=== PATIENT | female | born 1980 | race Caucasian/White ===

== ENCOUNTER 2017-01-27 09:12 | Emergency (ER) | payer BC ==
--- NOTE | 2017-01-27 10:06 | EDM.PDOC ---
ED HPI GENERAL MEDICAL PROBLEM - General Chief Complaint: General Stated Complaint: LOW BLOOD PRESSURE Time Seen by Provider: 01/27/17 09:20 - History of Present Illness INITIAL COMMENTS - FREE TEXT/NARRATIVE: History of present illness: [36 yo female with history of HTN presents with low blood pressure 80/60. She was feeling lightheaded and nauseated this morning. She checked her blood pressure again it was 70/60. She is taking losartan and HCTZ everyday. No recent dose changes. She does have a viral illness for a week which was mild othewise no new changes. She is chronic smoker and does not know if she has COPD. She denies fever, chills, vomiting, diarrhea, abdominal pain, chest pain, sob, cough] Review of systems: As per history of present illness and below otherwise all systems reviewed and negative. Past medical history: As per history of present illness and as reviewed below otherwise noncontributory. Surgical history: As per history of present illness and as reviewed below otherwise noncontributory. Social history: No reported history of drug or alcohol abuse. Family history: As per history of present illness and as reviewed below otherwise noncontributory. Physical exam: General: Well developed, well nourished in NAD HEENT: Atraumatic, normocephalic, pupils reactive, negative for conjunctival pallor or scleral icterus, mucous membranes moist, throat clear, neck supple, nontender, trachea midline. Lungs: Clear to auscultation, breath sounds equal bilaterally, chest nontender. Heart: S1S2, tachycardia regular rhythm , negative for clicks, rubs, or JVD. Abdomen: Soft, nondistended, nontender. Negative for masses or hepatosplenomegaly. Negative for costovertebral tenderness. Pelvis: Stable nontender. Genitourinary: Deferred. Rectal: Deferred. Extremities: Atraumatic, negative for cords or calf pain. Neurovascular unremarkable. Neuro: Awake, alert, oriented. Cranial nerves II through XII unremarkable. Cerebellum unremarkable. Motor and sensory unremarkable throughout. Exam nonfocal. Diagnostics: [cbc, bmp, ] Therapeutics: [IVF, potassium 40 meq po x 1 ] Impression: 1.Sinus Tachycardia [2. Hyptotension] Plan: [Tachycardia improved with IVF Her HR is 88 Advised to quit smoking, decrease caffeine f/u with pcp on monday. work note given until seen by PCP on monday.] Definitive disposition and diagnosis as appropriate pending reevaluation and review of above. - Related Data Allergies Allergy/AdvReac Type Severity Reaction Status Date / Time morphine Allergy Severe Difficulty Verified 01/27/17 09:17 Breathing Penicillins Allergy Severe Rash Verified 01/27/17 09:17 2 BP Meds Allergy Depression Uncoded 01/27/17 09:17 Home Meds: Home Meds LORazepam [Ativan] 0.5 mg PO ASDIRECTED PRN 06/02/15 [History] Losartan [Cozaar] 100 mg PO DAILY 06/02/15 [History] Albuterol Sulfate [Proair Hfa] 8.5 gm IH ASDIRECTED 01/17/16 [History] Aspirin 81 mg PO DAILY 04/10/16 [History] atorvaSTATin [Lipitor] 20 mg PO DAILY 04/10/16 [History] Hydrochlorothiazide 25 mg PO DAILY 10/12/16 [History] Past Medical History HEENT History: Reports: Impaired vision Cardiovascular History: Reports: Angina, High cholesterol, Hypertension Other Cardiovascular History: "time when heart does not relax" Gastrointestinal History: Reports: Cholelithiasis 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: Polycystic Ovaries Other OB/BYN History: CS Musculoskeletal History: Reports: Fracture Endocrine/Metabolic History: Reports: Obesity/BMI 30+ - Infectious Disease History Infectious Disease History: Reports: Chicken pox - Past Surgical History Female Surgical History: Reports: Cystectomy Social & Family History - Family History Family Medical History: Noncontributory - Tobacco Use Smoking Status *Q: Current Every Day Smoker Years of Tobacco use: 20 Packs/Tins Daily: 0.5 - Caffeine Use Caffeine Use: Reports: Soda - Recreational Drug Use Recreational Drug Use: No ED ROS GENERAL - Review of Systems Review Of Systems: See Below (See history of present illness) ED EXAM, GENERAL - Physical Exam Exam: See Below (The history of present illness) Course - Vital Signs Last Recorded V/S: Last Vital Signs Temp 97.4 F 01/27/17 09:19 Pulse 122 H 01/27/17 09:19 Resp 18 01/27/17 09:19 BP 122/79 01/27/17 09:19 Pulse Ox 99 01/27/17 09:19 Orthostatic Blood Pressure [ 95/61 Standing] Orthostatic Blood Pressure [ 122/75 Sitting] Orthostatic Blood Pressure [ 98/59 Supine] - Orders/Labs/Meds Orders: Active Orders 24 hr Category Date Time Status EKG Documentation Completion [RC] STAT Care 01/27/17 09:21 Active Orthostatic Vital Signs [RC] ASDIRECTED Care 01/27/17 10:20 Active MAGNESIUM [CHEM] Stat Lab 01/27/17 10:36 Received Potassium Chloride [Klor-Con M20] Med 01/27/17 11:45 Active 40 meq PO DAILY Medication Orders Potassium Chloride (Klor-Con M20) 40 meq PO DAILY SARA Labs: Laboratory Tests 01/27/17 01/27/17 01/27/17 Range/Units 10:36 10:36 10:36 WBC 9.04 (4.0-11.0) K/uL RBC 5.11 (4.30-5.90) M/uL Hgb 15.8 (12.0-16.0) g/dL Hct 44.1 (36.0-46.0) % MCV 86.3 (80.0-98.0) fL MCH 30.9 (27.0-32.0) pg MCHC 35.8 (31.0-37.0) g/dL RDW Std Deviation 41.8 (28.0-62.0) fl RDW Coeff of Pascale 13 (11.0-15.0) % Plt Count 294 (150-400) K/uL MPV 9.30 (7.40-12.00) fL Neut % (Auto) 58.4 (48.0-80.0) % Lymph % (Auto) 29.9 (16.0-40.0) % Woods % (Auto) 9.3 (0.0-15.0) % Eos % (Auto) 1.8 (0.0-7.0) % Baso % (Auto) 0.6 (0.0-1.5) % Neut # (Auto) 5.3 (1.4-5.7) K/uL Lymph # (Auto) 2.7 H (0.6-2.4) K/uL Woods # (Auto) 0.8 (0.0-0.8) K/uL Eos # (Auto) 0.2 (0.0-0.7) K/uL Baso # (Auto) 0.1 (0.0-0.1) K/uL Nucleated RBC % 0.0 /100WBC Nucleated RBCs # 0 K/uL Sodium 135 L (136-146) mmol/L Potassium 3.0 L (3.5-5.1) mmol/L Chloride 99 (98-110) mmol/L Carbon Dioxide 23 (21-31) mmol/L BUN 17 (6.0-23.0) mg/dL Creatinine 1.3 (0.6-1.5) mg/dL Est Cr Clr Drug Dosing 46.41 mL/min Estimated GFR (MDRD) 45.8 ml/min Glucose 139 H (60-110) mg/dL Calcium 9.5 (8.8-10.8) mg/dL Troponin I < 0.10 (0.0-0.29) NG/ML Meds: Medications Generic Name Dose Route Start Last Admin Trade Name Freq PRN Reason Stop Dose Admin Potassium Chloride 40 meq 01/27/17 11:45 Klor-Con M20 PO DAILY SARA Discontinued Medications Generic Name Dose Route Start Last Admin Trade Name Freq PRN Reason Stop Dose Admin Sodium Chloride 1,000 mls @ 999 mls/hr 01/27/17 10:20 01/27/17 11:08 Normal Saline IV 01/27/17 11:20 999 mls/hr STAT ONE Administration Departure - Departure Time of Disposition: 12:03 Disposition: Home, Self-Care 01 Condition: good Clinical Impression: Hypotension Referrals: PCP,None [Primary Care Provider] - Forms: ED Department Discharge Additional Instructions: The following information is given to patients seen in the emergency department who are being discharged to home. This information is to outline your options for follow-up care. We provide all patients seen in our emergency department with a follow-up referral. The need for follow-up, as well as the timing and circumstances, are variable depending upon the specifics of your emergency department visit. If you don't have a primary care physician on staff, we will provide you with a referral. We always advise you to contact your personal physician following an emergency department visit to inform them of the circumstance of the visit and for follow-up with them and/or the need for any referrals to a consulting specialist. The emergency department will also refer you to a specialist when appropriate. This referral assures that you have the opportunity for follow-up care with a specialist. All of these measure are taken in an effort to provide you with optimal care, which includes your follow-up. Under all circumstances we always encourage you to contact your private physician who remains a resource for coordinating your care. When calling for follow-up care, please make the office aware that this follow-up is from your recent emergency room visit. If for any reason you are refused follow-up, please contact the [facility] Emergency Department at and asked to speak to the emergency department charge nurse. - My Orders Last 24 Hours: My Active Orders 01/27/17 09:21 EKG Documentation Completion [RC] STAT 01/27/17 10:20 Orthostatic Vital Signs [RC] ASDIRECTED 01/27/17 10:36 MAGNESIUM [CHEM] Stat 01/27/17 11:45 Potassium Chloride [Klor-Con M20] 40 meq PO DAILY - Assessment/Plan Last 24 Hours: My Active Orders 01/27/17 09:21 EKG Documentation Completion [RC] STAT 01/27/17 10:20 Orthostatic Vital Signs [RC] ASDIRECTED 01/27/17 10:36 MAGNESIUM [CHEM] Stat 01/27/17 11:45 Potassium Chloride [Klor-Con M20] 40 meq PO DAILY
[2017-01-27] MEDS ORDERED: Sodium Chloride 0.9% 1,000 ML IV ONE (10:20)
[2017-01-27] MEDS ORDERED: Potassium Chloride 20 MEQ Tab.ER PO SCH (11:45)
[2017-01-27 12:31] VITALS: BP 113/68
== END 2017-01-27 12:17 | disposition home or self-care (01) ==
LOC: MW.ED 09:12
DX: I95.9 Hypotension, unspecified (principal); R00.0 Tachycardia, unspecified; I20.9 Angina pectoris, unspecified; E78.00 Pure hypercholesterolemia, unspecified; F17.210 Nicotine dependence, cigarettes, uncomplicated; E66.9 Obesity, unspecified; Z68.37 Body mass index [BMI] 37.0-37.9, adult; Z79.82 Long term (current) use of aspirin; Z79.899 Other long term (current) drug therapy; Z88.0 Allergy status to penicillin; Z88.5 Allergy status to narcotic agent; Z90.49 Acquired absence of other specified parts of digestive tract
CPT/HCPCS: 36415; 80048; 83735; 84484; 85025; 93005; 96360; 99285; A9270; J7040; 99283

== ENCOUNTER 2018-01-15 14:47 | Observation (INO) | payer BC ==
[2018-01-15] MEDS ORDERED: Alum Hydrox/Mag Hydrox/Simeth 15 ML, Metoclopramide 5 MG, Lidocaine 2% 5 ML PO ONE ×3 (14:59)
[2018-01-15] MEDS ORDERED: Aspirin 81 MG Tab.Chew PO ONE (14:59)
[2018-01-15] MEDS ORDERED: Sodium Chloride 0.9% 10 ML Syringe FLUSH PRN (14:59)
[2018-01-15] MEDS ORDERED: Famotidine 20 MG/2 ML SDV IVPUSH ONE (14:59)
[2018-01-15] MEDS ORDERED: Sodium Chloride 0.9% 2.5 ML Syringe FLUSH PRN (14:59)
[2018-01-15] MEDS ORDERED: Sodium Chloride 0.9% 1,000 ML IV ONE (14:59)
--- NOTE | 2018-01-15 15:16 | EDM.PDOC ---
ED HPI GENERAL MEDICAL PROBLEM - General Chief Complaint: Cardiovascular Problem Stated Complaint: HBP Time Seen by Provider: 01/15/18 15:14 Source of Information: Reports: Patient History Limitations: Reports: No Limitations - History of Present Illness INITIAL COMMENTS - FREE TEXT/NARRATIVE: HISTORY AND PHYSICAL: []37-year-old female presenting with elevated blood pressure tightness across the anterior chest History of Present Illness: []She has been having these symptoms for the last 3 days. Patient's regular physician is Dr. Floyd Sahni at [facility]. Denies any chest pain arm difficulties pain into her jaw She does have a headache. Patient has taken beta socorro of metoprolol in the past. she relates to having increased depression after taking it for a period of time. Review of Systems: As per history of present illness and below otherwise all systems reviewed and negative. Past medical history: As per history of present illness and as reviewed below otherwise noncontributory. Surgical history: As per history of present illness and as reviewed below otherwise noncontributory. Social history: No reported history of drug or alcohol abuse. Family history: As per history of present illness and as reviewed below otherwise noncontributory. Physical exam: Alert and oriented obese female who is answering questions appropriately. She is speaking in full sentences without any shortness of breath. Patient does state that she is out of breath when she walks across the room and she has had a full workup by Dr. Rebolledo [employer] HEENT: Atraumatic, normocehpalic, pupils reactive, negative for conjunctival pallor or scleral icterus, mucous membranes moist, throat clear, neck supple, nontender, trachea midline. No carotid bruit. Lungs: Clear to auscultation, breath sounds equal bilaterally, chest tender on light palpation. Heart: S1S2, regular, negative for clicks, rubs, or JVD. Abdomen: Soft, nondistended, nontender. Negative for masses or hepatossplenmegaly. Negative for costovertebral tenderness. Pelvis: Stable nontender. Genitourinary: Deferred. Rectal: Deferred Extremities: Atraumatic, negative for cords or calf pain. Neurovascular unremarkable. Neuro: Awake, alert, oriented. Cranial nerves II through XII unremarkable. Cerebellum unremarkable. Motor and sensory unremarkable throughout. Exam nonfocal. discussed the test results with patient. have recommended the Cardizem 30 mg po she is agreeable to trial this medication. While laying down pulse oximeter heart rate showing 40 . EKG requested showing rate in the 80s but a bigeminal rate was noted . Have discussed this case with Dr. Reddy who is agreeable for observation on telemetry. Diagnostics: [CBC CMP troponin chest x-ray urine ] Amylase lipase EKG Therapeutics: []Cardizem 30 mg by mouth LR 1 L Pepcid IV Aspirin 324 Impression: [Hypertension uncontrolled] Chest wall pain Plan: []Refer to observation Telemetry Definitive disposition and diagnosis as appropriate pending reevaluation and review of above. Onset: Gradual Duration: Day(s): (3) Location: Reports: Chest Quality: Reports: Other (tightness) Severity: Moderate Improves with: Reports: None Worsens with: Reports: None Associated Symptoms: Reports: No Other Symptoms Chest Pain Score (Numeric/FACES): 1 Headache Pain Score (Numeric/FACES): 9 - Related Data Allergies Allergy/AdvReac Type Severity Reaction Status Date / Time morphine Allergy Severe Difficulty Verified 01/15/18 15:12 Breathing Penicillins Allergy Severe Rash Verified 01/15/18 15:12 2 BP Meds Allergy Depression Uncoded 01/27/17 09:17 Home Meds: Home Meds LORazepam [Ativan] 0.5 mg PO BID PRN 06/02/15 [History] Losartan [Cozaar] 100 mg PO DAILY 06/02/15 [History] Albuterol Sulfate [Proair Hfa] 8.5 gm IH ASDIRECTED 01/17/16 [History] Aspirin 81 mg PO DAILY 04/10/16 [History] atorvaSTATin [Lipitor] 20 mg PO DAILY 04/10/16 [History] Hydrochlorothiazide 12.5 mg PO DAILY 10/12/16 [History] Potassium Chloride [Klor-Con M20] 20 meq PO DAILY 01/15/18 [History] buPROPion [buPROPion XL] 150 mg PO DAILY 01/15/18 [History] metFORMIN HCl [Metformin HCl] 1,000 mg PO BIDAC 01/15/18 [History] Past Medical History HEENT History: Reports: Impaired Vision Cardiovascular History: Reports: Angina, High Cholesterol, Hypertension Other Cardiovascular History: "time when heart does not relax" Gastrointestinal History: Reports: Cholelithiasis [employer]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 Other OB/BYN History: CS Musculoskeletal History: Reports: Fracture Endocrine/Metabolic History: Reports: Obesity/BMI 30+ - Infectious Disease History Infectious Disease History: Reports: Chicken Pox - Past Surgical History Female Surgical History: Reports: Cystectomy Social & Family History - Family History Family Medical History: Noncontributory - Tobacco Use Smoking Status *Q: Current Every Day Smoker Years of Tobacco use: 20 Packs/Tins Daily: 0.5 - Caffeine Use Caffeine Use: Reports: Soda - Recreational Drug Use Recreational Drug Use: No ED ROS GENERAL - Review of Systems Review Of Systems: ROS reveals no pertinent complaints other than HPI. ED EXAM, GENERAL - Physical Exam Exam: See Below (see dictation) Course - Vital Signs Last Recorded V/S: Last Vital Signs Temp 36.8 C 01/15/18 17:20 Pulse 45 L 01/15/18 17:20 Resp 20 01/15/18 17:20 BP 129/88 01/15/18 19:51 Pulse Ox 95 01/15/18 17:26 - Orders/Labs/Meds Orders: Active Orders 24 hr Category Date Time Status EKG Documentation Completion [RC] STAT Care 01/15/18 14:59 Active EKG Documentation Completion [RC] STAT Care 01/15/18 16:59 Active Oxygen Therapy [RC] ASDIRECTED Care 01/15/18 14:59 Active Sodium Chloride 0.9% [Saline Flush] Med 01/15/18 14:59 Active 10 ml FLUSH ASDIRECTED PRN Sodium Chloride 0.9% [Saline Flush] Med 01/15/18 14:59 Active 2.5 ml FLUSH ASDIRECTED PRN Saline Lock Insert [OM.PC] Stat Oth 01/15/18 14:59 Ordered Medication Orders Acetaminophen (Tylenol) 650 mg PO Q4H PRN PRN Reason: Pain (Mild 1-3)/fever Albuterol (Ventolin Hfa) 0 gm INH ASDIRECTED PRN PRN Reason: SHORTNESS OF BREATH Atorvastatin Calcium (Lipitor) 20 mg PO DAILY [facility] Last Admin: 01/15/18 19:54 Dose: 20 mg Bupropion HCl (Wellbutrin Xl) 150 mg PO DAILY [facility] Enoxaparin Sodium (Lovenox) 40 mg SUBCUT DAILY [facility] Last Admin: 01/15/18 19:55 Dose: 40 mg Hydrochlorothiazide (Hydrochlorothiazide) 12.5 mg PO DAILY [facility] Last Admin: 01/15/18 19:50 Dose: 12.5 mg Magnesium Sulfate 4 gm/ Premix 100 mls @ 25 mls/hr IV ONETIME ONE Stop: 01/15/18 22:58 Last Admin: 01/15/18 19:49 Dose: 25 mls/hr Losartan Potassium (Cozaar) 100 mg PO DAILY [facility] Last Admin: 01/15/18 19:51 Dose: 100 mg Ondansetron HCl (Zofran) 4 mg IVPUSH Q4H PRN PRN Reason: Nausea/Vomiting Sodium Chloride (Saline Flush) 10 ml FLUSH ASDIRECTED PRN PRN Reason: Keep Vein Open Sodium Chloride (Saline Flush) 2.5 ml FLUSH ASDIRECTED PRN PRN Reason: Keep Vein Open Labs: Laboratory Tests 01/15/18 01/15/18 01/15/18 Range/Units 15:14 15:14 15:14 WBC 8.80 (4.0-11.0) K/uL RBC 4.70 (4.30-5.90) M/uL Hgb 14.8 (12.0-16.0) g/dL Hct 41.3 (36.0-46.0) % MCV 87.9 (80.0-98.0) fL MCH 31.5 (27.0-32.0) pg MCHC 35.8 (31.0-37.0) g/dL RDW Std Deviation 43.0 (28.0-62.0) fl RDW Coeff of Pascale 13 (11.0-15.0) % Plt Count 272 (150-400) K/uL MPV 9.00 (7.40-12.00) fL Neut % (Auto) 62.9 (48.0-80.0) % Lymph % (Auto) 28.4 (16.0-40.0) % Barren % (Auto) 5.6 (0.0-15.0) % Eos % (Auto) 2.8 (0.0-7.0) % Baso % (Auto) 0.3 (0.0-1.5) % Neut # (Auto) 5.5 (1.4-5.7) K/uL Lymph # (Auto) 2.5 H (0.6-2.4) K/uL Barren # (Auto) 0.5 (0.0-0.8) K/uL Eos # (Auto) 0.3 (0.0-0.7) K/uL Baso # (Auto) 0.0 (0.0-0.1) K/uL Nucleated RBC % 0.0 /100WBC Nucleated RBCs # 0 K/uL INR 0.94 Sodium 135 L (136-145) mmol/L Potassium 3.8 (3.5-5.1) mmol/L Chloride 101 (98-107) mmol/L Carbon Dioxide 23.8 (21.0-32.0) mmol/L BUN 10 (7.0-18.0) mg/dL Creatinine 0.7 (0.6-1.0) mg/dL Est Cr Clr Drug Dosing 85.34 mL/min Estimated GFR (MDRD) > 60.0 ml/min Glucose 227 H (74-106) mg/dL Hemoglobin A1c (4.5-6.2) % Calcium 8.1 L (8.5-10.1) mg/dL Magnesium (1.5-2.0) mg/dL Total Bilirubin 0.2 (0.2-1.0) mg/dL AST 19 (15-37) IU/L ALT 38 (14-63) IU/L Alkaline Phosphatase 65 (46-116) U/L Troponin I < 0.050 (0.000-0.056) ng/mL Total Protein 6.6 (6.4-8.2) g/dL Albumin 3.2 L (3.4-5.0) g/dL Globulin 3.4 (2.0-3.5) g/dL Albumin/Globulin Ratio 0.9 L (1.3-2.8) Amylase 27 (25-115) U/L Lipase 117 (73-393) U/L Urine Color Urine Appearance Urine pH (5.0-8.0) Ur Specific [place] (1.001-1.035) Urine Protein (NEGATIVE) mg/dL Urine Glucose (UA) (NEGATIVE) mg/dL Urine Ketones (NEGATIVE) mg/dL Urine Occult Blood (NEGATIVE) Urine Nitrite (NEGATIVE) Urine Bilirubin (NEGATIVE) Urine Urobilinogen (<2.0) EU/dL Ur Leukocyte Esterase (NEGATIVE) Urine RBC (0-2/HPF) Urine WBC (0-5/HPF) Ur Epithelial Cells (NONE-FEW) Urine Bacteria (NEGATIVE) Urine HCG, Qual (NEGATIVE) 01/15/18 01/15/18 01/15/18 Range/Units 15:14 15:47 16:13 WBC (4.0-11.0) K/uL RBC (4.30-5.90) M/uL Hgb (12.0-16.0) g/dL Hct (36.0-46.0) % MCV (80.0-98.0) fL MCH (27.0-32.0) pg MCHC (31.0-37.0) g/dL RDW Std Deviation (28.0-62.0) fl RDW Coeff of Pascale (11.0-15.0) % Plt Count (150-400) K/uL MPV (7.40-12.00) fL Neut % (Auto) (48.0-80.0) % Lymph % (Auto) (16.0-40.0) % Barren % (Auto) (0.0-15.0) % Eos % (Auto) (0.0-7.0) % Baso % (Auto) (0.0-1.5) % Neut # (Auto) (1.4-5.7) K/uL Lymph # (Auto) (0.6-2.4) K/uL Barren # (Auto) (0.0-0.8) K/uL Eos # (Auto) (0.0-0.7) K/uL Baso # (Auto) (0.0-0.1) K/uL Nucleated RBC % /100WBC Nucleated RBCs # K/uL INR Sodium (136-145) mmol/L Potassium (3.5-5.1) mmol/L Chloride (98-107) mmol/L Carbon Dioxide (21.0-32.0) mmol/L BUN (7.0-18.0) mg/dL Creatinine (0.6-1.0) mg/dL Est Cr Clr Drug Dosing mL/min Estimated GFR (MDRD) ml/min Glucose (74-106) mg/dL Hemoglobin A1c 6.5 H (4.5-6.2) % Calcium (8.5-10.1) mg/dL Magnesium 1.2 L (1.5-2.0) mg/dL Total Bilirubin (0.2-1.0) mg/dL AST (15-37) IU/L ALT (14-63) IU/L Alkaline Phosphatase (46-116) U/L Troponin I (0.000-0.056) ng/mL Total Protein (6.4-8.2) g/dL Albumin (3.4-5.0) g/dL Globulin (2.0-3.5) g/dL Albumin/Globulin Ratio (1.3-2.8) Amylase (25-115) U/L Lipase (73-393) U/L Urine Color Urine Appearance Urine pH (5.0-8.0) Ur Specific [place] (1.001-1.035) Urine Protein (NEGATIVE) mg/dL Urine Glucose (UA) (NEGATIVE) mg/dL Urine Ketones (NEGATIVE) mg/dL Urine Occult Blood (NEGATIVE) Urine Nitrite (NEGATIVE) Urine Bilirubin (NEGATIVE) Urine Urobilinogen (<2.0) EU/dL Ur Leukocyte Esterase (NEGATIVE) Urine RBC (0-2/HPF) Urine WBC (0-5/HPF) Ur Epithelial Cells (NONE-FEW) Urine Bacteria (NEGATIVE) Urine HCG, Qual NEGATIVE (NEGATIVE) 01/15/18 Range/Units 16:16 WBC (4.0-11.0) K/uL RBC (4.30-5.90) M/uL Hgb (12.0-16.0) g/dL Hct (36.0-46.0) % MCV (80.0-98.0) fL MCH (27.0-32.0) pg MCHC (31.0-37.0) g/dL RDW Std Deviation (28.0-62.0) fl RDW Coeff of Pascale (11.0-15.0) % Plt Count (150-400) K/uL MPV (7.40-12.00) fL Neut % (Auto) (48.0-80.0) % Lymph % (Auto) (16.0-40.0) % Barren % (Auto) (0.0-15.0) % Eos % (Auto) (0.0-7.0) % Baso % (Auto) (0.0-1.5) % Neut # (Auto) (1.4-5.7) K/uL Lymph # (Auto) (0.6-2.4) K/uL Barren # (Auto) (0.0-0.8) K/uL Eos # (Auto) (0.0-0.7) K/uL Baso # (Auto) (0.0-0.1) K/uL Nucleated RBC % /100WBC Nucleated RBCs # K/uL INR Sodium (136-145) mmol/L Potassium (3.5-5.1) mmol/L Chloride (98-107) mmol/L Carbon Dioxide (21.0-32.0) mmol/L BUN (7.0-18.0) mg/dL Creatinine (0.6-1.0) mg/dL Est Cr Clr Drug Dosing mL/min Estimated GFR (MDRD) ml/min Glucose (74-106) mg/dL Hemoglobin A1c (4.5-6.2) % Calcium (8.5-10.1) mg/dL Magnesium (1.5-2.0) mg/dL Total Bilirubin (0.2-1.0) mg/dL AST (15-37) IU/L ALT (14-63) IU/L Alkaline Phosphatase (46-116) U/L Troponin I (0.000-0.056) ng/mL Total Protein (6.4-8.2) g/dL Albumin (3.4-5.0) g/dL Globulin (2.0-3.5) g/dL Albumin/Globulin Ratio (1.3-2.8) Amylase (25-115) U/L Lipase (73-393) U/L Urine Color YELLOW Urine Appearance CLEAR Urine pH 7.0 (5.0-8.0) Ur Specific [place] 1.010 (1.001-1.035) Urine Protein NEGATIVE (NEGATIVE) mg/dL Urine Glucose (UA) >=1000 (NEGATIVE) mg/dL Urine Ketones NEGATIVE (NEGATIVE) mg/dL Urine Occult Blood NEGATIVE (NEGATIVE) Urine Nitrite NEGATIVE (NEGATIVE) Urine Bilirubin NEGATIVE (NEGATIVE) Urine Urobilinogen 0.2 (<2.0) EU/dL Ur Leukocyte Esterase NEGATIVE (NEGATIVE) Urine RBC 0-1 (0-2/HPF) Urine WBC 0-1 (0-5/HPF) Ur Epithelial Cells RARE (NONE-FEW) Urine Bacteria RARE (NEGATIVE) Urine HCG, Qual (NEGATIVE) Meds: Medications Generic Name Dose Route Start Last Admin Trade Name Cordell PRN Reason Stop Dose Admin Acetaminophen 650 mg 01/15/18 18:58 Tylenol PO Q4H PRN Pain (Mild 1-3)/fever Albuterol 0 gm 01/15/18 19:27 Ventolin Hfa INH ASDIRECTED PRN SHORTNESS OF BREATH Atorvastatin Calcium 20 mg 01/15/18 19:30 01/15/18 19:54 Lipitor PO 20 mg DAILY SARA Administration Bupropion HCl 150 mg 01/16/18 09:00 Wellbutrin Xl PO DAILY SARA Enoxaparin Sodium 40 mg 01/15/18 19:00 01/15/18 19:55 Lovenox SUBCUT 40 mg DAILY SARA Administration Hydrochlorothiazide 12.5 mg 01/15/18 19:15 01/15/18 19:50 Hydrochlorothiazide PO 12.5 mg DAILY SARA Administration Magnesium Sulfate 4 gm/ Premix 100 mls @ 25 mls/hr 01/15/18 18:59 01/15/18 19 :49 IV 01/15/18 22:58 25 mls/hr ONETIME ONE Administration Losartan Potassium 100 mg 01/15/18 19:15 01/15/18 19:51 Cozaar PO 100 mg DAILY SARA Administration Ondansetron HCl 4 mg 01/15/18 18:58 Zofran IVPUSH Q4H PRN Nausea/Vomiting Sodium Chloride 10 ml 01/15/18 14:59 Saline Flush FLUSH ASDIRECTED PRN Keep Vein Open Sodium Chloride 2.5 ml 01/15/18 14:59 Saline Flush FLUSH ASDIRECTED PRN Keep Vein Open Discontinued Medications Generic Name Dose Route Start Last Admin Trade Name oCrdell PRN Reason Stop Dose Admin Aspirin 324 mg 01/15/18 14:59 01/15/18 15:31 Aspirin PO 01/15/18 15:00 324 mg ONETIME ONE Administration Al Hydroxide/Mg Hydroxide 15 0 ml 01/15/18 14:59 01/15/18 15:32 ml/ Metoclopramide HCl 5 mg/ PO 01/15/18 15:00 1 each Lidocaine HCl 5 ml ONETIME ONE Administration Diltiazem HCl 30 mg 01/15/18 16:11 01/15/18 16:34 Cardizem PO 01/15/18 16:12 30 mg ONETIME ONE Administration Famotidine 20 mg 01/15/18 14:59 01/15/18 15:33 Pepcid IVPUSH 01/15/18 15:00 20 mg ONETIME ONE Administration Sodium Chloride 1,000 mls @ 999 mls/hr 01/15/18 14:59 01/15/18 15:37 Normal Saline IV 01/15/18 15:59 Not Given .Bolus ONE Lactated Ringer's 1,000 mls @ 999 mls/hr 01/15/18 15:34 01/15/18 15:35 Ringers, Lactated IV 01/15/18 16:34 999 mls/hr .BOLUS ONE Administration Departure - Departure Time of Disposition: 17:15 Disposition: Refer to Observation Condition: Good Clinical Impression: Bradycardia High blood pressure Qualifiers: Hypertension type: unspecified Qualified Code(s): I10 - Essential (primary) hypertension - My Orders Last 24 Hours: My Active Orders 01/15/18 14:59 EKG Documentation Completion [RC] STAT Oxygen Therapy [RC] ASDIRECTED Sodium Chloride 0.9% [Saline Flush] 10 ml FLUSH ASDIRECTED PRN Sodium Chloride 0.9% [Saline Flush] 2.5 ml FLUSH ASDIRECTED PRN Saline Lock Insert [OM.PC] Stat 01/15/18 16:59 EKG Documentation Completion [RC] STAT - Assessment/Plan Last 24 Hours: My Active Orders 01/15/18 14:59 EKG Documentation Completion [RC] STAT Oxygen Therapy [RC] ASDIRECTED Sodium Chloride 0.9% [Saline Flush] 10 ml FLUSH ASDIRECTED PRN Sodium Chloride 0.9% [Saline Flush] 2.5 ml FLUSH ASDIRECTED PRN Saline Lock Insert [OM.PC] Stat 01/15/18 16:59 EKG Documentation Completion [RC] STAT
[2018-01-15] MEDS ORDERED: Lactated Ringers 1,000 ML IV ONE (15:34)
[2018-01-15 15:54] LABS: CHLORIDE,CL 101 mmol/L (98-107); SODIUM,NA 135 mmol/L (136-145)
[2018-01-15] MEDS ORDERED: Diltiazem IR 30 MG Tab PO ONE (16:11)
[2018-01-15] MEDS ORDERED: Acetaminophen 325 MG Tab PO PRN (18:58)
[2018-01-15] MEDS ORDERED: Ondansetron 4 MG/2 ML SDV IVPUSH PRN (18:58)
[2018-01-15] MEDS ORDERED: Magnesium Sulfate/Water 4 GM in Premix Bag 1 BAG IV ONE (18:59)
--- NOTE | 2018-01-15 19:19 | PCM.HP ---
H&P History of Present Illness - General Date of Service: 01/15/18 Source of Information: Patient History Limitations: Reports: No Limitations - History of Present Illness Initial Comments - Free Text/Narative: Is a 37-year-old female who is being admitted secondary to headaches feeling of unwellness, shortness of breath, chest pain radiating to the back sharp in nature. Patient has a significant past medical history of hypertension, atypical chest pain, elevated cholesterol levels. Patient states that she has been on a lisinopril and hydrochlorothiazide for her hypertensive medication and generally has been quite well controlled except for the last month. Patient states that within this last month she has been placed on a prednisone burst along with an anti-inflammatory which she believes resulted in her hypertension becoming more unbalanced and uncontrolled. Patient states that her blood pressures now have been ranging in the 150s to 170s systolically and 80s 200s diastolically. Patient also complains of periodic episodes of heart palpitations , feeling of her heart racing extremely fast, and at times even slowing down. About a year ago been assessed with a nuclear medicine stress test, echocardiogram, and other interventions which really did not show any ischemic findings at that time. Patient states that she was also put on a Holter monitor a number of years back for possible heart palpitation related issues. Chest Pain Score (Numeric/FACES): 1 Headache Pain Score (Numeric/FACES): 5 - Related Data Allergies/Adverse Reactions: Allergies Allergy/AdvReac Type Severity Reaction Status Date / Time morphine Allergy Severe Difficulty Verified 01/15/18 15:12 Breathing Penicillins Allergy Severe Rash Verified 01/15/18 15:12 2 BP Meds Allergy Depression Uncoded 01/27/17 09:17 Home Medications: Home Meds LORazepam [Ativan] 0.5 mg PO BID PRN 06/02/15 [History] Losartan [Cozaar] 100 mg PO DAILY 06/02/15 [History] Albuterol Sulfate [Proair Hfa] 8.5 gm IH ASDIRECTED 01/17/16 [History] Aspirin 81 mg PO DAILY 04/10/16 [History] atorvaSTATin [Lipitor] 20 mg PO DAILY 04/10/16 [History] Hydrochlorothiazide 12.5 mg PO DAILY 10/12/16 [History] Potassium Chloride [Klor-Con M20] 20 meq PO DAILY 01/15/18 [History] buPROPion [buPROPion XL] 150 mg PO DAILY 01/15/18 [History] metFORMIN HCl [Metformin HCl] 1,000 mg PO BIDAC 01/15/18 [History] Past Medical History HEENT History: Reports: Impaired Vision Cardiovascular History: Reports: Angina, High Cholesterol, Hypertension Other Cardiovascular History: "time when heart does not relax"; stress test X1 year, patient voices "results were okay, some issue with something in my heart" Gastrointestinal History: Reports: Cholelithiasis [employer] AD[employer] 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: Reports: Polycystic Ovaries Other OB/BYN History: CS Musculoskeletal History: Reports: Fracture Psychiatric History: Reports: Anxiety, Dementia, Other (See Below) Other Psychiatric History: voices seasonal depression Endocrine/Metabolic History: Reports: Obesity/BMI 30+ - Infectious Disease History Infectious Disease History: Reports: Chicken Pox - Past Surgical History GI Surgical History: Reports: Cholecystectomy Female Surgical History: Reports: Cystectomy Social & Family History - Family History Family Medical History: Noncontributory - Tobacco Use Smoking Status *Q: Current Every Day Smoker Years of Tobacco use: 20 Packs/Tins Daily: 1 Used Tobacco, but Quit: No - Caffeine Use Caffeine Use: Reports: Soda - Recreational Drug Use Recreational Drug Use: No H&P Review of Systems - Review of Systems: Review Of Systems: ROS reveals no pertinent complaints other than HPI. Exam - Exam Exam: See Below - Vital Signs Vital Signs: Last Vital Signs Temp 36.8 C 01/15/18 17:20 Pulse 45 L 01/15/18 17:20 Resp 20 01/15/18 17:20 BP 146/72 H 01/15/18 17:20 Pulse Ox 95 01/15/18 17:26 Weight: 101.196 kg - Exam General: Alert, Oriented, Cooperative Lungs: Clear to Auscultation, Normal Respiratory Effort Cardiovascular: Irregular Rhythm, Tachycardia GI/Abdominal Exam: Normal Bowel Sounds Extremities: Normal Inspection - Patient Data Result Diagrams: 01/15/18 15:14 01/15/18 15:14 *Q Meaningful Use (ADM) - VTE *Q VTE Criteria *Q: - Stroke *Q Stroke Criteria *Q: - AMI *Q AMI Criteria *Q: Problem List Initiated/Reviewed/Updated: Yes Orders Last 24hrs: Active Orders 24 hr Category Date Time Status Patient Status [ADT] Routine ADT 01/15/18 18:58 Active Antiembolic Devices [RC] PER UNIT ROUTINE Care 01/15/18 19:00 Active Height and Weight [RC] UPON Care 01/15/18 18:58 Active Intake and Output [RC] QSHIFT Care 01/15/18 18:59 Active Notify Provider Vital Signs [RC] ASDIRECTED Care 01/15/18 18:59 Active Oxygen Therapy [RC] PRN Care 01/15/18 18:58 Active Pulse Oximetry [RC] CONTINUOUS Care 01/15/18 18:59 Active Telemetry Monitoring [Cardiac Monitoring] [RC] Q8H Care 01/15/18 17:23 Active Up With Assistance [RC] ASDIRECTED Care 01/15/18 18:58 Active VTE/DVT Education [RC] PER UNIT ROUTINE Care 01/15/18 18:58 Active Vital Signs [RC] Q4H Care 01/15/18 18:58 Active Heart Healthy Diet [DIET] Diet 01/15/18 Breakfast Active CBC WITH AUTO DIFF [HEME] AM Lab 01/16/18 05:11 Ordered COMPREHENSIVE METABOLIC PN,CMP [CHEM] AM Lab 01/16/18 05:11 Ordered GLYCOSYLATED HEMOGLOBIN,HGBA1C [CHEM] Routine Lab 01/15/18 15:47 Received MAGNESIUM [CHEM] AM Lab 01/16/18 05:11 Ordered PHOSPHORUS [CHEM] AM Lab 01/16/18 05:11 Ordered TROPONIN I [CHEM] Q6H Lab 01/15/18 21:00 Ordered TROPONIN I [CHEM] Q6H Lab 01/16/18 03:00 Ordered Acetaminophen [Tylenol] Med 01/15/18 18:58 Active 650 mg PO Q4H PRN Albuterol Sulfate [Proair Hfa] Med 01/15/18 19:15 Ordered 8.5 gm IH ASDIRECTED Enoxaparin [Lovenox] Med 01/15/18 19:00 Active 40 mg SUBCUT DAILY Hydrochlorothiazide Med 01/15/18 19:15 Ordered 12.5 mg PO DAILY Losartan [Cozaar] Med 01/15/18 19:15 Ordered 100 mg PO DAILY Magnesium Sulfate/Water [Magnesium Sulfate 4 GM in Med 01/15/18 18:59 Active Water 100 ML] 4 gm Premix Bag 1 bag IV ONETIME Ondansetron [Zofran] Med 01/15/18 18:58 Active 4 mg IVPUSH Q4H PRN atorvaSTATin [Lipitor] Med 01/15/18 19:15 Ordered 20 mg PO DAILY buPROPion [Wellbutrin XL] Med 01/16/18 09:00 Active 150 mg PO DAILY Sequential Compression Device [OM.PC] Per Unit Routine Oth 01/15/18 19:00 Ordered Resuscitation Status Routine Resus Stat 01/15/18 18:58 Ordered Medication Orders Acetaminophen (Tylenol) 650 mg PO Q4H PRN PRN Reason: Pain (Mild 1-3)/fever Atorvastatin Calcium (Lipitor) 20 mg PO DAILY SARA Bupropion HCl (Wellbutrin Xl) 150 mg PO DAILY SARA Enoxaparin Sodium (Lovenox) 40 mg SUBCUT DAILY SARA Hydrochlorothiazide (Hydrochlorothiazide) 12.5 mg PO DAILY SARA Magnesium Sulfate 4 gm/ Premix 100 mls @ 25 mls/hr IV ONETIME ONE Stop: 01/15/18 22:58 Losartan Potassium (Cozaar) 100 mg PO DAILY SARA Non-Formulary Medication (Albuterol Sulfate [Proair Hfa]) 8.5 gm IH ASDIRECTED SARA Ondansetron HCl (Zofran) 4 mg IVPUSH Q4H PRN PRN Reason: Nausea/Vomiting Sodium Chloride (Saline Flush) 10 ml FLUSH ASDIRECTED PRN PRN Reason: Keep Vein Open Sodium Chloride (Saline Flush) 2.5 ml FLUSH ASDIRECTED PRN PRN Reason: Keep Vein Open Assessment/Plan Comment:: 37-year-old obese female presenting with chest pain, palpitations, recent uncontrolled hypertension to assess include ischemic cardiac disease, heart induction abnormalities. #1. Chest pain, palpitations, uncontrolled hypertension of recent onset Patient to be admitted under observation, telemetry for cardiac monitoring, restart patient's home medication of lisinopril and hydrochlorothiazide, trend troponins 3 Everything comes back normal we will order a repeat a Holter monitor and have the patient follow-up with cardiology for reassessment of those findings. Anticipated length of stay less than 2 midnights.
[2018-01-15] MEDS ORDERED: Albuterol 8 GM Inhaler INH PRN (19:27)
[2018-01-15] MEDS: Hydrochlorothiazide 25 MG Tab PO SCH (19:50)
[2018-01-15] MEDS: Losartan 50 MG Tab PO SCH (19:51)
[2018-01-15] MEDS: atorvaSTATin 20 MG Tab PO SCH (19:54)
[2018-01-15] MEDS: Enoxaparin 40 MG/0.4 ML Syringe SUBCUT SCH (19:55)
[2018-01-16 03:33] LABS: CHLORIDE,CL 104 mmol/L (98-107); SODIUM,NA 137 mmol/L (136-145)
[2018-01-16] MEDS ORDERED: buPROPion 150 MG Tab.ER PO SCH (09:00)
--- NOTE | 2018-01-16 09:20 | PCM.DCSUM1 ---
Discharge Summary - Hospital Course HPI Initial Comments: Discharge Summary Date of admission: 01/15/2018 Date of discharge: 01/16/2013 Admitting diagnosis: #1. Acute chest pain, heart palpitations, chest discomfort ACS rule out #2. Recent history of hypertension uncontrolled #3. #4. #5. Discharge diagnoses: #1. ACS ruled out, patient troponins negative 3, no longer having chest pain #2. History of hypertension uncontrolled #3. #4. #5. Consultations: None Procedures: None Hospitalization course: Patient was admitted secondary to acute chest pain, acute coronary syndrome rule out. Patient was troponin negative 3 while under observation. Patient did not have any abnormal rhythm while on telemetry. 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 Disposition on discharge: Home Condition on discharge: Stable Discharge medications: Continuation of home medication with instructions of optimalization to be done by PCP and cardiology Follow-up instructions: Follow-up with primary care provider, follow-up with cardiology outpatient setting - Discharge Data Discharge Date: 01/16/18 Discharge Disposition: Home, Self-Care 01 Condition: Fair - Discharge Plan Home Medications: Home Meds LORazepam [Ativan] 0.5 mg PO BID PRN 06/02/15 [History] Losartan [Cozaar] 100 mg PO DAILY 06/02/15 [History] Albuterol Sulfate [Proair Hfa] 8.5 gm IH ASDIRECTED 01/17/16 [History] Aspirin 81 mg PO DAILY 04/10/16 [History] atorvaSTATin [Lipitor] 20 mg PO DAILY 04/10/16 [History] Hydrochlorothiazide 12.5 mg PO DAILY 10/12/16 [History] Potassium Chloride [Klor-Con M20] 20 meq PO DAILY 01/15/18 [History] buPROPion [buPROPion XL] 150 mg PO DAILY 01/15/18 [History] metFORMIN HCl [Metformin HCl] 1,000 mg PO BIDAC 01/15/18 [History] Patient Handouts: Bradycardia, Adult, Hypertension, [id number] Referrals: Richie Gray MD [Physician] - 01/24/18 10:00 am Floyd Sahni MD [Physician] - 03/27/18 2:00 pm - Discharge Summary/Plan Comment DC Time >30 min.: No - Patient Data Vitals - Most Recent: Last Vital Signs Temp 36.1 C 01/16/18 07:38 Pulse 78 01/16/18 07:38 Resp 20 01/16/18 07:38 BP 140/104 H 01/16/18 07:38 Pulse Ox 98 01/16/18 07:38 Weight - Most Recent: 101.196 kg I&O - Last 24 hours: Intake & Output 01/15/18 01/16/18 01/16/18 22:59 06:59 14:59 Intake Total 1300 Output Total 1950 Balance -650 Lab Results - Last 24 hrs: Laboratory Results - last 24 hr 01/15/18 01/16/18 01/16/18 Range/Units 21:06 03:00 03:00 WBC 7.62 (4.0-11.0) K/uL RBC 4.53 (4.30-5.90) M/uL Hgb 13.9 (12.0-16.0) g/dL Hct 39.8 (36.0-46.0) % MCV 87.9 (80.0-98.0) fL MCH 30.7 (27.0-32.0) pg MCHC 34.9 (31.0-37.0) g/dL RDW Std Deviation 42.9 (28.0-62.0) fl RDW Coeff of Pascale 13 (11.0-15.0) % Plt Count 255 (150-400) K/uL MPV 8.90 (7.40-12.00) fL Neut % (Auto) 53.4 (48.0-80.0) % Lymph % (Auto) 35.4 (16.0-40.0) % [place] % (Auto) 7.9 (0.0-15.0) % Eos % (Auto) 3.0 (0.0-7.0) % Baso % (Auto) 0.3 (0.0-1.5) % Neut # (Auto) 4.1 (1.4-5.7) K/uL Lymph # (Auto) 2.7 H (0.6-2.4) K/uL [place] # (Auto) 0.6 (0.0-0.8) K/uL Eos # (Auto) 0.2 (0.0-0.7) K/uL Baso # (Auto) 0.0 (0.0-0.1) K/uL Nucleated RBC % 0.0 /100WBC Nucleated RBCs # 0 K/uL Sodium (136-145) mmol/L Potassium (3.5-5.1) mmol/L Chloride (98-107) mmol/L Carbon Dioxide (21.0-32.0) mmol/L BUN (7.0-18.0) mg/dL Creatinine (0.6-1.0) mg/dL Est Cr Clr Drug Dosing mL/min Estimated GFR (MDRD) ml/min Glucose (74-106) mg/dL Calcium (8.5-10.1) mg/dL Phosphorus (2.6-4.7) mg/dL Magnesium (1.5-2.0) mg/dL Total Bilirubin (0.2-1.0) mg/dL AST (15-37) IU/L ALT (14-63) IU/L Alkaline Phosphatase (46-116) U/L Troponin I < 0.050 < 0.050 (0.000-0.056) ng/mL Total Protein (6.4-8.2) g/dL Albumin (3.4-5.0) g/dL Globulin (2.0-3.5) g/dL Albumin/Globulin Ratio (1.3-2.8) 01/16/18 Range/Units 03:00 WBC (4.0-11.0) K/uL RBC (4.30-5.90) M/uL Hgb (12.0-16.0) g/dL Hct (36.0-46.0) % MCV (80.0-98.0) fL MCH (27.0-32.0) pg MCHC (31.0-37.0) g/dL RDW Std Deviation (28.0-62.0) fl RDW Coeff of Pascale (11.0-15.0) % Plt Count (150-400) K/uL MPV (7.40-12.00) fL Neut % (Auto) (48.0-80.0) % Lymph % (Auto) (16.0-40.0) % [place] % (Auto) (0.0-15.0) % Eos % (Auto) (0.0-7.0) % Baso % (Auto) (0.0-1.5) % Neut # (Auto) (1.4-5.7) K/uL Lymph # (Auto) (0.6-2.4) K/uL [place] # (Auto) (0.0-0.8) K/uL Eos # (Auto) (0.0-0.7) K/uL Baso # (Auto) (0.0-0.1) K/uL Nucleated RBC % /100WBC Nucleated RBCs # K/uL Sodium 137 (136-145) mmol/L Potassium 4.2 (3.5-5.1) mmol/L Chloride 104 (98-107) mmol/L Carbon Dioxide 23.8 (21.0-32.0) mmol/L BUN 8 (7.0-18.0) mg/dL Creatinine 0.6 (0.6-1.0) mg/dL Est Cr Clr Drug Dosing 99.56 mL/min Estimated GFR (MDRD) > 60.0 ml/min Glucose 125 H (74-106) mg/dL Calcium 8.0 L (8.5-10.1) mg/dL Phosphorus 3.5 (2.6-4.7) mg/dL Magnesium 2.1 H (1.5-2.0) mg/dL Total Bilirubin 0.3 (0.2-1.0) mg/dL AST 19 (15-37) IU/L ALT 32 (14-63) IU/L Alkaline Phosphatase 57 (46-116) U/L Troponin I (0.000-0.056) ng/mL Total Protein 6.1 L (6.4-8.2) g/dL Albumin 3.2 L (3.4-5.0) g/dL Globulin 2.9 (2.0-3.5) g/dL Albumin/Globulin Ratio 1.1 L (1.3-2.8) Med Orders - Current: Current Medications Acetaminophen (Tylenol) 650 mg PO Q4H PRN PRN Reason: Pain (Mild 1-3)/fever Last Admin: 01/16/18 05:37 Dose: 650 mg Albuterol (Ventolin Hfa) 0 gm INH Q4H PRN PRN Reason: SHORTNESS OF BREATH Atorvastatin Calcium (Lipitor) 20 mg PO DAILY [facility] Last Admin: 01/15/18 19:54 Dose: 20 mg Bupropion HCl (Wellbutrin Xl) 150 mg PO DAILY [facility] Enoxaparin Sodium (Lovenox) 40 mg SUBCUT DAILY [facility] Last Admin: 01/15/18 19:55 Dose: 40 mg Hydrochlorothiazide (Hydrochlorothiazide) 12.5 mg PO DAILY [facility] Last Admin: 01/15/18 19:50 Dose: 12.5 mg Losartan Potassium (Cozaar) 100 mg PO DAILY [facility] Last Admin: 01/15/18 19:51 Dose: 100 mg Ondansetron HCl (Zofran) 4 mg IVPUSH Q4H PRN PRN Reason: Nausea/Vomiting Sodium Chloride (Saline Flush) 10 ml FLUSH ASDIRECTED PRN PRN Reason: Keep Vein Open Sodium Chloride (Saline Flush) 2.5 ml FLUSH ASDIRECTED PRN PRN Reason: Keep Vein Open Discontinued Medications Aspirin (Aspirin) 324 mg PO ONETIME ONE Stop: 01/15/18 15:00 Last Admin: 01/15/18 15:31 Dose: 324 mg Al Hydroxide/Mg Hydroxide 15 ml/ Metoclopramide HCl 5 mg/Lidocaine HCl 5 ml 0 ml PO ONETIME ONE Stop: 01/15/18 15:00 Last Admin: 01/15/18 15:32 Dose: 1 each Diltiazem HCl (Cardizem) 30 mg PO ONETIME ONE Stop: 01/15/18 16:12 Last Admin: 01/15/18 16:34 Dose: 30 mg Famotidine (Pepcid) 20 mg IVPUSH ONETIME ONE Stop: 01/15/18 15:00 Last Admin: 01/15/18 15:33 Dose: 20 mg Sodium Chloride (Normal Saline) 1,000 mls @ 999 mls/hr IV .Bolus ONE Stop: 01/15/18 15:59 Last Admin: 01/15/18 15:37 Dose: Not Given Lactated Ringer's (Ringers, Lactated) 1,000 mls @ 999 mls/hr IV .BOLUS ONE Stop: 01/15/18 16:34 Last Admin: 01/15/18 15:35 Dose: 999 mls/hr Magnesium Sulfate 4 gm/ Premix 100 mls @ 25 mls/hr IV ONETIME ONE Stop: 01/15/18 22:58 Last Admin: 01/15/18 19:49 Dose: 25 mls/hr *Q Meaningful Use (DIS) - VTE *Q VTE Criteria *Q: - Stroke *Q Stroke Criteria *Q: - AMI *Q AMI Criteria *Q:
[2018-01-16] MEDS: Hydrochlorothiazide 25 MG Tab PO SCH (09:21)
[2018-01-16] MEDS: Losartan 50 MG Tab PO SCH (09:22)
[2018-01-16] MEDS: atorvaSTATin 20 MG Tab PO SCH (09:22)
[2018-01-16] MEDS: Enoxaparin 40 MG/0.4 ML Syringe SUBCUT SCH (09:24)
[2018-01-16 11:48] VITALS: BP 138/97
== END 2018-01-16 12:28 | disposition home or self-care (01) ==
LOC: MW.ED 14:47 → MW.MS 17:05
PROVIDERS: ADMIT Family Medicine; ATTEND Family Medicine
DX: I10 Essential (primary) hypertension (principal); R07.9 Chest pain, unspecified; E78.00 Pure hypercholesterolemia, unspecified; F41.9 Anxiety disorder, unspecified; F03.90 Unspecified dementia, unspecified severity, without behavioral disturbance, psychotic disturbance, mood disturbance, and anxiety; E66.9 Obesity, unspecified; F17.210 Nicotine dependence, cigarettes, uncomplicated; Z79.899 Other long term (current) drug therapy; Z79.82 Long term (current) use of aspirin; Z79.84 Long term (current) use of oral hypoglycemic drugs; Z88.5 Allergy status to narcotic agent; Z88.0 Allergy status to penicillin; Z68.30 Body mass index [BMI] 30.0-30.9, adult
CPT/HCPCS: 36415; 80053; 81001; 81025; 82150; 83036; 83690; 83735; 84100; 84484; 85025; 85610; 93005; 96361; 96374; 99285; A9270; J1650; J3475; J7120; 96365; 96366; 96372; 96375; 99283; G0378

== ENCOUNTER 2018-11-20 12:15 | Emergency (ER) | payer BC ==
[2018-11-20] MEDS ORDERED: Sodium Chloride 0.9% 2.5 ML Syringe FLUSH PRN (12:34)
[2018-11-20] MEDS ORDERED: Sodium Chloride 0.9% 10 ML Syringe FLUSH PRN (12:34)
--- NOTE | 2018-11-20 13:17 | EDM.PDOC ---
ED HPI GENERAL MEDICAL PROBLEM - General Chief Complaint: Chest Pain Stated Complaint: CHEST PAIN Time Seen by Provider: 11/20/18 12:15 Source of Information: Reports: Patient History Limitations: Reports: No Limitations - History of Present Illness INITIAL COMMENTS - FREE TEXT/NARRATIVE: Presents reporting chest pain. 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 She was slowly pushing able patient in a wheelchair. She experienced a sudden onset of stabbing chest pain in the lateral left upper chest "like somebody stabbed a dagger into my chest" the pain radiated to the left shoulder and down to the elbow. It was accompanied by a feeling of "being hot" and palpitations. The pain has since subsided and feels more like a soreness. She feels jittery but "not anxiety jittery" more like a "jitteriness after being nauseated". The patient states that she has a history of hypertension and palpitations as well as anxiety. She states that she has been under the care of both her primary care physician Dr. Floyd Alonso and Dr. Crisostomo in cardiology. Her blood pressure has recently been well controlled with Cozaar and hydrochlorothiazide and her palpitations with diltiazem. Her diltiazem dose was recently doubled. She takes when necessary Ativan for her anxiety but she has not needed any of late and did not feel anxious or have any anxiety triggers today. She continues to smoke. chest Pain Score (Numeric/FACES): 5 - Related Data Allergies Allergy/AdvReac Type Severity Reaction Status Date / Time morphine Allergy Severe Difficulty Verified 11/20/18 12:21 Breathing Penicillins Allergy Severe Rash Verified 11/20/18 12:21 2 BP Meds Allergy Depression Uncoded 01/27/17 09:17 Home Meds: Home Meds LORazepam [Ativan] 0.5 mg PO BID PRN 06/02/15 [History] Losartan [Cozaar] 100 mg PO DAILY 06/02/15 [History] Albuterol Sulfate [Proair Hfa] 8.5 gm IH ASDIRECTED 01/17/16 [History] Aspirin 81 mg PO DAILY 04/10/16 [History] atorvaSTATin [Lipitor] 20 mg PO DAILY 04/10/16 [History] Hydrochlorothiazide 12.5 mg PO DAILY 10/12/16 [History] Potassium Chloride [Klor-Con M20] 20 meq PO DAILY 01/15/18 [History] buPROPion [buPROPion XL] 150 mg PO DAILY 01/15/18 [History] metFORMIN HCl [Metformin HCl] 1,000 mg PO BIDAC 01/15/18 [History] Past Medical History HEENT History: Reports: Impaired Vision Cardiovascular History: Reports: Angina, Arrhythmia, High Cholesterol, Hypertension Other Cardiovascular History: "time when heart does not relax"; stress test X1 year, patient voices "results were okay, some issue with something in my heart" , trigemeny, dottieey, Respiratory History: Reports: None Gastrointestinal History: Reports: Cholelithiasis Genitourinary History: Reports: None 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: Polycystic 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 BIN WORKER History: CS Musculoskeletal History: Reports: Fracture Neurological History: Reports: None Psychiatric History: Reports: Anxiety, Dementia, Other (See Below) Other Psychiatric History: voices seasonal depression Endocrine/Metabolic History: Reports: Obesity/BMI 30+ Hematologic History: Reports: None Immunologic History: Reports: None Oncologic (Cancer) History: Reports: None Dermatologic History: Reports: None - Infectious Disease History Infectious Disease History: Reports: Chicken Pox - Past Surgical History Head Surgeries/Procedures: Reports: None HEENT Surgical History: Reports: None Cardiovascular Surgical History: Reports: None Respiratory Surgical History: Reports: None GI Surgical History: Reports: Cholecystectomy Female Surgical History: Reports: Cystectomy Endocrine Surgical History: Reports: None Neurological Surgical History: Reports: None Musculoskeletal Surgical History: Reports: None Oncologic Surgical History: Reports: None Dermatological Surgical History: Reports: None Social & Family History - Family History Family Medical History: Noncontributory - Tobacco Use Smoking Status *Q: Current Every Day Smoker Years of Tobacco use: 30 Packs/Tins Daily: 1 - Caffeine Use Caffeine Use: Reports: Soda - Recreational Drug Use Recreational Drug Use: No ED ROS GENERAL - Review of Systems Review Of Systems: ROS reveals no pertinent complaints other than HPI. ED EXAM, GENERAL - Physical Exam Exam: See Below Exam Limited By: No Limitations General Appearance: Alert, No Apparent Distress Ears: Normal External Exam Nose: Normal Inspection Throat/Mouth: Normal Inspection Head: Atraumatic, Normocephalic Neck: Normal Inspection, Supple Respiratory/Chest: No Respiratory Distress, Lungs Clear, Normal Breath Sounds, No Accessory Muscle Use, Other (Tenderness third intercostal space midclavicular line left) Cardiovascular: Regular Rate, Rhythm GI/Abdominal: Soft Extremities: Normal Inspection, No Pedal Edema Neurological: Alert, Oriented, Normal Cognition Psychiatric: Normal Affect, Normal Mood. No: Anxious Skin Exam: Warm, Dry, Intact, Normal Color Lymphatic: No Adenopathy Course - Vital Signs Last Recorded V/S: Last Vital Signs Temp 36.2 C 11/20/18 12:20 Pulse 115 H 11/20/18 12:20 Resp 18 11/20/18 12:20 BP 167/94 H 11/20/18 12:20 Pulse Ox 98 11/20/18 12:20 - Orders/Labs/Meds Orders: Active Orders 24 hr Category Date Time Status EKG Documentation Completion [RC] STAT Care 11/20/18 12:35 Ordered Sodium Chloride 0.9% [Saline Flush] Med 11/20/18 12:34 Ordered 10 ml FLUSH ASDIRECTED PRN Sodium Chloride 0.9% [Saline Flush] Med 11/20/18 12:34 Ordered 2.5 ml FLUSH ASDIRECTED PRN Saline Lock Insert [OM.PC] Stat Oth 11/20/18 12:34 Ordered Medication Orders Sodium Chloride (Saline Flush) 10 ml FLUSH ASDIRECTED PRN PRN Reason: Keep Vein Open Sodium Chloride (Saline Flush) 2.5 ml FLUSH ASDIRECTED PRN PRN Reason: Keep Vein Open Labs: Laboratory Tests 11/20/18 11/20/18 Range/Units 13:10 13:10 WBC 9.68 (4.0-11.0) K/uL RBC 4.84 (4.30-5.90) M/uL Hgb 14.9 (12.0-16.0) g/dL Hct 42.5 (36.0-46.0) % MCV 87.8 (80.0-98.0) fL MCH 30.8 (27.0-32.0) pg MCHC 35.1 (31.0-37.0) g/dL RDW Std Deviation 43.1 (28.0-62.0) fl RDW Coeff of Pascale 14 (11.0-15.0) % Plt Count 340 (150-400) K/uL MPV 9.00 (7.40-12.00) fL Neut % (Auto) 60.9 (48.0-80.0) % Lymph % (Auto) 30.0 (16.0-40.0) % [place] % (Auto) 5.7 (0.0-15.0) % Eos % (Auto) 2.8 (0.0-7.0) % Baso % (Auto) 0.6 (0.0-1.5) % Neut # (Auto) 5.9 H (1.4-5.7) K/uL Lymph # (Auto) 2.9 H (0.6-2.4) K/uL [place] # (Auto) 0.6 (0.0-0.8) K/uL Eos # (Auto) 0.3 (0.0-0.7) K/uL Baso # (Auto) 0.1 (0.0-0.1) K/uL Nucleated RBC % 0.0 /100WBC Nucleated RBCs # 0 K/uL Sodium 137 (136-145) mmol/L Potassium 3.3 L (3.5-5.1) mmol/L Chloride 103 (98-107) mmol/L Carbon Dioxide 25.0 (21.0-32.0) mmol/L BUN 6 L (7.0-18.0) mg/dL Creatinine 0.8 (0.6-1.0) mg/dL Est Cr Clr Drug Dosing 73.93 mL/min Estimated GFR (MDRD) > 60.0 ml/min Glucose 152 H (74-106) mg/dL Calcium 9.4 (8.5-10.1) mg/dL Total Bilirubin 0.3 (0.2-1.0) mg/dL AST 24 (15-37) IU/L ALT 32 (14-63) IU/L Alkaline Phosphatase 74 (46-116) U/L Troponin I < 0.050 (0.000-0.056) ng/mL C-Reactive Protein 0.40 (0.00-0.90) mg/dL Total Protein 7.5 (6.4-8.2) g/dL Albumin 3.7 (3.4-5.0) g/dL Globulin 3.8 (2.6-4.0) g/dL Albumin/Globulin Ratio 1.0 (0.9-1.6) Meds: Medications Generic Name Dose Route Start Last Admin Trade Name Cordell PRN Reason Stop Dose Admin Sodium Chloride 10 ml 11/20/18 12:34 Saline Flush FLUSH ASDIRECTED PRN Keep Vein Open Sodium Chloride 2.5 ml 11/20/18 12:34 Saline Flush FLUSH ASDIRECTED PRN Keep Vein Open - Re-Assessments/Exams Free Text/Narrative Re-Assessment/Exam: 11/20/18 14:08 The patient states that all of her symptoms has resolved--she does have tenderness in the left upper chest on palpation. Dr. Crisostomo, her health facilities surveyor reviewed the case. He will see her in the clinic Departure - Departure Time of Disposition: 14:09 Disposition: Home, Self-Care 01 Clinical Impression: Costochondral chest pain Referrals: Richie Gray MD [Physician] - Forms: ED Department Discharge Additional Instructions: 1. Your potassium is a little low. Please resume taking your potassium supplement today. 2. Aleve 2 in the morning and 2 at night or ibuprofen 2-3 tabs 3 times a day as needed for chest tenderness. Take with food 3. You have an appointment with Dr. Crisostomo, your health facilities surveyor on November 22 at 2: 30 PM at his clinic. 4. Return promptly for chest pain, shortness of breath, other worrisome symptoms. - My Orders Last 24 Hours: My Active Orders 11/20/18 12:34 Sodium Chloride 0.9% [Saline Flush] 10 ml FLUSH ASDIRECTED PRN Sodium Chloride 0.9% [Saline Flush] 2.5 ml FLUSH ASDIRECTED PRN Saline Lock Insert [OM.PC] Stat 11/20/18 12:35 EKG Documentation Completion [RC] STAT - Assessment/Plan Last 24 Hours: My Active Orders 11/20/18 12:34 Sodium Chloride 0.9% [Saline Flush] 10 ml FLUSH ASDIRECTED PRN Sodium Chloride 0.9% [Saline Flush] 2.5 ml FLUSH ASDIRECTED PRN Saline Lock Insert [OM.PC] Stat 11/20/18 12:35 EKG Documentation Completion [RC] STAT
[2018-11-20 13:47] LABS: CHLORIDE,CL 103 mmol/L (98-107); SODIUM,NA 137 mmol/L (136-145)
--- NOTE | 2018-11-20 13:55 | CR ---
EXAMINATION: Portable chest radiograph. HISTORY: Chest pain. FINDINGS: The trachea is midline. The cardiomediastinal silhouette is within normal limits. No pulmonary infiltrates, effusions or pneumothorax. Osseous structures appear unremarkable. IMPRESSION: No acute cardiopulmonary process.
[2018-11-20 15:13] VITALS: BP 138/80
== END 2018-11-20 14:21 | disposition home or self-care (01) ==
LOC: MW.ED 12:15
DX: R07.1 Chest pain on breathing (principal); F17.210 Nicotine dependence, cigarettes, uncomplicated; E78.00 Pure hypercholesterolemia, unspecified; I10 Essential (primary) hypertension; Z88.5 Allergy status to narcotic agent; Z88.0 Allergy status to penicillin; Z88.8 Allergy status to other drugs, medicaments and biological substances; Z79.899 Other long term (current) drug therapy
CPT/HCPCS: 36415; 71045; 71045-26; 80053; 84484; 85025; 86140; 93005; 99285-25

== ENCOUNTER 2019-05-09 04:21 | Emergency (ER) | payer BC ==
[2019-05-09] MEDS ORDERED: fentaNYL 100 MCG/2 ML SDV IVPUSH ONE (04:27)
[2019-05-09] MEDS ORDERED: Clopidogrel 75 MG Tab PO ONE (04:27)
[2019-05-09] MEDS ORDERED: Sodium Chloride 0.9% 2.5 ML Syringe FLUSH PRN (04:27)
[2019-05-09] MEDS ORDERED: Aspirin 81 MG Tab.Chew PO ONE (04:27)
[2019-05-09] MEDS ORDERED: Sodium Chloride 0.9% 10 ML Syringe FLUSH PRN (04:27)
[2019-05-09] MEDS ORDERED: Sodium Chloride 0.9% 1,000 ML IV ONE (04:27)
[2019-05-09] MEDS ORDERED: Heparin Sodium 5,000 Units/ML Vial IVPUSH ONE (04:29)
[2019-05-09] MEDS ORDERED: Heparin Sod,Pork In 0.45% Nacl 25,000 UNIT/500 ML IV.SOLN IV SCH (04:30)
[2019-05-09] MEDS ORDERED: Heparin Sod,Pork In 0.45% Nacl 25,000 UNIT/500 ML IV.SOLN IV ONE (04:38)
--- NOTE | 2019-05-09 04:43 | CR ---
INDICATION: Chest pain, shortness of breath TECHNIQUE: Chest radiograph 1 view COMPARISON: None FINDINGS: Severe degradation of image quality noted due to body habitus. Mediastinum: The mediastinum is normal in appearance. The heart silhouette is normal in size and morphology. Lung: Both lungs are unremarkable in appearance. No sign of pleural effusion seen. No pneumothorax is identified. IMPRESSION: 1. No acute cardiopulmonary disease is seen. Dictated by: Timothy Lugo MD @ 05/09/2019 04:42:28 (Electronically Signed)
--- NOTE | 2019-05-09 04:47 | EDM.PDOC ---
<Ernesto Zamarripa - Last Filed: 05/09/19 04:30> ED HPI GENERAL MEDICAL PROBLEM - General Chief Complaint: Cardiovascular Problem Stated Complaint: CHEST PAIN Time Seen by Provider: 05/09/19 04:22 - History of Present Illness INITIAL COMMENTS - FREE TEXT/NARRATIVE: HISTORY AND PHYSICAL: History of present illness: 38-year-old female presents to the emergency department this morning with shortness of breath. She has experienced chest pain and shortness of breath for the last 4 days. She is scheduled for an appointment with her primary care provider. However this morning her shortness of breath has if acutely worsened. The patient has a difficult time explaining her chest pain he points to her midsternum. She denies nausea or vomiting. She reports that she woke up in a cold sweat and had difficulty breathing. She stated "I know something is wrong. " She recently underwent a cardiac stress test in November 2018 which demonstrated no ischemic changes with an ejection fraction of 70% Review of systems: As per history of present illness and below otherwise all systems reviewed and negative. Past medical history: As per history of present illness and as reviewed below otherwise noncontributory. Surgical history: As per history of present illness and as reviewed below otherwise noncontributory. Social history: No reported history of drug or alcohol abuse. Family history: As per history of present illness and as reviewed below otherwise noncontributory. Physical exam: General: Ill appearing, in moderate distress, diaphoretic HEENT: Atraumatic, normocephalic, pupils reactive, negative for conjunctival pallor or scleral icterus, mucous membranes moist, throat clear, neck supple, nontender, trachea midline. Lungs: Clear to auscultation, breath sounds equal bilaterally, chest nontender. Heart: S1S2, regular, negative for clicks, rubs, or JVD. Abdomen: Soft, nondistended, nontender. Negative for masses or hepatosplenomegaly. . Pelvis: Stable nontender. Genitourinary: Deferred. Rectal: Deferred. Extremities: Cool and clamy. Atraumatic, negative for cords or calf pain. Neurovascular unremarkable. Neuro: Awake, alert, oriented. Cranial nerves II through XII unremarkable. Cerebellum unremarkable. Motor and sensory unremarkable throughout. Exam nonfocal. Diagnostics: EKG, CBC, CMP, INR, CXR, Troponin Therapeutics: Aspirin, 1L 0.9 NS Heparin gtt Plavix Impression: Inferior wall STEMI Plan: The patient had acute elevation in lead 2, 3 and aVF indicating a inferior wall GA. The case was shared with the ER Physican at [place]. He has accepted the patient and will be air lifted via [facility] to [place]. Her CXR is without acute findings. She will be given a 1 L bolus of 0.9 normal saline, aspirin, plaviix and a heparin gtt will be started. The patient refused fentanyl. Definitive disposition and diagnosis as appropriate pending reevaluation and review of above. - Related Data Allergies Allergy/AdvReac Type Severity Reaction Status Date / Time morphine Allergy Severe Difficulty Verified 11/20/18 12:21 Breathing Penicillins Allergy Severe Rash Verified 11/20/18 12:21 2 BP Meds Allergy Depression Uncoded 01/27/17 09:17 Home Meds: Home Meds LORazepam [Ativan] 0.5 mg PO BID PRN 06/02/15 [History] Losartan [Cozaar] 100 mg PO DAILY 06/02/15 [History] Albuterol Sulfate [Proair Hfa] 8.5 gm IH ASDIRECTED 01/17/16 [History] Aspirin 81 mg PO DAILY 04/10/16 [History] atorvaSTATin [Lipitor] 20 mg PO DAILY 04/10/16 [History] Hydrochlorothiazide 12.5 mg PO DAILY 10/12/16 [History] Potassium Chloride [Klor-Con M20] 20 meq PO DAILY 01/15/18 [History] buPROPion [buPROPion XL] 150 mg PO DAILY 01/15/18 [History] Past Medical History HEENT History: Reports: Impaired Vision Cardiovascular History: Reports: Angina, Arrhythmia, High Cholesterol, Hypertension Other Cardiovascular History: "time when heart does not relax"; stress test X1 year, patient voices "results were okay, some issue with something in my heart" , trigemdottie fentoney, Respiratory History: Reports: None Gastrointestinal History: Reports: Cholelithiasis Genitourinary History: Reports: None 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 POSTING SPECIALIST History: Reports: Polycystic Ovaries Other CASH POSTING SPECIALIST History: CS Musculoskeletal History: Reports: Fracture Neurological History: Reports: None Psychiatric History: Reports: Anxiety, Dementia, Other (See Below) Other Psychiatric History: voices seasonal depression Endocrine/Metabolic History: Reports: Obesity/BMI 30+ Hematologic History: Reports: None Immunologic History: Reports: None Oncologic (Cancer) History: Reports: None Dermatologic History: Reports: None - Infectious Disease History Infectious Disease History: Reports: Chicken Pox - Past Surgical History Head Surgeries/Procedures: Reports: None HEENT Surgical History: Reports: None Cardiovascular Surgical History: Reports: None Respiratory Surgical History: Reports: None GI Surgical History: Reports: Cholecystectomy Female Surgical History: Reports: Cystectomy Endocrine Surgical History: Reports: None Neurological Surgical History: Reports: None Musculoskeletal Surgical History: Reports: None Oncologic Surgical History: Reports: None Dermatological Surgical History: Reports: None Social & Family History - Family History Family Medical History: Noncontributory - Caffeine Use Caffeine Use: Reports: Soda Course - Orders/Labs/Meds Orders: Active Orders 24 hr Category Date Time Status Cardiac Monitoring [RC] . DIRECTED Care 05/09/19 04:26 Active EKG Documentation Completion [RC] STAT Care 05/09/19 04:26 Active Oxygen Therapy, ED [RC] ASDIRECTED Care 05/09/19 04:26 Active Pulse Oximetry [RC] ASDIRECTED Care 05/09/19 04:26 Active CBC WITH AUTO DIFF [HEME] Stat Lab 05/09/19 04:30 Results COMPREHENSIVE METABOLIC PN,CMP [CHEM] Stat Lab 05/09/19 04:30 Received INR,PT,PROTHROMBIN TIME [COAG] Stat Lab 05/09/19 04:30 Received TROPONIN I [CHEM] Stat Lab 05/09/19 04:30 Received Heparin Sod,Pork In 0.45% Nacl [Heparin-1/2Ns 25,000 Med 05/09/19 04:30 Active Units/500] 25,000 unit in 500 ml IV TITRATE Sodium Chloride 0.9% [Normal Saline] 1,000 ml Med 05/09/19 04:27 Active IV STAT Sodium Chloride 0.9% [Saline Flush] Med 05/09/19 04:27 Active 10 ml FLUSH ASDIRECTED PRN Sodium Chloride 0.9% [Saline Flush] Med 05/09/19 04:27 Active 2.5 ml FLUSH ASDIRECTED PRN Saline Lock Insert [OM.PC] Stat Oth 05/09/19 04:26 Ordered Medication Orders Sodium Chloride (Normal Saline) 1,000 mls @ 999 mls/hr IV STAT ONE Stop: 05/09/19 05:27 Heparin Sodium/Sodium Chloride (Heparin-1/2ns 25,000 Units/500) 25,000 unit in 500 mls @ 20 mls/hr IV TITRATE SARA; Protocol Sodium Chloride (Saline Flush) 10 ml FLUSH ASDIRECTED PRN PRN Reason: Keep Vein Open Sodium Chloride (Saline Flush) 2.5 ml FLUSH ASDIRECTED PRN PRN Reason: Keep Vein Open Labs: Laboratory Tests 05/09/19 Range/Units 04:30 WBC 21.18 H (4.0-11.0) K/uL RBC 5.40 (4.30-5.90) M/uL Hgb 16.9 H (12.0-16.0) g/dL Hct 47.9 H (36.0-46.0) % MCV 88.7 (80.0-98.0) fL MCH 31.3 (27.0-32.0) pg MCHC 35.3 (31.0-37.0) g/dL RDW Std Deviation 43.9 (28.0-62.0) fl RDW Coeff of Pascale 14 (11.0-15.0) % Plt Count 433 H (150-400) K/uL MPV 9.20 (7.40-12.00) fL Add Manual Diff YES Nucleated RBC % 0.0 /100WBC Nucleated RBCs # 0 K/uL Meds: Medications Generic Name Dose Route Start Last Admin Trade Name Freq PRN Reason Stop Dose Admin Sodium Chloride 1,000 mls @ 999 mls/hr 05/09/19 04:27 Normal Saline IV 05/09/19 05:27 STAT ONE Heparin Sodium/Sodium Chloride 25,000 unit in 500 mls @ 20 mls/hr 05/09/19 04: 30 Heparin-1/2ns 25,000 Units/500 IV TITRATE SARA Protocol Sodium Chloride 10 ml 05/09/19 04:27 Saline Flush FLUSH ASDIRECTED PRN Keep Vein Open Sodium Chloride 2.5 ml 05/09/19 04:27 Saline Flush FLUSH ASDIRECTED PRN Keep Vein Open Discontinued Medications Generic Name Dose Route Start Last Admin Trade Name Freq PRN Reason Stop Dose Admin Aspirin 324 mg 05/09/19 04:27 05/09/19 04:38 Aspirin PO 05/09/19 04:28 324 mg ONETIME ONE Administration Clopidogrel Bisulfate 300 mg 05/09/19 04:27 05/09/19 04:44 Plavix PO 05/09/19 04:28 300 mg ONETIME ONE Administration Fentanyl 25 mcg 05/09/19 04:27 Sublimaze IVPUSH 05/09/19 04:28 ONETIME ONE Heparin Sodium (Porcine) 5,000 units 05/09/19 04:29 05/09/19 04:37 Heparin Sodium IVPUSH 05/09/19 04:30 5,000 units ONETIME ONE Administration Heparin Sodium/Sodium Chloride Confirm 05/09/19 04:38 Heparin-1/2ns 25,000 Units/500 Administered 05/09/19 04:39 Dose 25,000 unit in 500 mls @ as directed IV .STK-MED ONE Departure - Departure Disposition: DC/Tfer to Acute Hospital 02 Clinical Impression: Acute ST elevation myocardial infarction (STEMI) Qualifiers: Involved coronary artery: unspecified coronary artery Qualified Code(s): I21.3 - ST elevation (STEMI) myocardial infarction of unspecified site Referrals: PCP,None [Primary Care Provider] - Forms: ED Department Discharge - My Orders Last 24 Hours: My Active Orders 05/09/19 04:26 Cardiac Monitoring [RC] . DIRECTED EKG Documentation Completion [RC] STAT Oxygen Therapy, ED [RC] ASDIRECTED Pulse Oximetry [RC] ASDIRECTED Saline Lock Insert [OM.PC] Stat 05/09/19 04:27 Sodium Chloride 0.9% [Normal Saline] 1,000 ml IV STAT Sodium Chloride 0.9% [Saline Flush] 10 ml FLUSH ASDIRECTED PRN Sodium Chloride 0.9% [Saline Flush] 2.5 ml FLUSH ASDIRECTED PRN 05/09/19 04:30 CBC WITH AUTO DIFF [HEME] Stat COMPREHENSIVE METABOLIC PN,CMP [CHEM] Stat INR,PT,PROTHROMBIN TIME [COAG] Stat TROPONIN I [CHEM] Stat Heparin Sod,Pork In 0.45% Nacl [Heparin-1/2Ns 25,000 Units/500] 25,000 unit in 500 ml IV TITRATE - Assessment/Plan Last 24 Hours: My Active Orders 05/09/19 04:26 Cardiac Monitoring [RC] . DIRECTED EKG Documentation Completion [RC] STAT Oxygen Therapy, ED [RC] ASDIRECTED Pulse Oximetry [RC] ASDIRECTED Saline Lock Insert [OM.PC] Stat 05/09/19 04:27 Sodium Chloride 0.9% [Normal Saline] 1,000 ml IV STAT Sodium Chloride 0.9% [Saline Flush] 10 ml FLUSH ASDIRECTED PRN Sodium Chloride 0.9% [Saline Flush] 2.5 ml FLUSH ASDIRECTED PRN 05/09/19 04:30 CBC WITH AUTO DIFF [HEME] Stat COMPREHENSIVE METABOLIC PN,CMP [CHEM] Stat INR,PT,PROTHROMBIN TIME [COAG] Stat TROPONIN I [CHEM] Stat Heparin Sod,Pork In 0.45% Nacl [Heparin-1/2Ns 25,000 Units/500] 25,000 unit in 500 ml IV TITRATE <Stephany Santoyo - Last Filed: 05/09/19 04:51> ED HPI GENERAL MEDICAL PROBLEM - History of Present Illness INITIAL COMMENTS - FREE TEXT/NARRATIVE: Dr. Santoyo dictating addendum note as I am the supervising physician on this case. The patient presented with history as above with 4 days of chest pain shortness of breath and she is telling me that the chest pain waxes and wanes. The patient does have a father with cardiac disease and the patient has been seen here back in October for chest pain in the ED. She was referred for a stress test which she underwent a fibroid 25th and did a nuclear medicine myocardial perfusion scan which revealed no evidence of ischemia and an EF of 76 %. The patient currently in the ED is cool and uncomfortable she came in very pale appearing and saying that her chest pain is in the mid part of her chest. She says she feels very short of breath. She tells me also that in the past when she has taken any strong pain medication she gets very short of breath and she is concerned about receiving any those medications here. She denies says she has not had any unusual bleeding. Her EKG upon arrival to the ED did show acute ST segment elevation in the inferior leads as well as V5 and V6 with reciprocal change and as STEMI alert initiated and [facility] was medially contacted by me and case was discussed with Dr. Armenta at 4:29 AM. The patient was given Plavix aspirin and heparin per protocol and an IV fluid bolus for preload. The patient says she did not drink very much fluids yesterday. Her blood pressure systolic has been 100-110. And she is not tachycardic. At this point she is having discomfort but due to the inferior nature of the ST changes will not give nitrates or beta blockers. As our flight team was only 15 minutes away I have notified [facility] that I will not push Danna as the flight time is short. We are currently in the process the packaging her for transport and I have discussed the EKG findings and her care plan with at bedside as well as patient. She is very uncomfortable and is aware that she can't get much for pain if she is declining fentanyl or other pain medications here. I will discuss this with the flight team for transport. Chest x-ray as been done and formal reading will be obtained but I did not see any acute changes and all lab values will be forwarded to [facility] once available. Critical care time excluding procedures:31min ED ROS GENERAL - Review of Systems Review Of Systems: ROS reveals no pertinent complaints other than HPI. ED EXAM, GENERAL - Physical Exam Exam: See Below (See dictation) Departure - Departure Time of Disposition: 04:35 Reason for Transfer *Q: Primary PCI Indicated Condition: Good
[2019-05-09 05:02] LABS: CHLORIDE,CL 100 mmol/L (98-107); SODIUM,NA 136 mmol/L (136-145)
[2019-05-09 06:49] VITALS: BP 110/68
== END 2019-05-09 05:07 ==
LOC: MW.ED 04:21
DX: I21.19 ST elevation (STEMI) myocardial infarction involving other coronary artery of inferior wall (principal); E78.00 Pure hypercholesterolemia, unspecified; I10 Essential (primary) hypertension; F41.9 Anxiety disorder, unspecified; F32.9 Major depressive disorder, single episode, unspecified; E66.9 Obesity, unspecified; Z68.35 Body mass index [BMI] 35.0-35.9, adult; Z88.0 Allergy status to penicillin; Z88.6 Allergy status to analgesic agent; Z88.8 Allergy status to other drugs, medicaments and biological substances; Z79.899 Other long term (current) drug therapy; Z79.82 Long term (current) use of aspirin
CPT/HCPCS: 36415; 71045; 80053; 84484; 85025; 85610; 93005; 96374; 96375; 99285; A9270; J1644; J7040

== ENCOUNTER 2019-05-31 09:40 | Observation (INO) | payer BC ==
[2019-05-31] MEDS ORDERED: Sodium Chloride 0.9% 2.5 ML Syringe FLUSH PRN (09:54)
[2019-05-31] MEDS ORDERED: Sodium Chloride 0.9% 10 ML Syringe FLUSH PRN (09:54)
[2019-05-31] MEDS ORDERED: Aspirin 81 MG Tab.Chew PO ONE (09:56)
--- NOTE | 2019-05-31 10:10 | EDM.PDOC ---
ED HPI GENERAL MEDICAL PROBLEM - General Chief Complaint: Chest Pain Stated Complaint: CHEST PAIN Time Seen by Provider: 05/31/19 09:53 Source of Information: Reports: Patient History Limitations: Reports: No Limitations - History of Present Illness INITIAL COMMENTS - FREE TEXT/NARRATIVE: HISTORY AND PHYSICAL: History of present illness: Patient is a 38-year-old female who presents to the emergency room today with complaints of intermittent chest pain. Patient does have a history of an VA on which she initially presented to our emergency room and was ultimately transferred to [facility] in [place]. Dr Amanda, was her clothing cutter and placed one stent. Today while at cardiac rehabilitation performing a stress test, she started to have some right upper chest pain that radiated across the left chest wall into her breast. She had a sensation of palpitations, shortness of breath, mild nausea and slight diaphoresis. The stress test was stopped and she decided to come to the emergency room for evaluation. Currently her chest pain has subsided, continues to have palpitations which she states is different than what she was experiencing while at cardiac rehabilitation. Since having the stent placed she has had this intermittent right upper chest wall pain that comes and goes. Patient denies any fever, chills, headache, change in vision, syncope or near syncope. Denies any neck pain or stiffness. Denies any abdominal pain, vomiting , diarrhea, constipation or dysuria. Patient has been eating and drinking appropriately. Past medical history of HTN, bi/trigeminy, high cholesterol, and VA with stent placement. Currently takes Plavix daily and an ASA 81mg daily. Review of systems: As per history of present illness and below otherwise all systems reviewed and negative. Past medical history: As per history of present illness and as reviewed below otherwise noncontributory. Surgical history: As per history of present illness and as reviewed below otherwise noncontributory. Social history: See social history for further information Family history: As per history of present illness and as reviewed below otherwise noncontributory. Physical exam: General: Well-developed and well-nourished 38-year-old female. Alert and oriented. Nontoxic appearing and in no acute distress. HEENT: Atraumatic, normocephalic, pupils equal and reactive bilaterally, negative for conjunctival pallor or scleral icterus, mucous membranes moist, TMs normal bilaterally, throat clear, neck supple, nontender, trachea midline. No drooling or trismus noted. No meningeal signs. No hot potato voice noted. Lungs: Clear to auscultation, breath sounds equal bilaterally, chest nontender. Heart: S1S2, tachycardia, regular rate and rhythm without overt murmur Abdomen: Soft, nondistended, nontender. Negative for masses or hepatosplenomegaly. Negative for costovertebral tenderness. Pelvis: Stable nontender. Skin: Intact, warm, dry. No lesions or rashes noted. Extremities: Atraumatic, moves all extremities per self without difficulty or deficits, negative for cords or calf pain. Neurovascular unremarkable. Neuro: Awake, alert, oriented. Cranial nerves II through XII unremarkable. Cerebellum unremarkable. Motor and sensory unremarkable throughout. Exam nonfocal. Notes: Lab work is unremarkable at this time. Patient remains pain free. Vital signs are stable. We did discuss admission versus transfer. She would prefer to stay at our facility but if needed she would go to [place] via private vehicle. Dr. Marx was consulted on this case is agreeable to keeping this patient for further observation. Diagnostics: CBC, CMP, Troponin, EKG, CXR, TSH Therapeutics: Aspirin, Saline lock Impression: Chest pain rule out VA Palpitations Plan: Observation admission to [facility] with telemetry Definitive disposition and diagnosis as appropriate pending reevaluation and review of above. right and left chest radiating through to back Pain Score (Numeric/FACES): 2 - Related Data Allergies Allergy/AdvReac Type Severity Reaction Status Date / Time morphine Allergy Severe Difficulty Verified 05/09/19 04:55 Breathing Penicillins Allergy Severe Rash Verified 05/09/19 04:55 sumatriptan [From Imitrex] Allergy Anaphylactic Verified 05/31/19 09:59 Shock 2 BP Meds Allergy Depression Uncoded 05/09/19 04:55 Home Meds: Home Meds RX: LORazepam [Ativan] 0.5 mg PO BID PRN 06/02/15 [History] RX: Albuterol Sulfate [Proair Hfa] 8.5 gm IH ASDIRECTED 01/17/16 [History] RX: Aspirin 81 mg PO DAILY 04/10/16 [History] RX: Potassium Chloride [Klor-Con M20] 20 meq PO DAILY 01/15/18 [History] Clopidogrel Bisulfate [Plavix] 75 mg PO DAILY 05/31/19 [History] Losartan/Hydrochlorothiazide [Losartan-HCTZ 100-25 MG] 1 tab PO DAILY 05/31/19 [ History] RX: Diltiazem HCl [Cardizem LA] 1 tab PO DAILY 05/31/19 [History] Rosuvastatin Calcium [Crestor] 20 mg PO DAILY 05/31/19 [History] Past Medical History HEENT History: Reports: Impaired Vision Cardiovascular History: Reports: Angina, Arrhythmia, High Cholesterol, Hypertension Other Cardiovascular History: "time when heart does not relax"; stress test X1 year, patient voices "results were okay, some issue with something in my heart" , trigemeny, bigmeney, Respiratory History: Reports: None Gastrointestinal History: Reports: Cholelithiasis Genitourinary History: Reports: None HELMINTHOLOGIST History: Reports: Polycystic Ovaries Other HELMINTHOLOGIST History: CS Musculoskeletal History: Reports: Fracture Neurological History: Reports: None Psychiatric History: Reports: Anxiety, Dementia, Other (See Below) Other Psychiatric History: voices seasonal depression Endocrine/Metabolic History: Reports: Obesity/BMI 30+ Hematologic History: Reports: None Immunologic History: Reports: None Oncologic (Cancer) History: Reports: None Dermatologic History: Reports: None - Infectious Disease History Infectious Disease History: Reports: Chicken Pox - Past Surgical History Head Surgeries/Procedures: Reports: None HEENT Surgical History: Reports: None Cardiovascular Surgical History: Reports: None Respiratory Surgical History: Reports: None GI Surgical History: Reports: Cholecystectomy Female Surgical History: Reports: Cystectomy Endocrine Surgical History: Reports: None Neurological Surgical History: Reports: None Musculoskeletal Surgical History: Reports: None Oncologic Surgical History: Reports: None Dermatological Surgical History: Reports: None Social & Family History - Family History Family Medical History: Noncontributory - Caffeine Use Caffeine Use: Reports: None ED ROS GENERAL - Review of Systems Review Of Systems: ROS reveals no pertinent complaints other than HPI. ED EXAM, GENERAL - Physical Exam Exam: See Below (See dictation) Course - Vital Signs Last Recorded V/S: Last Vital Signs Temp 97.2 F 05/31/19 09:56 Pulse 114 H 05/31/19 09:56 Resp 18 05/31/19 09:56 BP 121/89 05/31/19 09:56 Pulse Ox 98 05/31/19 09:56 - Orders/Labs/Meds Orders: Active Orders 24 hr Category Date Time Status Admission Status [Patient Status] [ADT] Stat ADT 05/31/19 11:03 Ordered EKG 12 Lead [EKG Documentation Completion] [RC] STAT Care 05/31/19 09:47 Active Chest 1V Frontal [CR] Stat Exams 05/31/19 09:54 Taken Sodium Chloride 0.9% [Saline Flush] Med 05/31/19 09:54 Active 10 ml FLUSH ASDIRECTED PRN Sodium Chloride 0.9% [Saline Flush] Med 05/31/19 09:54 Active 2.5 ml FLUSH ASDIRECTED PRN Saline Lock Insert [OM.PC] Stat Oth 05/31/19 09:54 Ordered Medication Orders Sodium Chloride (Saline Flush) 10 ml FLUSH ASDIRECTED PRN PRN Reason: Keep Vein Open Last Admin: 05/31/19 10:23 Dose: 10 ml Sodium Chloride (Saline Flush) 2.5 ml FLUSH ASDIRECTED PRN PRN Reason: Keep Vein Open Last Admin: 05/31/19 10:23 Dose: 2.5 ml Labs: Laboratory Tests 05/31/19 05/31/19 Range/Units 09:55 09:55 WBC 9.54 (4.0-11.0) K/uL RBC 5.20 (4.30-5.90) M/uL Hgb 16.0 (12.0-16.0) g/dL Hct 45.7 (36.0-46.0) % MCV 87.9 (80.0-98.0) fL MCH 30.8 (27.0-32.0) pg MCHC 35.0 (31.0-37.0) g/dL RDW Std Deviation 41.2 (28.0-62.0) fl RDW Coeff of Pascale 13 (11.0-15.0) % Plt Count 342 (150-400) K/uL MPV 9.40 (7.40-12.00) fL Neut % (Auto) 69.8 (48.0-80.0) % Lymph % (Auto) 22.1 (16.0-40.0) % [place] % (Auto) 5.9 (0.0-15.0) % Eos % (Auto) 1.8 (0.0-7.0) % Baso % (Auto) 0.4 (0.0-1.5) % Neut # (Auto) 6.7 H (1.4-5.7) K/uL Lymph # (Auto) 2.1 (0.6-2.4) K/uL [place] # (Auto) 0.6 (0.0-0.8) K/uL Eos # (Auto) 0.2 (0.0-0.7) K/uL Baso # (Auto) 0.0 (0.0-0.1) K/uL Nucleated RBC % 0.0 /100WBC Nucleated RBCs # 0 K/uL Sodium 134 L (136-145) mmol/L Potassium 3.4 L (3.5-5.1) mmol/L Chloride 99 (98-107) mmol/L Carbon Dioxide 21.8 (21.0-32.0) mmol/L BUN 12 (7.0-18.0) mg/dL Creatinine 0.8 (0.6-1.0) mg/dL Est Cr Clr Drug Dosing 73.93 mL/min Estimated GFR (MDRD) > 60.0 ml/min Glucose 233 H (74-106) mg/dL Calcium 9.3 (8.5-10.1) mg/dL Total Bilirubin 0.3 (0.2-1.0) mg/dL AST 27 (15-37) IU/L ALT 36 (14-63) IU/L Alkaline Phosphatase 66 (46-116) U/L Troponin I < 0.050 (0.000-0.056) ng/mL Total Protein 7.6 (6.4-8.2) g/dL Albumin 3.9 (3.4-5.0) g/dL Globulin 3.7 (2.6-4.0) g/dL Albumin/Globulin Ratio 1.1 (0.9-1.6) Meds: Medications Generic Name Dose Route Start Last Admin Trade Name Freq PRN Reason Stop Dose Admin Sodium Chloride 10 ml 05/31/19 09:54 05/31/19 10:23 Saline Flush FLUSH 10 ml ASDIRECTED PRN Administration Keep Vein Open Sodium Chloride 2.5 ml 05/31/19 09:54 05/31/19 10:23 Saline Flush FLUSH 2.5 ml ASDIRECTED PRN Administration Keep Vein Open Discontinued Medications Generic Name Dose Route Start Last Admin Trade Name Freq PRN Reason Stop Dose Admin Aspirin 243 mg 05/31/19 09:56 05/31/19 10:16 Aspirin PO 05/31/19 09:57 243 mg ONETIME ONE Administration Departure - Departure Time of Disposition: 11:09 Disposition: Refer to Observation Clinical Impression: Chest pain, rule out acute myocardial infarction, Palpitations Referrals: Floyd Sahni MD [Primary Care Provider] - Forms: ED Department Discharge - My Orders Last 24 Hours: My Active Orders 05/31/19 09:54 Chest 1V Frontal [CR] Stat Sodium Chloride 0.9% [Saline Flush] 10 ml FLUSH ASDIRECTED PRN Sodium Chloride 0.9% [Saline Flush] 2.5 ml FLUSH ASDIRECTED PRN Saline Lock Insert [OM.PC] Stat 05/31/19 11:03 Admission Status [Patient Status] [ADT] Stat - Assessment/Plan Last 24 Hours: My Active Orders 05/31/19 09:54 Chest 1V Frontal [CR] Stat Sodium Chloride 0.9% [Saline Flush] 10 ml FLUSH ASDIRECTED PRN Sodium Chloride 0.9% [Saline Flush] 2.5 ml FLUSH ASDIRECTED PRN Saline Lock Insert [OM.PC] Stat 05/31/19 11:03 Admission Status [Patient Status] [ADT] Stat
[2019-05-31 10:37] LABS: BLOOD UREA NITROGEN,BUN 12 mg/dL (7.0-18.0); CARBON DIOXIDE,CO2 21.8 mmol/L (21.0-32.0); CHLORIDE,CL 99 mmol/L (98-107); GLUCOSE RANDOM 233 mg/dL (74-106); POTASSIUM,K 3.4 mmol/L (3.5-5.1); SODIUM,NA 134 mmol/L (136-145)
--- NOTE | 2019-05-31 11:05 | CR ---
INDICATION: Chest pain. TECHNIQUE: Chest 1 view COMPARISON: Chest radiograph 04/09/2019. FINDINGS: No significant change since prior exam. No focal consolidation, pleural effusion, or pneumothorax. Normal heart size and pulmonary vascularity. IMPRESSION: Stable exam. No acute cardiopulmonary findings. Dictated by Ramona Shaikh MD @ May 31 2019 11:01AM Signed by Dr. Ramona Shaikh @ May 31 2019 11:03AM
[2019-05-31] MEDS ORDERED: Acetaminophen 325 MG Tab PO PRN (11:26)
[2019-05-31] MEDS ORDERED: Acetaminophen/HYDROcodone 325-5 MG Tab PO PRN (11:26)
[2019-05-31] MEDS ORDERED: Ondansetron 4 MG Tab.DIS PO PRN (11:26)
--- NOTE | 2019-05-31 11:53 | PCM.HP ---
H&P History of Present Illness - General Date of Service: 05/31/19 Admit Problem/Dx: Admission Diagnosis/Problem Admission Diagnosis/Problem Chest pain, rule out acute myocardial infarction - History of Present Illness Initial Comments - Free Text/Narative: 38 y/o female with history of CAD s/p stent placement about 1 month ago presenting to the ER after she was complaining of shortness of breath and palpitations while in cardiac rehab this morning. States that she also felt some chest pain, pressure like. Not similar to the chest pain she experienced one month ago with the STEMI. States she has been taking her medication as indicated which include aspirin, plavix, statin, BP med. No diaphoresis, radiation to neck or left arm. No nausea or vomiting. No abdominal pain, dysuria , diarrhea. No new lower extremity swelling. Denies recent illness. In the ER, troponin was negative. EKG showed sinus tachycardia. No new ST elevations or depressions. Was given full dose aspirin. Currently stating that her symptoms have resolved now. right and left chest radiating through to back Pain Score (Numeric/FACES): 2 - Related Data Allergies/Adverse Reactions: Allergies Allergy/AdvReac Type Severity Reaction Status Date / Time morphine Allergy Severe Difficulty Verified 05/31/19 12:27 Breathing Penicillins Allergy Severe Rash Verified 05/31/19 12:27 sumatriptan [From Imitrex] Allergy Anaphylactic Verified 05/31/19 12:27 Shock 2 BP Meds Allergy Depression Uncoded 05/31/19 12:27 Home Medications: Home Meds LORazepam [Ativan] 0.5 mg PO BID PRN 06/02/15 [History] Albuterol Sulfate [Proair Hfa] 2 puff IH Q4HR PRN 01/17/16 [History] Potassium Chloride [Klor-Con M20] 20 meq PO DAILY 01/15/18 [History] Aspirin [Halfprin] 81 mg PO DAILY 05/31/19 [History] Clopidogrel Bisulfate [Plavix] 75 mg PO DAILY 05/31/19 [History] Lisinopril/Hydrochlorothiazide [Lisinopril-HCTZ 10-12.5 MG] 1 tab PO DAILY 05/31 [History] Metoprolol Succinate [Toprol XL] 25 mg PO BID 05/31/19 [History] [place]-3/DHA/Epa/Fish Oil [[place]-3 Fish Oil 1,000 MG Sfgl] 1 cap PO TID 05/31/19 [History] Rosuvastatin Calcium [Crestor] 20 mg PO DAILY 05/31/19 [History] Past Medical History HEENT History: Reports: Impaired Vision Cardiovascular History: Reports: Angina, Arrhythmia, High Cholesterol, Hypertension Other Cardiovascular History: "time when heart does not relax"; stress test X1 year, patient voices "results were okay, some issue with something in my heart" , trigemeny, bigmeney, Respiratory History: Reports: None Gastrointestinal History: Reports: Cholelithiasis Genitourinary History: Reports: None [employer] 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: Reports: Polycystic Ovaries Other OB/BYN History: CS Musculoskeletal History: Reports: Fracture Neurological History: Reports: None Psychiatric History: Reports: Anxiety, Dementia, Other (See Below) Other Psychiatric History: voices seasonal depression Endocrine/Metabolic History: Reports: Obesity/BMI 30+ Hematologic History: Reports: None Immunologic History: Reports: None Oncologic (Cancer) History: Reports: None Dermatologic History: Reports: None - Infectious Disease History Infectious Disease History: Reports: Chicken Pox - Past Surgical History Head Surgeries/Procedures: Reports: None HEENT Surgical History: Reports: None Cardiovascular Surgical History: Reports: None Respiratory Surgical History: Reports: None GI Surgical History: Reports: Cholecystectomy Female Surgical History: Reports: Cystectomy Endocrine Surgical History: Reports: None Neurological Surgical History: Reports: None Musculoskeletal Surgical History: Reports: None Oncologic Surgical History: Reports: None Dermatological Surgical History: Reports: None Social & Family History - Family History Family Medical History: Noncontributory - Caffeine Use Caffeine Use: Reports: None H&P Review of Systems - Review of Systems: Review Of Systems: ROS reveals no pertinent complaints other than HPI. Exam - Exam Exam: See Below - Vital Signs Vital Signs: Last Vital Signs Temp 36.2 C 05/31/19 09:56 Pulse 104 H 05/31/19 11:31 Resp 19 05/31/19 11:31 BP 126/85 05/31/19 11:31 Pulse Ox 98 05/31/19 09:56 Weight: 97.522 kg - Exam General: Alert, Oriented, Cooperative HEENT: Mucosa Moist & [place] Lungs: Clear to Auscultation, Normal Respiratory Effort. No: Crackles, Wheezing Cardiovascular: Regular Rate, Regular Rhythm. No: Systolic Murmur GI/Abdominal Exam: Normal Bowel Sounds, Soft, Non-Tender, No Distention Extremities: Normal Inspection, No Pedal Edema Skin: Warm, Dry Neuro Extensive - Mental Status: Alert, Oriented x3 - Patient Data Lab Results Last 24 hrs: Laboratory Results - last 24 hr 05/31/19 05/31/19 05/31/19 Range/Units 09:55 09:55 09:55 WBC 9.54 (4.0-11.0) K/uL RBC 5.20 (4.30-5.90) M/uL Hgb 16.0 (12.0-16.0) g/dL Hct 45.7 (36.0-46.0) % MCV 87.9 (80.0-98.0) fL MCH 30.8 (27.0-32.0) pg MCHC 35.0 (31.0-37.0) g/dL RDW Std Deviation 41.2 (28.0-62.0) fl RDW Coeff of Pascale 13 (11.0-15.0) % Plt Count 342 (150-400) K/uL MPV 9.40 (7.40-12.00) fL Neut % (Auto) 69.8 (48.0-80.0) % Lymph % (Auto) 22.1 (16.0-40.0) % Caroline % (Auto) 5.9 (0.0-15.0) % Eos % (Auto) 1.8 (0.0-7.0) % Baso % (Auto) 0.4 (0.0-1.5) % Neut # (Auto) 6.7 H (1.4-5.7) K/uL Lymph # (Auto) 2.1 (0.6-2.4) K/uL Caroline # (Auto) 0.6 (0.0-0.8) K/uL Eos # (Auto) 0.2 (0.0-0.7) K/uL Baso # (Auto) 0.0 (0.0-0.1) K/uL Nucleated RBC % 0.0 /100WBC Nucleated RBCs # 0 K/uL Sodium 134 L (136-145) mmol/L Potassium 3.4 L (3.5-5.1) mmol/L Chloride 99 (98-107) mmol/L Carbon Dioxide 21.8 (21.0-32.0) mmol/L BUN 12 (7.0-18.0) mg/dL Creatinine 0.8 (0.6-1.0) mg/dL Est Cr Clr Drug Dosing 73.93 mL/min Estimated GFR (MDRD) > 60.0 ml/min Glucose 233 H (74-106) mg/dL Calcium 9.3 (8.5-10.1) mg/dL Total Bilirubin 0.3 (0.2-1.0) mg/dL AST 27 (15-37) IU/L ALT 36 (14-63) IU/L Alkaline Phosphatase 66 (46-116) U/L Troponin I < 0.050 (0.000-0.056) ng/mL Total Protein 7.6 (6.4-8.2) g/dL Albumin 3.9 (3.4-5.0) g/dL Globulin 3.7 (2.6-4.0) g/dL Albumin/Globulin Ratio 1.1 (0.9-1.6) TSH 3rd Generation 1.42 (0.36-3.74) uIU/mL Result Diagrams: 05/31/19 09:55 05/31/19 09:55 Problem List Initiated/Reviewed/Updated: Yes Orders Last 24hrs: Active Orders 24 hr Category Date Time Status Admission Status [Patient Status] [ADT] Stat ADT 05/31/19 11:03 Active Antiembolic Devices [RC] PER UNIT ROUTINE Care 05/31/19 11:27 Active Cardiac Monitoring [RC] CONTINUOUS Care 05/31/19 11:26 Active EKG 12 Lead [EKG Documentation Completion] [RC] STAT Care 05/31/19 09:47 Active Oxygen Therapy [RC] PRN Care 05/31/19 11:26 Active Up ad [place] [RC] ASDIRECTED Care 05/31/19 11:26 Active VTE/DVT Education [RC] PER UNIT ROUTINE Care 05/31/19 11:26 Active Vital Signs [RC] Q4H Care 05/31/19 11:26 Active Heart Healthy Diet [DIET] Diet 05/31/19 Lunch Active GLYCOSYLATED HEMOGLOBIN,HGBA1C [CHEM] Routine Lab 05/31/19 11:48 Ordered MAGNESIUM [CHEM] Routine Lab 05/31/19 09:55 Received TROPONIN I [CHEM] Q6H Lab 05/31/19 16:00 Ordered TROPONIN I [CHEM] Q6H Lab 05/31/19 22:00 Ordered Acetaminophen [Tylenol] Med 05/31/19 11:26 Active 650 mg PO Q4H PRN Acetaminophen/HYDROcodone [[place] 325-5 MG] Med 05/31/19 11:26 Active 1 tab PO Q4H PRN Ondansetron [Zofran ODT] Med 05/31/19 11:26 Active 4 mg PO Q4H PRN Sodium Chloride 0.9% [Saline Flush] Med 05/31/19 09:54 Active 10 ml FLUSH ASDIRECTED PRN Sodium Chloride 0.9% [Saline Flush] Med 05/31/19 09:54 Active 2.5 ml FLUSH ASDIRECTED PRN Saline Lock Insert [OM.PC] Stat Oth 05/31/19 09:54 Ordered Sequential Compression Device [OM.PC] Per Unit Routine Oth 05/31/19 11:27 Ordered Resuscitation Status Routine Resus Stat 05/31/19 11:26 Ordered Medication Orders Acetaminophen (Tylenol) 650 mg PO Q4H PRN PRN Reason: Pain (Mild 1-3)/fever Hydrocodone Bitart/Acetaminophen ([place] 325-5 Mg) 1 tab PO Q4H PRN PRN Reason: Pain (moderate 4-6) Ondansetron HCl (Zofran Odt) 4 mg PO Q4H PRN PRN Reason: nausea, able to take PO Sodium Chloride (Saline Flush) 10 ml FLUSH ASDIRECTED PRN PRN Reason: Keep Vein Open Last Admin: 05/31/19 10:23 Dose: 10 ml Sodium Chloride (Saline Flush) 2.5 ml FLUSH ASDIRECTED PRN PRN Reason: Keep Vein Open Last Admin: 05/31/19 10:23 Dose: 2.5 ml Assessment/Plan Comment:: A: 1. Chest pain, ACS rule out 2. PMH CAD s/p stent, DM2, HTN, Dyslipidemia. P: 1. Currently, asymptomtic but patient is high risk due to her cardiac history and risk factors. Will trend troponins. Telemetry, Echo. Will resume her home medications like plavix, aspirin, statin and BP med. dispo: likely dc tomorrow.
[2019-05-31] MEDS ORDERED: Potassium Chloride 20 MEQ Tab.ER PO ONE (12:03)
[2019-05-31 12:21] LABS: HEMOGLOBIN A1C 7.1 % (4.5-6.2)
[2019-05-31] MEDS: Metoprolol Succinate 25 MG Tab.ER PO SCH (20:45)
[2019-05-31] MEDS ORDERED: LORazepam 0.5 MG Tab PO PRN (22:09)
[2019-06-01 06:43] LABS: BLOOD UREA NITROGEN,BUN 12 mg/dL (7.0-18.0); CARBON DIOXIDE,CO2 24.9 mmol/L (21.0-32.0); CHLORIDE,CL 102 mmol/L (98-107); GLUCOSE RANDOM 143 mg/dL (74-106); POTASSIUM,K 4.3 mmol/L (3.5-5.1); SODIUM,NA 136 mmol/L (136-145)
[2019-06-01 08:09] VITALS: BP 111/56; PULSE 70
[2019-06-01] MEDS: Metoprolol Succinate 25 MG Tab.ER PO SCH (08:59)
[2019-06-01] MEDS ORDERED: Clopidogrel 75 MG Tab PO SCH (09:00)
[2019-06-01] MEDS ORDERED: Potassium Chloride 20 MEQ Tab.ER PO SCH (09:00)
[2019-06-01] MEDS ORDERED: Aspirin 81 MG Tab.EC PO SCH (09:00)
[2019-06-01] MEDS ORDERED: Lisinopril/Hydrochlorothiazide 10-12.5 MG Tab PO SCH (09:00)
[2019-06-01] MEDS ORDERED: Rosuvastatin 10 MG Tab PO SCH (09:00)
--- NOTE | 2019-06-01 10:20 | PCM.DCSUM1 ---
<Jonas Olson - Last Filed: 06/01/19 13:56> Discharge Summary - Hospital Course Free Text/Narrative:: 38 y/o female with history of CAD s/p stent placement who presented to the ER complaining of shortness of breath, palpitations. Admitted for ACS rule out. Troponin x3 remained negative. EKG was negative for any ST elevation, depressions. Her symptoms resolved during this hospitalization. Echo was performed which results were pending at time of discharge. She was instructed to follow-up with her PCP. - Discharge Data Discharge Date: 06/01/19 Discharge Disposition: Home, Self-Care 01 Condition: Good - Patient Instructions Diet: Heart Healthy Diet Activity: As Tolerated Notify Provider of: Fever, Increased Pain, Swelling and Redness, Drainage, Nausea and/or Vomiting - Discharge Plan *PRESCRIPTION DRUG MONITORING PROGRAM REVIEWED*: Not Applicable *COPY OF PRESCRIPTION DRUG MONITORING REPORT IN PATIENT TRANG: Not Applicable Home Medications: Home Meds LORazepam [Ativan] 0.5 mg PO BID PRN 06/02/15 [History] Albuterol Sulfate [Proair Hfa] 2 puff IH Q4HR PRN 01/17/16 [History] Potassium Chloride [Klor-Con M20] 20 meq PO DAILY 01/15/18 [History] Aspirin [Halfprin] 81 mg PO DAILY 05/31/19 [History] Clopidogrel Bisulfate [Plavix] 75 mg PO DAILY 05/31/19 [History] Lisinopril/Hydrochlorothiazide [Lisinopril-HCTZ 10-12.5 MG] 1 tab PO DAILY 05/31 [History] Metoprolol Succinate [Toprol XL] 25 mg PO BID 05/31/19 [History] [place]-3/DHA/Epa/Fish Oil [[place]-3 Fish Oil 1,000 MG Sfgl] 1 cap PO TID 05/31/19 [History] Rosuvastatin Calcium [Crestor] 20 mg PO DAILY 05/31/19 [History] Patient Handouts: Nonspecific Chest Pain, [id number] Referrals: Floyd Sahni MD [Primary Care Provider] - 06/03/19 7:45 am - Discharge Summary/Plan Comment DC Time >30 min.: No - Patient Data Vitals - Most Recent: Last Vital Signs Temp 36.1 C 06/01/19 08:00 Pulse 70 06/01/19 08:59 Resp 16 06/01/19 08:00 BP 111/56 L 06/01/19 08:59 Pulse Ox 98 06/01/19 08:00 Weight - Most Recent: 97.522 kg I&O - Last 24 hours: Intake & Output 05/31/19 06/01/19 06/01/19 22:59 06:59 14:59 Intake Total 1476 1340 Output Total 450 1700 Balance 1026 -360 Lab Results - Last 24 hrs: Laboratory Results - last 24 hr 05/31/19 05/31/19 05/31/19 Range/Units 09:55 09:55 09:55 Sodium 134 L (136-145) mmol/L Potassium 3.4 L (3.5-5.1) mmol/L Chloride 99 (98-107) mmol/L Carbon Dioxide 21.8 (21.0-32.0) mmol/L BUN 12 (7.0-18.0) mg/dL Creatinine 0.8 (0.6-1.0) mg/dL Est Cr Clr Drug Dosing 73.93 mL/min Estimated GFR (MDRD) > 60.0 ml/min Glucose 233 H (74-106) mg/dL Hemoglobin A1c (4.5-6.2) % Calcium 9.3 (8.5-10.1) mg/dL Magnesium 1.8 (1.8-2.4) mg/dL Total Bilirubin 0.3 (0.2-1.0) mg/dL AST 27 (15-37) IU/L ALT 36 (14-63) IU/L Alkaline Phosphatase 66 (46-116) U/L Troponin I < 0.050 (0.000-0.056) ng/mL Total Protein 7.6 (6.4-8.2) g/dL Albumin 3.9 (3.4-5.0) g/dL Globulin 3.7 (2.6-4.0) g/dL Albumin/Globulin Ratio 1.1 (0.9-1.6) TSH 3rd Generation 1.42 (0.36-3.74) uIU/mL 05/31/19 05/31/19 05/31/19 Range/Units 09:55 16:02 22:23 Sodium (136-145) mmol/L Potassium (3.5-5.1) mmol/L Chloride (98-107) mmol/L Carbon Dioxide (21.0-32.0) mmol/L BUN (7.0-18.0) mg/dL Creatinine (0.6-1.0) mg/dL Est Cr Clr Drug Dosing mL/min Estimated GFR (MDRD) ml/min Glucose (74-106) mg/dL Hemoglobin A1c 7.1 H (4.5-6.2) % Calcium (8.5-10.1) mg/dL Magnesium (1.8-2.4) mg/dL Total Bilirubin (0.2-1.0) mg/dL AST (15-37) IU/L ALT (14-63) IU/L Alkaline Phosphatase (46-116) U/L Troponin I < 0.050 < 0.050 (0.000-0.056) ng/mL Total Protein (6.4-8.2) g/dL Albumin (3.4-5.0) g/dL Globulin (2.6-4.0) g/dL Albumin/Globulin Ratio (0.9-1.6) TSH 3rd Generation (0.36-3.74) uIU/mL 06/01/19 Range/Units 05:56 Sodium 136 (136-145) mmol/L Potassium 4.3 (3.5-5.1) mmol/L Chloride 102 (98-107) mmol/L Carbon Dioxide 24.9 (21.0-32.0) mmol/L BUN 12 (7.0-18.0) mg/dL Creatinine 0.7 (0.6-1.0) mg/dL Est Cr Clr Drug Dosing 84.49 mL/min Estimated GFR (MDRD) > 60.0 ml/min Glucose 143 H (74-106) mg/dL Hemoglobin A1c (4.5-6.2) % Calcium 8.8 (8.5-10.1) mg/dL Magnesium (1.8-2.4) mg/dL Total Bilirubin 0.3 (0.2-1.0) mg/dL AST 16 (15-37) IU/L ALT 27 (14-63) IU/L Alkaline Phosphatase 60 (46-116) U/L Troponin I (0.000-0.056) ng/mL Total Protein 7.0 (6.4-8.2) g/dL Albumin 3.5 (3.4-5.0) g/dL Globulin 3.5 (2.6-4.0) g/dL Albumin/Globulin Ratio 1.0 (0.9-1.6) TSH 3rd Generation (0.36-3.74) uIU/mL Med Orders - Current: Current Medications Acetaminophen (Tylenol) 650 mg PO Q4H PRN PRN Reason: Pain (Mild 1-3)/fever Hydrocodone Bitart/Acetaminophen ([place] 325-5 Mg) 1 tab PO Q4H PRN PRN Reason: Pain (moderate 4-6) Last Admin: 05/31/19 20:48 Dose: 1 tab Aspirin (Halfprin) 81 mg PO DAILY [facility] Last Admin: 06/01/19 09:00 Dose: 81 mg Clopidogrel Bisulfate (Plavix) 75 mg PO DAILY [facility] Last Admin: 06/01/19 09:00 Dose: 75 mg Lisinopril/HCTZ (Lisinopril-Hctz 10-12.5 Mg) 1 tab PO DAILY [facility] Last Admin: 06/01/19 09:00 Dose: 1 tab Lorazepam (Ativan) 0.5 mg PO BID PRN PRN Reason: Anxiety Last Admin: 05/31/19 22:27 Dose: 0.5 mg Metoprolol Succinate (Toprol Xl) 25 mg PO BID [facility] Last Admin: 06/01/19 08:59 Dose: 25 mg Ondansetron HCl (Zofran Odt) 4 mg PO Q4H PRN PRN Reason: nausea, able to take PO Potassium Chloride (Klor-Con M20) 20 meq PO DAILY [facility] Last Admin: 06/01/19 08:59 Dose: 20 meq Rosuvastatin Calcium (Crestor) 20 mg PO DAILY [facility] Last Admin: 06/01/19 09:00 Dose: 20 mg Sodium Chloride (Saline Flush) 10 ml FLUSH ASDIRECTED PRN PRN Reason: Keep Vein Open Last Admin: 05/31/19 10:23 Dose: 10 ml Sodium Chloride (Saline Flush) 2.5 ml FLUSH ASDIRECTED PRN PRN Reason: Keep Vein Open Last Admin: 05/31/19 10:23 Dose: 2.5 ml Discontinued Medications Aspirin (Aspirin) 243 mg PO ONETIME ONE Stop: 05/31/19 09:57 Last Admin: 05/31/19 10:16 Dose: 243 mg Potassium Chloride (Klor-Con M20) 40 meq PO ONETIME ONE Stop: 05/31/19 12:04 Last Admin: 05/31/19 12:46 Dose: 40 meq <Shabbir Marx - Last Filed: 06/03/19 19:49> - Patient Data Vitals - Most Recent: Last Vital Signs Temp 36.1 C 06/01/19 08:00 Pulse 70 06/01/19 08:59 Resp 16 06/01/19 08:00 BP 111/56 L 06/01/19 08:59 Pulse Ox 98 06/01/19 08:00 Med Orders - Current: Current Medications Discontinued Medications Acetaminophen (Tylenol) 650 mg PO Q4H PRN PRN Reason: Pain (Mild 1-3)/fever Hydrocodone Bitart/Acetaminophen ([place] 325-5 Mg) 1 tab PO Q4H PRN PRN Reason: Pain (moderate 4-6) Last Admin: 05/31/19 20:48 Dose: 1 tab Aspirin (Aspirin) 243 mg PO ONETIME ONE Stop: 05/31/19 09:57 Last Admin: 05/31/19 10:16 Dose: 243 mg Aspirin (Halfprin) 81 mg PO DAILY [facility] Last Admin: 06/01/19 09:00 Dose: 81 mg Clopidogrel Bisulfate (Plavix) 75 mg PO DAILY [facility] Last Admin: 06/01/19 09:00 Dose: 75 mg Lisinopril/HCTZ (Lisinopril-Hctz 10-12.5 Mg) 1 tab PO DAILY [facility] Last Admin: 06/01/19 09:00 Dose: 1 tab Lorazepam (Ativan) 0.5 mg PO BID PRN PRN Reason: Anxiety Last Admin: 05/31/19 22:27 Dose: 0.5 mg Metoprolol Succinate (Toprol Xl) 25 mg PO BID [facility] Last Admin: 06/01/19 08:59 Dose: 25 mg Ondansetron HCl (Zofran Odt) 4 mg PO Q4H PRN PRN Reason: nausea, able to take PO Potassium Chloride (Klor-Con M20) 40 meq PO ONETIME ONE Stop: 05/31/19 12:04 Last Admin: 05/31/19 12:46 Dose: 40 meq Potassium Chloride (Klor-Con M20) 20 meq PO DAILY [facility] Last Admin: 06/01/19 08:59 Dose: 20 meq Rosuvastatin Calcium (Crestor) 20 mg PO DAILY [facility] Last Admin: 06/01/19 09:00 Dose: 20 mg Sodium Chloride (Saline Flush) 10 ml FLUSH ASDIRECTED PRN PRN Reason: Keep Vein Open Last Admin: 05/31/19 10:23 Dose: 10 ml Sodium Chloride (Saline Flush) 2.5 ml FLUSH ASDIRECTED PRN PRN Reason: Keep Vein Open Last Admin: 05/31/19 10:23 Dose: 2.5 ml - Free Text/Narrative Note: I have evaluated the patient. I have discussed findings and treatment plan with resident. I agree with the assessment and plan outlined in the following note.
--- NOTE | 2019-06-05 11:26 | ECHO ---
The echocardiogram report can be seen in this patient's EMR (Electronic Medical Record) in the Reports section. The echocardiogram report has also been scanned into PACS and can be seen there as well. JULIANNA
== END 2019-06-01 11:23 | disposition home or self-care (01) ==
LOC: MW.ED 09:40 → MW.MS 11:03 → UNDOADMOB 11:19 → MW.MS 11:19
PROVIDERS: ADMIT Internal Medicine; ATTEND Internal Medicine
DX: R07.89 Other chest pain (principal); R06.02 Shortness of breath; R00.2 Palpitations; I25.10 Atherosclerotic heart disease of native coronary artery without angina pectoris; I10 Essential (primary) hypertension; I25.2 Old myocardial infarction; E11.9 Type 2 diabetes mellitus without complications; E78.00 Pure hypercholesterolemia, unspecified; Z88.5 Allergy status to narcotic agent; Z88.0 Allergy status to penicillin; Z88.8 Allergy status to other drugs, medicaments and biological substances; Z95.5 Presence of coronary angioplasty implant and graft; Z79.82 Long term (current) use of aspirin; Z79.02 Long term (current) use of antithrombotics/antiplatelets; Z79.899 Other long term (current) drug therapy
CPT/HCPCS: 36415; 71045; 80053; 83036; 83735; 84443; 84484; 85025; 93005; 93306; 99285; A9270; G0378; 99284

== ENCOUNTER 2019-09-18 12:03 | Emergency (ER) | payer BC ==
[2019-09-18] MEDS ORDERED: Sodium Chloride 0.9% 10 ML Syringe FLUSH PRN (12:13)
[2019-09-18] MEDS ORDERED: Sodium Chloride 0.9% 2.5 ML Syringe FLUSH PRN (12:13)
--- NOTE | 2019-09-18 12:23 | EDM.PDOC ---
ED HPI GENERAL MEDICAL PROBLEM - General Chief Complaint: Chest Pain Stated Complaint: SHORTNESS OF BREATHE Time Seen by Provider: 09/18/19 12:14 Source of Information: Reports: Patient History Limitations: Reports: No Limitations - History of Present Illness INITIAL COMMENTS - FREE TEXT/NARRATIVE: HISTORY AND PHYSICAL: History of present illness: Patient is a 39-year-old female who presents to the emergency room with complaints of shortness of breath and chest pressure over the past 2-3 days. Patient states she does have a history of IA and had seen her data conversion developer approximately 6 weeks ago. She states she is concerned of some increase in shortness of breath as she did recently quit smoking approximately 3 weeks ago. She also has complaints of chest pressure which she states is different than pain she is experienced in the past with her cardiac disease. When asked if she uses her nitroglycerin she states that the pressure only lasts a few seconds and then resolves on its own. Patient reports that she has recently met her deductible with her health insurance and is wondering if a nebulizer machine and do an abscess would be beneficial to her with her shortness of breath. She states she has been having to use her rescue inhaler more frequently; but doesn' t get much relief. Patient denies any fever, chills, headache, change in vision, syncope or near syncope. Denies any neck pain, back pain or cough. Denies any abdominal pain, nausea, vomiting, diarrhea, constipation or dysuria. Has not noted any blood in urine or stool. Patient has been eating and drinking appropriately. Review of systems: As per history of present illness and below otherwise all systems reviewed and negative. Past medical history: As per history of present illness and as reviewed below otherwise noncontributory. Surgical history: As per history of present illness and as reviewed below otherwise noncontributory. Social history: See social history for further information Family history: As per history of present illness and as reviewed below otherwise noncontributory. Physical exam: General: Well-developed and well-nourished 39-year-old female. Alert and oriented. Nontoxic appearing and in no acute distress. HEENT: Atraumatic, normocephalic, pupils equal and reactive bilaterally, negative for conjunctival pallor or scleral icterus, mucous membranes moist, TMs normal bilaterally, throat clear, neck supple, nontender, trachea midline. No drooling or trismus noted. No meningeal signs. No hot potato voice noted. Lungs: Clear to auscultation, breath sounds equal bilaterally, chest nontender. Heart: S1S2, regular rate and rhythm without overt murmur Abdomen: Soft, nondistended, nontender. Negative for masses or hepatosplenomegaly. Negative for costovertebral tenderness. Pelvis: Stable nontender. Skin: Intact, warm, dry. No lesions or rashes noted. Extremities: Atraumatic, moves all extremities per self without difficulty or deficits, negative for cords or calf pain. Neurovascular unremarkable. Neuro: Awake, alert, oriented. Cranial nerves II through XII unremarkable. Cerebellum unremarkable. Motor and sensory unremarkable throughout. Exam nonfocal. Notes: She is agreeable to lab work and remaining diagnostics to rule out acute IA EKG shows sinus rhythm with a rate of 74, no significant findings. Chest x-ray is unremarkable. Patient currently has no chest pain. She says she does feel improvement after the DuoNeb. States she is asymptomatic at this time. Patient potassium level is low. She states she has skipped her oral potassium for probably 1 week. I did offer her admission for chest pain and for the hypokalemia (IV potassium replacement), she declines. She is aware and accepts the risks that we discussed of being discharged to home. I instructed her to restart her potassium at 40 mEq BID and follow up with her primary care in the next 1-2 days. We discussed signs and symptoms that would prompt her to return to the emergency room. Supportive care measures were reviewed and discussed. Denies any further questions or concerns at this time. Diagnostics: CBC, CMP, Troponin, EKG, CXR Therapeutics: Saline lock, Duo Neb, K-dur Prescription: Duo Neb Impression: Dyspnea Hypokalemia Chest pain, resolved Medication noncompliance Plan: 1. Please take your potassium replacement that you have at home, you may take Potassium 40 meQ twice daily. 2. Follow-up with your primary care provider as we discussed for reevaluation and management. 3. Return to the ED as needed and as discussed. Definitive disposition and diagnosis as appropriate pending reevaluation and review of above. Duration: Day(s): chest Pain Score (Numeric/FACES): 2 - Related Data Allergies Allergy/AdvReac Type Severity Reaction Status Date / Time morphine Allergy Severe Difficulty Verified 05/31/19 12:27 Breathing Penicillins Allergy Severe Rash Verified 05/31/19 12:27 amoxicillin Allergy Shortness Verified 09/18/19 12:10 of Breath sumatriptan [From Imitrex] Allergy Anaphylactic Verified 05/31/19 12:27 Shock 2 BP Meds Allergy Confusion Uncoded 09/18/19 12:10 Home Meds: Home Meds LORazepam [Ativan] 0.5 mg PO BID PRN 06/02/15 [History] Albuterol Sulfate [Proair Hfa] 2 puff IH Q4HR PRN 01/17/16 [History] Potassium Chloride [Klor-Con M20] 20 meq PO DAILY 01/15/18 [History] Aspirin [Halfprin] 81 mg PO DAILY 05/31/19 [History] Clopidogrel Bisulfate [Plavix] 75 mg PO DAILY 05/31/19 [History] Lisinopril/Hydrochlorothiazide [Lisinopril-HCTZ 10-12.5 MG] 1 tab PO DAILY 05/31 [History] Metoprolol Succinate [Toprol XL] 25 mg PO BID 05/31/19 [History] [place]-3/DHA/Epa/Fish Oil [[place]-3 Fish Oil 1,000 MG Sfgl] 1 cap PO TID 05/31/19 [History] Rosuvastatin Calcium [Crestor] 20 mg PO DAILY 05/31/19 [History] Albuterol/Ipratropium [DuoNeb 3.0-0.5 MG/3 ML] 1 ampule INH Q4HR PRN #1 box [Rx] Past Medical History HEENT History: Reports: Impaired Vision Cardiovascular History: Reports: Angina, Arrhythmia, High Cholesterol, Hypertension, IA, Stents Other Cardiovascular History: "time when heart does not relax"; stress test X1 year, patient voices "results were okay, some issue with something in my heart" , mimi ferris, Respiratory History: Reports: None Other Respiratory History: long time smoker, quit 3 weeks ago Gastrointestinal History: Reports: Cholelithiasis Genitourinary History: Reports: None 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: Reports: Polycystic Ovaries Other 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: CS Musculoskeletal History: Reports: Fracture Neurological History: Reports: None Psychiatric History: Reports: Anxiety, Dementia, Other (See Below) Other Psychiatric History: voices seasonal depression Endocrine/Metabolic History: Reports: Obesity/BMI 30+ Hematologic History: Reports: None Immunologic History: Reports: None Oncologic (Cancer) History: Reports: None Dermatologic History: Reports: None - Infectious Disease History Infectious Disease History: Reports: Chicken Pox Other Infectious Disease History: 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, completed tx - Past Surgical History Head Surgeries/Procedures: Reports: None HEENT Surgical History: Reports: None Cardiovascular Surgical History: Reports: None GI Surgical History: Reports: Cholecystectomy Female Surgical History: Reports: Cystectomy Endocrine Surgical History: Reports: None Neurological Surgical History: Reports: None Musculoskeletal Surgical History: Reports: None Oncologic Surgical History: Reports: None Dermatological Surgical History: Reports: None Social & Family History - Family History Family Medical History: Noncontributory - Tobacco Use Smoking Status *Q: Former Smoker Used Tobacco, but Quit: Yes Month/Year Tobacco Last Used: 04/2019 - Caffeine Use Caffeine Use: Reports: None - Recreational Drug Use Recreational Drug Use: No ED ROS GENERAL - Review of Systems Review Of Systems: Comprehensive ROS is negative, except as noted in HPI. ED EXAM, GENERAL - Physical Exam Exam: See Below (See dictation) Course - Vital Signs Last Recorded V/S: Last Vital Signs Temp 96.8 F 09/18/19 12:11 Pulse 80 09/18/19 12:11 Resp 18 09/18/19 12:11 BP 116/61 09/18/19 12:11 Pulse Ox 98 09/18/19 12:11 - Orders/Labs/Meds Orders: Active Orders 24 hr Category Date Time Status EKG Documentation Completion [RC] STAT Care 09/18/19 12:13 Active RT Aerosol Therapy [RC] ASDIRECTED Care 09/18/19 12:34 Active Sodium Chloride 0.9% [Saline Flush] Med 09/18/19 12:13 Active 10 ml FLUSH ASDIRECTED PRN Sodium Chloride 0.9% [Saline Flush] Med 09/18/19 12:13 Active 2.5 ml FLUSH ASDIRECTED PRN Saline Lock Insert [OM.PC] Stat Oth 09/18/19 12:13 Ordered Medication Orders Sodium Chloride (Saline Flush) 10 ml FLUSH ASDIRECTED PRN PRN Reason: Keep Vein Open Sodium Chloride (Saline Flush) 2.5 ml FLUSH ASDIRECTED PRN PRN Reason: Keep Vein Open Labs: Laboratory Tests 09/18/19 09/18/19 Range/Units 12:05 12:05 WBC 8.39 (4.0-11.0) K/uL RBC 5.07 (4.30-5.90) M/uL Hgb 15.5 (12.0-16.0) g/dL Hct 43.8 (36.0-46.0) % MCV 86.4 (80.0-98.0) fL MCH 30.6 (27.0-32.0) pg MCHC 35.4 (31.0-37.0) g/dL RDW Std Deviation 40.9 (28.0-62.0) fl RDW Coeff of Pascale 13 (11.0-15.0) % Plt Count 332 (150-400) K/uL MPV 9.10 (7.40-12.00) fL Neut % (Auto) 51.9 (48.0-80.0) % Lymph % (Auto) 38.9 (16.0-40.0) % [place] % (Auto) 6.6 (0.0-15.0) % Eos % (Auto) 2.1 (0.0-7.0) % Baso % (Auto) 0.5 (0.0-1.5) % Neut # (Auto) 4.4 (1.4-5.7) K/uL Lymph # (Auto) 3.3 H (0.6-2.4) K/uL [place] # (Auto) 0.6 (0.0-0.8) K/uL Eos # (Auto) 0.2 (0.0-0.7) K/uL Baso # (Auto) 0.0 (0.0-0.1) K/uL Nucleated RBC % 0.0 /100WBC Nucleated RBCs # 0 K/uL Sodium 137 (136-145) mmol/L Potassium 3.0 L (3.5-5.1) mmol/L Chloride 100 (98-107) mmol/L Carbon Dioxide 30.0 (21.0-32.0) mmol/L BUN 3 L (7.0-18.0) mg/dL Creatinine 0.8 (0.6-1.0) mg/dL Est Cr Clr Drug Dosing 73.19 mL/min Estimated GFR (MDRD) > 60.0 ml/min Glucose 126 H (74-106) mg/dL Calcium 8.8 (8.5-10.1) mg/dL Total Bilirubin 0.3 (0.2-1.0) mg/dL AST 30 (15-37) IU/L ALT 30 (14-63) IU/L Alkaline Phosphatase 56 (46-116) U/L Troponin I < 0.050 (0.000-0.056) ng/mL Total Protein 7.7 (6.4-8.2) g/dL Albumin 4.1 (3.4-5.0) g/dL Globulin 3.6 (2.6-4.0) g/dL Albumin/Globulin Ratio 1.1 (0.9-1.6) Meds: Medications Generic Name Dose Route Start Last Admin Trade Name Freq PRN Reason Stop Dose Admin Sodium Chloride 10 ml 09/18/19 12:13 Saline Flush FLUSH ASDIRECTED PRN Keep Vein Open Sodium Chloride 2.5 ml 09/18/19 12:13 Saline Flush FLUSH ASDIRECTED PRN Keep Vein Open Discontinued Medications Generic Name Dose Route Start Last Admin Trade Name Freq PRN Reason Stop Dose Admin Albuterol/Ipratropium 3 ml 09/18/19 12:33 09/18/19 12:53 Duoneb 3.0-0.5 Mg/3 Ml NEB 09/18/19 12:34 3 ml ONETIME ONE Administration Potassium Chloride 40 meq 09/18/19 13:38 Klor-Con M20 PO 09/18/19 13:39 ONETIME ONE Departure - Departure Time of Disposition: 13:42 Disposition: Home, Self-Care 01 Clinical Impression: Hypokalemia, Noncompliance with medication regimen, Dyspnea Chest pain Qualifiers: Chest pain type: other chest pain Qualified Code(s): R07.89 - Other chest pain Prescriptions: Albuterol/Ipratropium [DuoNeb 3.0-0.5 MG/3 ML] 1 ampule INH Q4HR PRN #1 box PRN Reason: Dyspnea Instructions: Hypokalemia, Chest Wall Pain, [id number] Referrals: PCP,Unobtain [Primary Care Provider] - Forms: ED Department Discharge Additional Instructions: The following information is given to patients seen in the emergency department who are being discharged to home. This information is to outline your options for follow-up care. We provide all patients seen in our emergency department with a follow-up referral. The need for follow-up, as well as the timing and circumstances, are variable depending upon the specifics of your emergency department visit. If you don't have a primary care physician on staff, we will provide you with a referral. We always advise you to contact your personal physician following an emergency department visit to inform them of the circumstance of the visit and for follow-up with them and/or the need for any referrals to a consulting specialist. The emergency department will also refer you to a specialist when appropriate. This referral assures that you have the opportunity for follow-up care with a specialist. All of these measure are taken in an effort to provide you with optimal care, which includes your follow-up. Under all circumstances we always encourage you to contact your private physician who remains a resource for coordinating your care. When calling for follow-up care, please make the office aware that this follow-up is from your recent emergency room visit. If for any reason you are refused follow-up, please contact the [facility] Emergency Department at and asked to speak to the emergency department charge nurse. [facility] [address] [place] [id number] [place] [address] 1. Please take your potassium replacement that you have at home, you may take Potassium 40 meQ twice daily x 5 days (this NEEDS to be rechecked). 2. Follow-up with your primary care provider as we discussed for reevaluation and management. 3. Return to the ED as needed and as discussed. - My Orders Last 24 Hours: My Active Orders 09/18/19 12:13 EKG Documentation Completion [RC] STAT Sodium Chloride 0.9% [Saline Flush] 10 ml FLUSH ASDIRECTED PRN Sodium Chloride 0.9% [Saline Flush] 2.5 ml FLUSH ASDIRECTED PRN Saline Lock Insert [OM.PC] Stat 09/18/19 12:34 RT Aerosol Therapy [RC] ASDIRECTED - Assessment/Plan Last 24 Hours: My Active Orders 09/18/19 12:13 EKG Documentation Completion [RC] STAT Sodium Chloride 0.9% [Saline Flush] 10 ml FLUSH ASDIRECTED PRN Sodium Chloride 0.9% [Saline Flush] 2.5 ml FLUSH ASDIRECTED PRN Saline Lock Insert [OM.PC] Stat 09/18/19 12:34 RT Aerosol Therapy [RC] ASDIRECTED
[2019-09-18] MEDS ORDERED: Albuterol/Ipratropium 3.0-0.5 MG/3 ML Neb Soln NEB ONE (12:33)
[2019-09-18 12:49] LABS: BLOOD UREA NITROGEN,BUN 3 mg/dL (7.0-18.0); CHLORIDE,CL 100 mmol/L (98-107); GLUCOSE RANDOM 126 mg/dL (74-106); SODIUM,NA 137 mmol/L (136-145)
--- NOTE | 2019-09-18 12:51 | CR ---
EXAM DATE: 09/18/19 PATIENT'S AGE: 39 Chest: Portable view of the chest was obtained. Comparison: Previous chest x-ray of 05/31/19. Heart size and mediastinum are within normal limits for portable technique. Lungs are clear. Bony structures are grossly intact. Impression: 1. Nothing acute is seen on one view chest x-ray. Diagnostic code #1 Report Signed by Proxy. JULIANNA
[2019-09-18] MEDS ORDERED: Potassium Chloride 20 MEQ Tab.ER PO ONE (13:38)
[2019-09-18 14:00] VITALS: BP 107/61; PULSE 83
== END 2019-09-18 14:07 | disposition home or self-care (01) ==
LOC: MW.ED 12:03
DX: R07.89 Other chest pain (principal); E87.6 Hypokalemia; Z91.14 Patient's other noncompliance with medication regimen; I10 Essential (primary) hypertension; I25.2 Old myocardial infarction; E78.00 Pure hypercholesterolemia, unspecified; F41.9 Anxiety disorder, unspecified; F32.9 Major depressive disorder, single episode, unspecified; E66.9 Obesity, unspecified; Z68.38 Body mass index [BMI] 38.0-38.9, adult; Z87.891 Personal history of nicotine dependence; Z88.5 Allergy status to narcotic agent; Z88.8 Allergy status to other drugs, medicaments and biological substances; Z79.82 Long term (current) use of aspirin; Z79.02 Long term (current) use of antithrombotics/antiplatelets; Z79.899 Other long term (current) drug therapy
CPT/HCPCS: 36415; 71045; 80053; 84484; 85025; 93005; 94640; 99285; A9270; J7620-GY

== ENCOUNTER 2020-03-18 13:44 | Emergency (ER) | payer BC ==
[2020-03-18 15:29] LABS: BLOOD UREA NITROGEN,BUN 8 mg/dL (7.0-18.0); CARBON DIOXIDE,CO2 24.4 mmol/L (21.0-32.0); CHLORIDE,CL 99 mmol/L (98-107); GLUCOSE RANDOM 157 mg/dL (74-106); POTASSIUM,K 3.7 mmol/L (3.5-5.1); SODIUM,NA 134 mmol/L (136-145)
--- NOTE | 2020-03-18 16:00 | CR ---
Chest: 2 views of the chest were obtained. Comparison: Prior chest x-ray of 09/18/19. Heart size and mediastinum are normal. Lungs show no acute parenchymal change. Bony structures appear within normal limits for the patient's age. Impression: 1. Nothing acute is appreciated on 2 view chest x-ray. Diagnostic code #1 This report was dictated in MDT
--- NOTE | 2020-03-18 17:02 | EDM.PDOC ---
ED [facility] GENERAL MEDICAL PROBLEM - General Chief Complaint: Chest Pain Stated Complaint: CHEST PAIN Time Seen by Provider: 03/18/20 17:00 Source of Information: Reports: Patient History Limitations: Reports: Intoxication - History of Present Illness INITIAL COMMENTS - FREE TEXT/NARRATIVE: Patient is a 39-year-old female with a history of diabetes and coronary artery disease presenting with a chief complaint of chest pain. Patient states the chest pain is dull and located in the middle of her chest. Pain sometimes radiates to the left side. Patient reports some associated shortness of breath with this. Duration of pain has been for the past 1 to 2 weeks. Patient states symptoms have fluctuated in intensity and are currently rather low in intensity. Patient states she has spoken with her property field adjuster and arranged an appointment on Monday but was having pain again today so decided to come into the emergency department. Patient states that the pain occurs with both rest and exertion and does not seem to have a particular trigger. Pmhx: CAD, diabetes Pshx: None Family Hx: noncontributory Smoking history? no Etoh use? none Drug use? none In addition to that documented in the HPI above, the additional ROS was obtained : Constitutional: Denies fevers or chills Eyes: Denies vision changes ENMT: Denies sore throat CV: Per HPI Resp: Denies SOB GI: Denies vomiting or diarrhea : Denies painful urination MSK: Denies recent trauma Skin: Denies new rashes Neuro: Denies new numbness or tingling or weakness Endocrine: Denies unexpected weight loss Heme: Denies bleeding disorders I have reviewed the triage vital signs Const: Well nourished, well developed, appears stated age Eyes: PERRL, no conjunctival injection HENT: NCAT, Neck supple without meningismus CV: RRR, Warm, well-perfused extremities RESP: CTAB, Unlabored respiratory effort GI: soft, non-tender, non-distended, no masses MSK: No gross deformities appreciated. No calf pain or or tenderness elicited on exam. No swelling of the lower extremities. Skin: Warm, dry. 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 Sensation and motor function of extremities grossly intact. Psych: Appropriate mood and affect Assessment and plan: Patient is a 39-year-old female presenting with chief complaint of chest pain. Patient had unremarkable ER course. Patient serial EKGs and troponins were within normal limits. Differential diagnosis considered including myocardial infarction, pulmonary embolism, aortic dissection. All of these seem less likely. Patient is PERC negative and the serial troponins and EKGs being unremarkable and [place] is much less likely. Aortic dissection also seems low likelihood based on clinical presentation. Patient has a heart score of 3 and appropriate follow-up with cardiology on Monday. Patient will be discharged with good return precautions. All questions addressed and answered. Patient agrees with plan. chest Pain Score (Numeric/FACES): 4 - Related Data Allergies Allergy/AdvReac Type Severity Reaction Status Date / Time morphine Allergy Severe Difficulty Verified 03/18/20 14:35 Breathing Penicillins Allergy Severe Rash Verified 03/18/20 14:35 amoxicillin Allergy Shortness Verified 03/18/20 14:35 of Breath sumatriptan [From Imitrex] Allergy Anaphylactic Verified 03/18/20 14:35 Shock 2 BP Meds Allergy Confusion Uncoded 03/18/20 14:35 Home Meds: Home Meds LORazepam [Ativan] 0.5 mg PO BID PRN 06/02/15 [History] Albuterol Sulfate [Proair Hfa] 2 puff IH Q4HR PRN 01/17/16 [History] Potassium Chloride [Klor-Con M20] 20 meq PO DAILY 01/15/18 [History] Aspirin [Halfprin] 81 mg PO DAILY 05/31/19 [History] Clopidogrel Bisulfate [Plavix] 75 mg PO DAILY 05/31/19 [History] Lisinopril/Hydrochlorothiazide [Lisinopril-HCTZ 10-12.5 MG] 1 tab PO DAILY 05/31 [History] Metoprolol Succinate [Toprol XL] 25 mg PO BID 05/31/19 [History] [place]-3/DHA/Epa/Fish Oil [[place]-3 Fish Oil 1,000 MG Sfgl] 1 cap PO TID 05/31/19 [History] Rosuvastatin Calcium [Crestor] 20 mg PO DAILY 05/31/19 [History] Albuterol/Ipratropium [DuoNeb 3.0-0.5 MG/3 ML] 1 ampule INH Q4HR PRN #1 box [Rx] Past Medical History HEENT History: Reports: Impaired Vision Cardiovascular History: Reports: Angina, Arrhythmia, High Cholesterol, Hypertension, [place], Stents Other Cardiovascular History: Heart attack in April 2019, narinder ferris Respiratory History: Reports: None Other Respiratory History: long time smoker, quit 3 weeks ago Gastrointestinal History: Reports: Cholelithiasis Genitourinary History: Reports: None SPECIAL EFFECTS TECHNICIAN History: Reports: Polycystic Ovaries Other SPECIAL EFFECTS TECHNICIAN History: CS Musculoskeletal History: Reports: Fracture Neurological History: Reports: None Psychiatric History: Reports: Anxiety, Other (See Below) Other Psychiatric History: voices seasonal depression Endocrine/Metabolic History: Reports: Diabetes, Type II, Obesity/BMI 30+ Hematologic History: Reports: None Immunologic History: Reports: None Oncologic (Cancer) History: Reports: None Dermatologic History: Reports: None - Infectious Disease History Infectious Disease History: Reports: Chicken Pox Other Infectious Disease History: 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, completed tx - Past Surgical History Head Surgeries/Procedures: Reports: None HEENT Surgical History: Reports: None Cardiovascular Surgical History: Reports: Coronary Artery Stent GI Surgical History: Reports: Cholecystectomy Female Surgical History: Reports: Section, Cystectomy Endocrine Surgical History: Reports: None Neurological Surgical History: Reports: None Musculoskeletal Surgical History: Reports: None Oncologic Surgical History: Reports: None Dermatological Surgical History: Reports: None Social & Family History - Family History Family Medical History: Noncontributory - Tobacco Use Smoking Status *Q: Current Every Day Smoker Years of Tobacco use: 30 Packs/Tins Daily: 0.8 - Caffeine Use Caffeine Use: Reports: Soda, Tea - Recreational Drug Use Recreational Drug Use: No ED ROS GENERAL - Review of Systems Review Of Systems: See Below ED EXAM, GENERAL - Physical Exam Exam: See Below Course - Vital Signs Last Recorded V/S: Last Vital Signs Temp 36.1 C 03/18/20 14:15 Pulse 71 03/18/20 15:15 Resp 18 03/18/20 15:15 BP 111/79 03/18/20 15:15 Pulse Ox 95 03/18/20 15:15 - Orders/Labs/Meds Orders: Active Orders 24 hr Category Date Time Status Blood Glucose Check, Bedside [RC] ONETIME Care 03/18/20 14:34 Active EKG 12 Lead [EKG Documentation Completion] [RC] ROUTINE Care 03/18/20 13:52 Active EKG 12 Lead [EKG Documentation Completion] [RC] STAT Care 03/18/20 16:33 Active Labs: Laboratory Tests 03/18/20 03/18/20 03/18/20 Range/Units 14:27 14:38 14:50 WBC 9.35 (4.0-11.0) K/uL RBC 4.90 (4.30-5.90) M/uL Hgb 14.9 (12.0-16.0) g/dL Hct 43.0 (36.0-46.0) % MCV 87.8 (80.0-98.0) fL MCH 30.4 (27.0-32.0) pg MCHC 34.7 (31.0-37.0) g/dL RDW Std Deviation 42.2 (28.0-62.0) fl RDW Coeff of Pascale 13 (11.0-15.0) % Plt Count 312 (150-400) K/uL MPV 9.30 (7.40-12.00) fL Neut % (Auto) 57.8 (48.0-80.0) % Lymph % (Auto) 33.3 (16.0-40.0) % [place] % (Auto) 6.5 (0.0-15.0) % Eos % (Auto) 2.0 (0.0-7.0) % Baso % (Auto) 0.4 (0.0-1.5) % Neut # (Auto) 5.4 (1.4-5.7) K/uL Lymph # (Auto) 3.1 H (0.6-2.4) K/uL [place] # (Auto) 0.6 (0.0-0.8) K/uL Eos # (Auto) 0.2 (0.0-0.7) K/uL Baso # (Auto) 0.0 (0.0-0.1) K/uL Nucleated RBC % 0.0 /100WBC Nucleated RBCs # 0 K/uL Sodium 134 L (136-145) mmol/L Potassium 3.7 (3.5-5.1) mmol/L Chloride 99 (98-107) mmol/L Carbon Dioxide 24.4 (21.0-32.0) mmol/L BUN 8 (7.0-18.0) mg/dL Creatinine 0.7 (0.6-1.0) mg/dL Est Cr Clr Drug Dosing 83.65 mL/min Estimated GFR (MDRD) > 60.0 ml/min Glucose 157 H (74-106) mg/dL POC Glucose 135 H (60-110) mg/dL Calcium 9.0 (8.5-10.1) mg/dL Troponin I < 0.050 (0.000-0.056) ng/mL 03/18/20 Range/Units 16:44 WBC (4.0-11.0) K/uL RBC (4.30-5.90) M/uL Hgb (12.0-16.0) g/dL Hct (36.0-46.0) % MCV (80.0-98.0) fL MCH (27.0-32.0) pg MCHC (31.0-37.0) g/dL RDW Std Deviation (28.0-62.0) fl RDW Coeff of Pascale (11.0-15.0) % Plt Count (150-400) K/uL MPV (7.40-12.00) fL Neut % (Auto) (48.0-80.0) % Lymph % (Auto) (16.0-40.0) % [place] % (Auto) (0.0-15.0) % Eos % (Auto) (0.0-7.0) % Baso % (Auto) (0.0-1.5) % Neut # (Auto) (1.4-5.7) K/uL Lymph # (Auto) (0.6-2.4) K/uL [place] # (Auto) (0.0-0.8) K/uL Eos # (Auto) (0.0-0.7) K/uL Baso # (Auto) (0.0-0.1) K/uL Nucleated RBC % /100WBC Nucleated RBCs # K/uL Sodium (136-145) mmol/L Potassium (3.5-5.1) mmol/L Chloride (98-107) mmol/L Carbon Dioxide (21.0-32.0) mmol/L BUN (7.0-18.0) mg/dL Creatinine (0.6-1.0) mg/dL Est Cr Clr Drug Dosing mL/min Estimated GFR (MDRD) ml/min Glucose (74-106) mg/dL POC Glucose (60-110) mg/dL Calcium (8.5-10.1) mg/dL Troponin I < 0.050 (0.000-0.056) ng/mL Departure - Departure Time of Disposition: 17:34 Disposition: Home, Self-Care 01 Clinical Impression: Atypical chest pain Instructions: Angina, [id number] Referrals: Floyd Sahni MD [Primary Care Provider] - Forms: ED Department Discharge Additional Instructions: The following information is given to patients seen in the emergency department who are being discharged to home. This information is to outline your options for follow-up care. We provide all patients seen in our emergency department with a follow-up referral. The need for follow-up, as well as the timing and circumstances, are variable depending upon the specifics of your emergency department visit. If you don't have a primary care physician on staff, we will provide you with a referral. We always advise you to contact your personal physician following an emergency department visit to inform them of the circumstance of the visit and for follow-up with them and/or the need for any referrals to a consulting specialist. The emergency department will also refer you to a specialist when appropriate. This referral assures that you have the opportunity for follow-up care with a specialist. All of these measure are taken in an effort to provide you with optimal care, which includes your follow-up. Under all circumstances we always encourage you to contact your private physician who remains a resource for coordinating your care. When calling for follow-up care, please make the office aware that this follow-up is from your recent emergency room visit. If for any reason you are refused follow-up, please contact the [facility] Emergency Department at and asked to speak to the emergency department charge nurse. Please follow-up with your property field adjuster on Monday. Return to the emergency department immediately for worsening of chest pain, shortness of breath or any other concerns. Sepsis Event Note - Evaluation Sepsis Screening Result: No Definite Risk - Focused Exam Vital Signs: Vital Signs Temp Pulse Resp BP Pulse Ox 03/18/20 15:15 71 18 111/79 95 03/18/20 14:30 74 18 141/91 H 95 03/18/20 14:15 36.1 C 67 18 132/76 97 Date Exam was Performed: 03/18/20 Time Exam was Performed: 17:32 - My Orders Last 24 Hours: My Active Orders 03/18/20 13:52 EKG 12 Lead [EKG Documentation Completion] [RC] ROUTINE 03/18/20 14:34 Blood Glucose Check, Bedside [RC] ONETIME 03/18/20 16:33 EKG 12 Lead [EKG Documentation Completion] [RC] STAT - Assessment/Plan Last 24 Hours: My Active Orders 03/18/20 13:52 EKG 12 Lead [EKG Documentation Completion] [RC] ROUTINE 03/18/20 14:34 Blood Glucose Check, Bedside [RC] ONETIME 03/18/20 16:33 EKG 12 Lead [EKG Documentation Completion] [RC] STAT
[2020-03-18 18:43] VITALS: BP 117/85; PULSE 66
== END 2020-03-18 17:46 | disposition home or self-care (01) ==
LOC: MW.ED 13:44
DX: R07.89 Other chest pain (principal); E78.00 Pure hypercholesterolemia, unspecified; I10 Essential (primary) hypertension; I25.2 Old myocardial infarction; E11.9 Type 2 diabetes mellitus without complications; F17.210 Nicotine dependence, cigarettes, uncomplicated; E66.9 Obesity, unspecified; Z68.38 Body mass index [BMI] 38.0-38.9, adult; Z88.5 Allergy status to narcotic agent; Z88.0 Allergy status to penicillin; Z88.8 Allergy status to other drugs, medicaments and biological substances; Z79.82 Long term (current) use of aspirin; Z79.02 Long term (current) use of antithrombotics/antiplatelets; Z79.899 Other long term (current) drug therapy; Z88.1 Allergy status to other antibiotic agents
CPT/HCPCS: 36415; 71046; 71046-26; 80048; 82962; 84484; 85025; 93005; 99283; 99285-25

== ENCOUNTER 2021-01-08 15:01 | Emergency (ER) | payer BC ==
[2021-01-08] MEDS ORDERED: Sodium Chloride 0.9% 2.5 ML Syringe FLUSH PRN (15:03)
[2021-01-08] MEDS ORDERED: Sodium Chloride 0.9% 10 ML Syringe FLUSH PRN (15:03)
--- NOTE | 2021-01-08 15:11 | EDM.PDOC ---
ED HPI GENERAL MEDICAL PROBLEM - General Chief Complaint: General Stated Complaint: Chest Pain Time Seen by Provider: 01/08/21 15:03 - History of Present Illness INITIAL COMMENTS - FREE TEXT/NARRATIVE: History of present illness: [] Patient has discomfort in the left chest for 2 weeks. It is tender in the area where she feels a deformity of her sternum. This is something she just noticed but she says may have been present since she had coronary artery bypass in March of last year. The patient has intermittent nausea of breath as well. Patient feels lightheaded now. Patient says her blood pressure is low and she is lightheaded when her magnesium and potassium have been low in the past. She presented to the clinic and there they saw her and said she had chest pain and hypotension with a 98 systolic blood pressure so they sent her to us of the emergency. COVID-19 episode in August. She had vaccines in November. The second dose was about the time she started having shortness of breath and trouble and she decided she attributed the symptoms originally to the second dose of vaccine itself. She had a negative test 4 days ago for COVID-19. Review of systems: As per history of present illness and below otherwise all systems reviewed and negative. Past medical history: As per history of present illness and as reviewed below otherwise noncontributory. Surgical history: As per history of present illness and as reviewed below otherwise noncontributory. Social history: No reported history of drug or alcohol abuse. Family history: As per history of present illness and as reviewed below otherwise noncontributory. Physical exam: Constitutional - well developed, well-nourished and in no acute distress HEENT - normocephalic, no evidence of trauma - external nose and mouth normal - no mass in neck and no JVD - mucosae moist EYES - full EOM, PERRL, no icterus - no evidence of inflammation, injection, or drainage Respiratory -under left sternal border with prominence of the left sternum just around the manubrium. No respiratory distress, equal bilateral expansion, lungs clear to auscultation and no abnormal lung sounds Cardiovascular - Regular Rhythm with S1 and S2 appreciated and no murmur, gallop or rub. GI - abdomen soft without distension or organomegaly - normal bowel sounds - no guard or rebound Musculoskeletal no gross deformity of long bones or joints - no tenderness, swe lling or edema Neurologic - Alert and oriented times four - CN II-XII grossly intact - motor sensory and coordination symmetrically normal Psychiatric - appropriate mood and affect with normal thought content Hematologic - No petechiae or purpura - mucosa appropriate color and sclera not pale - normal nail bed color and refill Integument - no rash or evidence of trauma - normal turgor Diagnostics: [] Therapeutics: [] Impression: [] Plan: [] Definitive disposition and diagnosis as appropriate pending reevaluation and review of above. Chest Pain Score (Numeric/FACES): 7 - Related Data Allergies Allergy/AdvReac Type Severity Reaction Status Date / Time morphine Allergy Severe Difficulty Verified 01/08/21 15:05 Breathing Penicillins Allergy Severe Rash Verified 01/08/21 15:05 amoxicillin Allergy Shortness Verified 01/08/21 15:05 of Breath sumatriptan [From Imitrex] Allergy Anaphylactic Verified 01/08/21 15:05 Shock 2 BP Meds Allergy Confusion Uncoded 01/08/21 15:05 Home Meds: Home Meds LORazepam [Ativan] 0.5 mg PO BID PRN 06/02/15 [History] Albuterol Sulfate [Proair Hfa] 2 puff IH Q4HR PRN 01/17/16 [History] Potassium Chloride [Klor-Con M20] 20 meq PO DAILY 01/15/18 [History] Aspirin [Halfprin] 81 mg PO DAILY 05/31/19 [History] Clopidogrel Bisulfate [Plavix] 75 mg PO DAILY 05/31/19 [History] Lisinopril/Hydrochlorothiazide [Lisinopril-HCTZ 10-12.5 MG] 1 tab PO DAILY 05/31/19 [History] Metoprolol Succinate [Toprol XL] 25 mg PO BID 05/31/19 [History] Lawrence-3/DHA/Epa/Fish Oil [Lawrence-3 Fish Oil 1,000 MG Sfgl] 1 cap PO TID 05/31/19 [History] Rosuvastatin Calcium [Crestor] 20 mg PO DAILY 05/31/19 [History] Albuterol/Ipratropium [DuoNeb 3.0-0.5 MG/3 ML] 1 ampule INH Q4HR PRN #1 box 09/18/19 [Rx] Acetaminophen/HYDROcodone [[place] 325-5 MG] 1 tab PO Q4H PRN #12 tablet 01/08/21 [Rx] Azithromycin [Zithromax] 250 mg PO DAILY 5 Days #6 tab 01/08/21 [Rx] Cefpodoxime [Vantin] 200 mg PO BID 7 Days #14 tab 01/08/21 [Rx] Past Medical History HEENT History: Reports: Impaired Vision Cardiovascular History: Reports: Angina, Arrhythmia, High Cholesterol, Hypertension, [place], Stents Other Cardiovascular History: Heart attack in April 2019, trigemeny, bigemeny Respiratory History: Reports: None Other Respiratory History: long time smoker, quit 3 weeks ago Gastrointestinal History: Reports: Cholelithiasis Genitourinary History: Reports: None MANUGRAPHER History: Reports: Polycystic Ovaries Other MANUGRAPHER History: CS Musculoskeletal History: Reports: Fracture Neurological History: Reports: None Psychiatric History: Reports: Anxiety, Other (See Below) Other Psychiatric History: voices seasonal depression Endocrine/Metabolic History: Reports: Diabetes, Type II, Obesity/BMI 30+ Hematologic History: Reports: None Immunologic History: Reports: None Oncologic (Cancer) History: Reports: None Dermatologic History: Reports: None - Infectious Disease History Infectious Disease History: Reports: Chicken Pox Other Infectious Disease History: 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, completed tx - Past Surgical History Head Surgeries/Procedures: Reports: None HEENT Surgical History: Reports: None Cardiovascular Surgical History: Reports: Coronary Artery Stent Respiratory Surgical History: Reports: None GI Surgical History: Reports: Cholecystectomy Female Surgical History: Reports: Section, Cystectomy Endocrine Surgical History: Reports: None Neurological Surgical History: Reports: None Musculoskeletal Surgical History: Reports: None Oncologic Surgical History: Reports: None Dermatological Surgical History: Reports: None Social & Family History - Family History Family Medical History: No Pertinent Family History - Tobacco Use Tobacco Use Status *Q: Never Tobacco User Second Hand Smoke Exposure: Yes - Caffeine Use Caffeine Use: Reports: None - Recreational Drug Use Recreational Drug Use: No ED ROS GENERAL - Review of Systems Review Of Systems: Comprehensive ROS is negative, except as noted in HPI. ED EXAM, GENERAL - Physical Exam Exam: See Below Free Text/Narrative:: My physical exam is in the HPI #1 Interpretation EKG Interpretation Comments: EKG sinus rhythm heart rate 72 ID [address] changes with flattened T waves in V2. This is compared to 03/18/2020 and the T wave inversion in the inferior lead III is no longer present but the T waves are less evident in V2 and V3. Impression no obvious acute injury Course - Vital Signs Last Recorded V/S: Last Vital Signs Temp 37.1 C 01/08/21 15:05 Pulse 80 01/08/21 15:05 Resp 18 01/08/21 15:05 BP 119/77 01/08/21 15:05 Pulse Ox 98 01/08/21 15:05 - Orders/Labs/Meds Orders: Active Orders 24 hr Category Date Time Status EKG Documentation Completion [RC] AM Care 01/08/21 15:03 Active CULTURE BLOOD [BC] Stat Lab 01/08/21 16:00 Received CULTURE BLOOD [BC] Stat Lab 01/08/21 16:08 Received Sodium Chloride 0.9% [Saline Flush] Med 01/08/21 15:03 Active 10 ml FLUSH ASDIRECTED PRN Sodium Chloride 0.9% [Saline Flush] Med 01/08/21 15:03 Active 2.5 ml FLUSH ASDIRECTED PRN Blood Culture x2 Reflex Set [OM.PC] Stat Oth 01/08/21 15:52 Ordered Saline Lock Insert [OM.PC] Stat Oth 01/08/21 15:03 Ordered Medication Orders Sodium Chloride (Sodium Chloride 0.9% 10 Ml Syringe) 10 ml FLUSH ASDIRECTED PRN PRN Reason: Keep Vein Open Sodium Chloride (Sodium Chloride 0.9% 2.5 Ml Syringe) 2.5 ml FLUSH ASDIRECTED PRN PRN Reason: Keep Vein Open Labs: Laboratory Tests 01/08/21 01/08/21 01/08/21 Range/Units 15:32 15:32 15:32 WBC 8.08 (4.0-11.0) K/uL RBC 5.11 (4.30-5.90) M/uL Hgb 15.3 (12.0-16.0) g/dL Hct 44.0 (36.0-46.0) % MCV 86.1 (80.0-98.0) fL MCH 29.9 (27.0-32.0) pg MCHC 34.8 (31.0-37.0) g/dL RDW Std Deviation 41.0 (28.0-62.0) fl RDW Coeff of Pascale 13 (11.0-15.0) % Plt Count 331 (150-400) K/uL MPV 9.70 (7.40-12.00) fL Neut % (Auto) 53.0 (48.0-80.0) % Lymph % (Auto) 35.6 (16.0-40.0) % Meade % (Auto) 9.5 (0.0-15.0) % Eos % (Auto) 1.4 (0.0-7.0) % Baso % (Auto) 0.5 (0.0-1.5) % Neut # (Auto) 4.3 (1.4-5.7) K/uL Lymph # (Auto) 2.9 H (0.6-2.4) K/uL Meade # (Auto) 0.8 (0.0-0.8) K/uL Eos # (Auto) 0.1 (0.0-0.7) K/uL Baso # (Auto) 0.0 (0.0-0.1) K/uL Nucleated RBC % 0.0 /100WBC Nucleated RBCs # 0 K/uL Lactate (0.20-2.00) mmol/L Sodium 134 L (136-145) mmol/L Potassium 3.3 L (3.5-5.1) mmol/L Chloride 99 (98-107) mmol/L Carbon Dioxide 24.9 (21.0-32.0) mmol/L BUN 13 (7.0-18.0) mg/dL Creatinine 0.9 (0.6-1.0) mg/dL Est Cr Clr Drug Dosing 64.40 mL/min Estimated GFR (MDRD) > 60.0 ml/min Glucose 117 H (74-106) mg/dL Calcium 9.0 (8.5-10.1) mg/dL Magnesium 1.8 (1.8-2.4) mg/dL Total Bilirubin 0.3 (0.2-1.0) mg/dL AST 20 (15-37) IU/L ALT 23 (14-63) IU/L Alkaline Phosphatase 64 (46-116) U/L Troponin I < 0.050 (0.000-0.056) ng/mL Total Protein 7.7 (6.4-8.2) g/dL Albumin 3.9 (3.4-5.0) g/dL Globulin 3.8 (2.6-4.0) g/dL Albumin/Globulin Ratio 1.0 (0.9-1.6) 01/08/21 Range/Units 16:00 WBC (4.0-11.0) K/uL RBC (4.30-5.90) M/uL Hgb (12.0-16.0) g/dL Hct (36.0-46.0) % MCV (80.0-98.0) fL MCH (27.0-32.0) pg MCHC (31.0-37.0) g/dL RDW Std Deviation (28.0-62.0) fl RDW Coeff of Pascale (11.0-15.0) % Plt Count (150-400) K/uL MPV (7.40-12.00) fL Neut % (Auto) (48.0-80.0) % Lymph % (Auto) (16.0-40.0) % Meade % (Auto) (0.0-15.0) % Eos % (Auto) (0.0-7.0) % Baso % (Auto) (0.0-1.5) % Neut # (Auto) (1.4-5.7) K/uL Lymph # (Auto) (0.6-2.4) K/uL Meade # (Auto) (0.0-0.8) K/uL Eos # (Auto) (0.0-0.7) K/uL Baso # (Auto) (0.0-0.1) K/uL Nucleated RBC % /100WBC Nucleated RBCs # K/uL Lactate 1.4 (0.20-2.00) mmol/L Sodium (136-145) mmol/L Potassium (3.5-5.1) mmol/L Chloride (98-107) mmol/L Carbon Dioxide (21.0-32.0) mmol/L BUN (7.0-18.0) mg/dL Creatinine (0.6-1.0) mg/dL Est Cr Clr Drug Dosing mL/min Estimated GFR (MDRD) ml/min Glucose (74-106) mg/dL Calcium (8.5-10.1) mg/dL Magnesium (1.8-2.4) mg/dL Total Bilirubin (0.2-1.0) mg/dL AST (15-37) IU/L ALT (14-63) IU/L Alkaline Phosphatase (46-116) U/L Troponin I (0.000-0.056) ng/mL Total Protein (6.4-8.2) g/dL Albumin (3.4-5.0) g/dL Globulin (2.6-4.0) g/dL Albumin/Globulin Ratio (0.9-1.6) Meds: Medications Generic Name Dose Route Start Last Admin Trade Name Freq PRN Reason Stop Dose Admin Sodium Chloride 10 ml 01/08/21 15:03 Sodium Chloride 0.9% 10 Ml Syringe FLUSH ASDIRECTED PRN Keep Vein Open Sodium Chloride 2.5 ml 01/08/21 15:03 Sodium Chloride 0.9% 2.5 Ml Syringe FLUSH ASDIRECTED PRN Keep Vein Open Departure - Departure Time of Disposition: 16:29 Disposition: Home, Self-Care 01 Condition: Good Clinical Impression: Left lower lobe pneumonia, Chest wall pain - Discharge Information Prescriptions: Cefpodoxime [Vantin] 200 mg PO BID 7 Days #14 tab Azithromycin [Zithromax] 250 mg PO DAILY 5 Days #6 tab Instructions: Community-Acquired Pneumonia, Adult, [id number], Chest Wall Pain, [id number] Referrals: PCP,Not In Area [Primary Care Provider] - Forms: ED Department Discharge Additional Instructions: [facility] - Primary Care [address] [place] [address] [place] [address] The following information is given to patients seen in the emergency department who are being discharged to home. This information is to outline your options for follow-up care. We provide all patients seen in our emergency department with a follow-up referral. The need for follow-up, as well as the timing and circumstances, are variable depending upon the specifics of your emergency department visit. If you don't have a primary care physician on staff, we will provide you with a referral. We always advise you to contact your personal physician following an emergency department visit to inform them of the circumstance of the visit and for follow-up with them and/or the need for any referrals to a consulting specialist. The emergency department will also refer you to a specialist when appropriate. This referral assures that you have the opportunity for follow-up care with a specialist. All of these measure are taken in an effort to provide you with optimal care, which includes your follow-up. Under all circumstances we always encourage you to contact your private physician who remains a resource for coordinating your care. When calling for follow-up care, please make the office aware that this follow-up is from your recent emergency room visit. If for any reason you are refused follow-up, please contact the [facility] at and asked to speak to the emergency department charge nurse. Sepsis Event Note (ED) - Evaluation Sepsis Screening Result: No Definite Risk - Focused Exam Vital Signs: Vital Signs Temp Pulse Resp BP Pulse Ox 01/08/21 15:05 37.1 C 80 18 119/77 98 - My Orders Last 24 Hours: My Active Orders 01/08/21 15:03 EKG Documentation Completion [RC] AM Sodium Chloride 0.9% [Saline Flush] 10 ml FLUSH ASDIRECTED PRN Sodium Chloride 0.9% [Saline Flush] 2.5 ml FLUSH ASDIRECTED PRN Saline Lock Insert [OM.PC] Stat 01/08/21 15:52 Blood Culture x2 Reflex Set [OM.PC] Stat 01/08/21 16:00 CULTURE BLOOD [BC] Stat 01/08/21 16:08 CULTURE BLOOD [BC] Stat - Assessment/Plan Last 24 Hours: My Active Orders 01/08/21 15:03 EKG Documentation Completion [RC] AM Sodium Chloride 0.9% [Saline Flush] 10 ml FLUSH ASDIRECTED PRN Sodium Chloride 0.9% [Saline Flush] 2.5 ml FLUSH ASDIRECTED PRN Saline Lock Insert [OM.PC] Stat 01/08/21 15:52 Blood Culture x2 Reflex Set [OM.PC] Stat 01/08/21 16:00 CULTURE BLOOD [BC] Stat 01/08/21 16:08 CULTURE BLOOD [BC] Stat
--- NOTE | 2021-01-08 15:57 | CR ---
Indication: Chest pain Comparison: Two-view chest March 18, 2020 Technique: Single AP view chest Findings: There is hyperinflation and chronic interstitial change. There is no focal consolidation, effusion, or pneumothorax. The cardiac silhouette is mildly prominent with minimal median sternotomy wires. The bony thorax is grossly intact. Impression: Hyperinflation and chronic interstitial change without dense consolidation. Dictated by Joey Mayorga MD @ Jan 08 2021 3:48PM Signed by Dr. Joey Mayorga @ Jan 08 2021 3:56PM
[2021-01-08 16:03] LABS: BLOOD UREA NITROGEN,BUN 13 mg/dL (7.0-18.0); CARBON DIOXIDE,CO2 24.9 mmol/L (21.0-32.0); CHLORIDE,CL 99 mmol/L (98-107); GLUCOSE RANDOM 117 mg/dL (74-106); POTASSIUM,K 3.3 mmol/L (3.5-5.1); SODIUM,NA 134 mmol/L (136-145)
[2021-01-08 16:42] VITALS: BP 124/70; PULSE 81
== END 2021-01-08 16:40 | disposition home or self-care (01) ==
LOC: MW.ED 15:01
DX: J18.9 Pneumonia, unspecified organism (principal); E78.00 Pure hypercholesterolemia, unspecified; I10 Essential (primary) hypertension; I25.2 Old myocardial infarction; E11.9 Type 2 diabetes mellitus without complications; E66.9 Obesity, unspecified; Z68.34 Body mass index [BMI] 34.0-34.9, adult; Z86.16 Personal history of COVID-19; Z87.891 Personal history of nicotine dependence; Z88.5 Allergy status to narcotic agent; Z88.0 Allergy status to penicillin; Z88.8 Allergy status to other drugs, medicaments and biological substances; Z79.82 Long term (current) use of aspirin; Z79.02 Long term (current) use of antithrombotics/antiplatelets; Z79.899 Other long term (current) drug therapy
CPT/HCPCS: 36415; 71045; 71045-26; 80053; 83605; 83735; 84484; 85025; 87040; 93005; 93010; 99284; 99285-25

== ENCOUNTER 2021-07-07 11:45 | Emergency (ER) | payer BC ==
[2021-07-07] MEDS ORDERED: Aspirin 81 MG Tab.Chew PO ONE (11:51)
--- NOTE | 2021-07-07 11:53 | EDM.PDOC ---
ED HPI GENERAL MEDICAL PROBLEM - General Chief Complaint: Chest Pain Stated Complaint: CHEST PAIN Time Seen by Provider: 07/07/21 11:51 Source of Information: Reports: Patient History Limitations: Reports: No Limitations - History of Present Illness INITIAL COMMENTS - FREE TEXT/NARRATIVE: 40-year-old female past medical history CAD status post stenting and CABG procedure on Plavix and aspirin, hypertension, obesity, fully vaccinated against COVID-19 presents for chest pain or shortness of breath. Patient notes that for the last 3 days she has had generalized malaise, nausea, shortness of breath, chest discomfort. She states that this morning upon waking up she noted left anterior chest pain radiating down the left arm and into the upper back. It is associated with mild shortness of breath. She denies any fevers or significant coughing. Right Upper Chest Pain Score (Numeric/FACES): 7 - Related Data Allergies Allergy/AdvReac Type Severity Reaction Status Date / Time morphine Allergy Severe Difficulty Verified 07/07/21 12:02 Breathing Penicillins Allergy Severe Rash Verified 07/07/21 12:02 amoxicillin Allergy Shortness Verified 07/07/21 12:02 of Breath sumatriptan [From Imitrex] Allergy Anaphylactic Verified 07/07/21 12:02 Shock 2 BP Meds Allergy Confusion Uncoded 07/07/21 12:02 Home Meds: Home Meds LORazepam [Ativan] 0.5 mg PO BID PRN 06/02/15 [History] Albuterol Sulfate [Proair Hfa] 2 puff IH Q4HR PRN 01/17/16 [History] Potassium Chloride [Klor-Con M20] 20 meq PO DAILY 01/15/18 [History] Aspirin [Halfprin] 81 mg PO DAILY 05/31/19 [History] Clopidogrel Bisulfate [Plavix] 75 mg PO DAILY 05/31/19 [History] Lisinopril/Hydrochlorothiazide [Lisinopril-HCTZ 10-12.5 MG] 1 tab PO DAILY 05/31/19 [History] Metoprolol Succinate [Toprol XL] 25 mg PO BID 05/31/19 [History] [place]-3/DHA/Epa/Fish Oil [[place]-3 Fish Oil 1,000 MG Sfgl] 1 cap PO TID 05/31/19 [History] Rosuvastatin Calcium [Crestor] 20 mg PO DAILY 05/31/19 [History] Albuterol/Ipratropium [DuoNeb 3.0-0.5 MG/3 ML] 1 ampule INH Q4HR PRN #1 box 09/18/19 [Rx] Acetaminophen/HYDROcodone [[place] 325-5 MG] 1 tab PO Q4H PRN #12 tablet 01/08/21 [Rx] Azithromycin [Zithromax] 250 mg PO DAILY 5 Days #6 tab 01/08/21 [Rx] Cefpodoxime [Vantin] 200 mg PO BID 7 Days #14 tab 01/08/21 [Rx] Acetaminophen/oxyCODONE [Percocet 325-5 MG] 1 each PO Q6H PRN #12 tab 07/07/21 [Rx] Azithromycin 250 mg PO DAILY 5 Days #6 tablet 07/07/21 [Rx] predniSONE [Prednisone] 40 mg PO DAILY 5 Days #10 tablet 07/07/21 [Rx] Past Medical History HEENT History: Reports: Impaired Vision Cardiovascular History: Reports: Angina, Arrhythmia, High Cholesterol, Hypertension, [place], Stents Other Cardiovascular History: Heart attack in April 2019, [place] Respiratory History: Reports: None Other Respiratory History: long time smoker, quit 3 weeks ago Gastrointestinal History: Reports: Cholelithiasis Genitourinary History: Reports: None WELL CONTROL INSTRUCTOR History: Reports: Polycystic Ovaries Other WELL CONTROL INSTRUCTOR History: CS Musculoskeletal History: Reports: Fracture Neurological History: Reports: None Psychiatric History: Reports: Anxiety, Other (See Below) Other Psychiatric History: voices seasonal depression Endocrine/Metabolic History: Reports: Diabetes, Type II, Obesity/BMI 30+ Hematologic History: Reports: None Immunologic History: Reports: None Oncologic (Cancer) History: Reports: None Dermatologic History: Reports: None - Infectious Disease History Infectious Disease History: Reports: Chicken Pox Other Infectious Disease History: 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, completed tx - Past Surgical History Head Surgeries/Procedures: Reports: None HEENT Surgical History: Reports: None Cardiovascular Surgical History: Reports: Coronary Artery Stent Respiratory Surgical History: Reports: None GI Surgical History: Reports: Cholecystectomy Female Surgical History: Reports: Section, Cystectomy Endocrine Surgical History: Reports: None Neurological Surgical History: Reports: None Musculoskeletal Surgical History: Reports: None Oncologic Surgical History: Reports: None Dermatological Surgical History: Reports: None Social & Family History - Family History Family Medical History: No Pertinent Family History - Caffeine Use Caffeine Use: Reports: None ED ROS GENERAL - Review of Systems Review Of Systems: Comprehensive ROS is negative, except as noted in HPI. ED EXAM, GENERAL - Physical Exam Exam: See Below Exam Limited By: No Limitations General Appearance: Alert, WD/WN, No Apparent Distress Ears: Hearing Grossly Normal Throat/Mouth: Normal Voice, No Airway Compromise Head: Atraumatic, Normocephalic Respiratory/Chest: No Respiratory Distress, Lungs Clear, Normal Breath Sounds, No Accessory Muscle Use Cardiovascular: Normal Peripheral Pulses, Regular Rate, Rhythm, No Edema GI/Abdominal: Soft, Non-Tender Extremities: Normal Inspection Neurological: Alert, Normal Cognition, Normal Gait Psychiatric: Normal Affect, Normal Mood Skin Exam: Warm, Dry, Intact, Normal Color #1 Interpretation EKG Date: 07/07/21 Time: 11:45 Rhythm: NSR Rate (Beats/Min): 71 [place]: Normal P-Wave: Present QRS: Normal ST-T: Normal QT: Normal SD/PQ Interval: 154 Comparison: NA - No Prior EKG EKG Interpretation Comments: unremarkable EKG Course - Vital Signs Last Recorded V/S: Last Vital Signs Temp 97.4 F 07/07/21 11:57 Pulse 80 07/07/21 11:57 Resp 20 07/07/21 11:57 BP 143/84 H 07/07/21 11:57 Pulse Ox 100 07/07/21 11:57 - Orders/Labs/Meds Orders: Active Orders 24 hr Category Date Time Status Saline Lock Insert [OM.PC] Stat Oth 07/07/21 11:51 Ordered Labs: Laboratory Tests 07/07/21 07/07/21 07/07/21 Range/Units 11:56 11:56 11:56 WBC 8.54 (4.0-11.0) K/uL RBC 4.77 (4.30-5.90) M/uL Hgb 13.9 (12.0-16.0) g/dL Hct 40.0 (36.0-46.0) % MCV 83.9 (80.0-98.0) fL MCH 29.1 (27.0-32.0) pg MCHC 34.8 (31.0-37.0) g/dL RDW Std Deviation 43.1 (28.0-62.0) fl RDW Coeff of Pascale 14 (11.0-15.0) % Plt Count 316 (150-400) K/uL MPV 9.40 (7.40-12.00) fL Neut % (Auto) 61.0 (48.0-80.0) % Lymph % (Auto) 28.2 (16.0-40.0) % Major % (Auto) 7.8 (0.0-15.0) % Eos % (Auto) 2.6 (0.0-7.0) % Baso % (Auto) 0.4 (0.0-1.5) % Neut # (Auto) 5.2 (1.4-5.7) K/uL Lymph # (Auto) 2.4 (0.6-2.4) K/uL Major # (Auto) 0.7 (0.0-0.8) K/uL Eos # (Auto) 0.2 (0.0-0.7) K/uL Baso # (Auto) 0.0 (0.0-0.1) K/uL Nucleated RBC % 0.0 /100WBC Nucleated RBCs # 0 K/uL Sodium (136-145) mmol/L Potassium (3.5-5.1) mmol/L Chloride (98-107) mmol/L Carbon Dioxide (21.0-32.0) mmol/L BUN (7.0-18.0) mg/dL Creatinine (0.6-1.0) mg/dL Est Cr Clr Drug Dosing mL/min Estimated GFR (MDRD) ml/min Glucose (74-106) mg/dL Calcium (8.5-10.1) mg/dL Magnesium 1.7 L (1.8-2.4) mg/dL Total Bilirubin (0.2-1.0) mg/dL AST (15-37) IU/L ALT (14-63) IU/L Alkaline Phosphatase (46-116) U/L Troponin I < 0.050 (0.000-0.056) ng/mL C-Reactive Protein < 0.20 (0.00-0.90) mg/dL B-Natriuretic Peptide 62 (<100) PG/ML Total Protein (6.4-8.2) g/dL Albumin (3.4-5.0) g/dL Globulin (2.6-4.0) g/dL Albumin/Globulin Ratio (0.9-1.6) Lipase 63 L (73-393) U/L SARS-CoV-2 RNA (NIGEL) (NEGATIVE) 07/07/21 07/07/21 07/07/21 Range/Units 12:15 14:00 14:00 WBC (4.0-11.0) K/uL RBC (4.30-5.90) M/uL Hgb (12.0-16.0) g/dL Hct (36.0-46.0) % MCV (80.0-98.0) fL MCH (27.0-32.0) pg MCHC (31.0-37.0) g/dL RDW Std Deviation (28.0-62.0) fl RDW Coeff of Pascale (11.0-15.0) % Plt Count (150-400) K/uL MPV (7.40-12.00) fL Neut % (Auto) (48.0-80.0) % Lymph % (Auto) (16.0-40.0) % Major % (Auto) (0.0-15.0) % Eos % (Auto) (0.0-7.0) % Baso % (Auto) (0.0-1.5) % Neut # (Auto) (1.4-5.7) K/uL Lymph # (Auto) (0.6-2.4) K/uL Major # (Auto) (0.0-0.8) K/uL Eos # (Auto) (0.0-0.7) K/uL Baso # (Auto) (0.0-0.1) K/uL Nucleated RBC % /100WBC Nucleated RBCs # K/uL Sodium 136 (136-145) mmol/L Potassium 4.0 (3.5-5.1) mmol/L Chloride 102 (98-107) mmol/L Carbon Dioxide 27.9 (21.0-32.0) mmol/L BUN 9 (7.0-18.0) mg/dL Creatinine 0.8 (0.6-1.0) mg/dL Est Cr Clr Drug Dosing 72.45 mL/min Estimated GFR (MDRD) > 60.0 ml/min Glucose 139 H (74-106) mg/dL Calcium 8.4 L (8.5-10.1) mg/dL Magnesium (1.8-2.4) mg/dL Total Bilirubin 0.2 (0.2-1.0) mg/dL AST 23 (15-37) IU/L ALT 35 (14-63) IU/L Alkaline Phosphatase 59 (46-116) U/L Troponin I < 0.050 (0.000-0.056) ng/mL C-Reactive Protein (0.00-0.90) mg/dL B-Natriuretic Peptide (<100) PG/ML Total Protein 6.9 (6.4-8.2) g/dL Albumin 3.6 (3.4-5.0) g/dL Globulin 3.3 (2.6-4.0) g/dL Albumin/Globulin Ratio 1.1 (0.9-1.6) Lipase (73-393) U/L SARS-CoV-2 RNA (NIGEL) NEGATIVE (NEGATIVE) Meds: Medications Discontinued Medications Generic Name Dose Route Start Last Admin Trade Name Cordell PRN Reason Stop Dose Admin Aspirin 324 mg 07/07/21 11:51 07/07/21 12:11 Aspirin 81 Mg Tab.Chew PO 07/07/21 11:52 243 mg ONETIME ONE Administration Morphine Sulfate 4 mg 07/07/21 13:40 07/07/21 14:15 Morphine 4 Mg/Ml Syringe IVPUSH 07/07/21 13:41 4 mg ONETIME ONE Administration - Re-Assessments/Exams Free Text/Narrative Re-Assessment/Exam: 07/07/21 13:40 Initial set of labs unremarkable. Will get a repeat troponin. Had a long discussion with patient regarding disposition. I did offer patient admission for chest pain work-up as she is a high risk patient considering her past medical history. Patient declines but she is willing to stay for an additional troponin. She notes that she is been getting frequent pneumonias since her Covid diagnosis last year. Considering the scarring versus infiltrate on chest x-ray will discharge with antibiotic. Will discharge with steroids this patient notes that this is helped her in the past. Will discharge with a short course of analgesia. Patient agrees to follow-up with principal technical specialist. 07/07/21 15:26 Repeat troponin is negative. Will discharge as indicated above. Departure - Departure Time of Disposition: 15:26 Disposition: Home, Self-Care 01 Condition: Good Clinical Impression: Chest pain Qualifiers: Chest pain type: other chest pain Qualified Code(s): R07.89 - Other chest pain - Discharge Information Prescriptions: Acetaminophen/oxyCODONE [Percocet 325-5 MG] 1 each PO Q6H PRN #12 tab PRN Reason: Pain predniSONE [Prednisone] 40 mg PO DAILY 5 Days #10 tablet Instructions: Nonspecific Chest Pain, Adult Referrals: PCP,None [Primary Care Provider] - Forms: ED Department Discharge Additional Instructions: Please follow-up with your principal technical specialist. The following information is given to patients seen in the emergency department who are being discharged to home. This information is to outline your options for follow-up care. We provide all patients seen in our emergency department with a follow-up referral. The need for follow-up, as well as the timing and circumstances, are variable depending upon the specifics of your emergency department visit. If you don't have a primary care physician on staff, we will provide you with a referral. We always advise you to contact your personal physician following an emergency department visit to inform them of the circumstance of the visit and for follow-up with them and/or the need for any referrals to a consulting specialist. The emergency department will also refer you to a specialist when appropriate. This referral assures that you have the opportunity for follow-up care with a specialist. All of these measure are taken in an effort to provide you with optimal care, which includes your follow-up. Under all circumstances we always encourage you to contact your private physician who remains a resource for coordinating your care. When calling for follow-up care, please make the office aware that this follow-up is from your recent emergency room visit. If for any reason you are refused follow-up, please contact the [facility] Emergency Department at and asked to speak to the emergency department charge nurse. Please follow up with your primary care physician. If you do not have a primary care physician, see below: [facility] [address] [place] [id number] [id number] [facility] [address] [place] [address] Sepsis Event Note (ED) - Focused Exam Vital Signs: Vital Signs Temp Pulse Resp BP Pulse Ox 07/07/21 11:57 97.4 F 80 20 143/84 H 100 - My Orders Last 24 Hours: My Active Orders 07/07/21 11:51 Saline Lock Insert [OM.PC] Stat - Assessment/Plan Last 24 Hours: My Active Orders 07/07/21 11:51 Saline Lock Insert [OM.PC] Stat
[2021-07-07 12:25] VITALS: BP 143/84; PULSE 80
[2021-07-07 12:34] LABS: LIPASE 63 U/L (73-393)
--- NOTE | 2021-07-07 12:37 | CR ---
INDICATION: Chest pain and SOB. TECHNIQUE: Upright portable AP image of the chest. COMPARISON: None. FINDINGS: Mid left lung opacity with obscured left diaphragm, suggesting lingular atelectasis and/or infiltrate. Lungs otherwise clear. No pleural effusion. Heart size and pulmonary vascularity grossly normal. Sternal wires. No significant bony abnormality. IMPRESSION: 1. Suspected lingular atelectasis and/or infiltrate. 2. Post sternotomy. Dictated by Clarence Cade MD @ 07/07/2021 12:36:43 PM (Electronically Signed)
[2021-07-07] MEDS ORDERED: Morphine 4 MG/ML Syringe IVPUSH ONE (13:40)
[2021-07-07 14:30] LABS: BLOOD UREA NITROGEN,BUN 9 mg/dL (7.0-18.0); CARBON DIOXIDE,CO2 27.9 mmol/L (21.0-32.0); CHLORIDE,CL 102 mmol/L (98-107); GLUCOSE RANDOM 139 mg/dL (74-106); SODIUM,NA 136 mmol/L (136-145)
== END 2021-07-07 15:54 | disposition home or self-care (01) ==
LOC: MW.ED 11:45
DX: R07.89 Other chest pain (principal); I25.10 Atherosclerotic heart disease of native coronary artery without angina pectoris; I10 Essential (primary) hypertension; I25.2 Old myocardial infarction; E66.9 Obesity, unspecified; Z20.822 Contact with and (suspected) exposure to COVID-19; Z68.36 Body mass index [BMI] 36.0-36.9, adult; Z95.1 Presence of aortocoronary bypass graft; Z88.5 Allergy status to narcotic agent; Z88.0 Allergy status to penicillin; Z88.8 Allergy status to other drugs, medicaments and biological substances; Z79.02 Long term (current) use of antithrombotics/antiplatelets; Z79.82 Long term (current) use of aspirin; Z79.899 Other long term (current) drug therapy
CPT/HCPCS: 36415; 71045; 80053; 83690; 83735; 83880; 84484; 85025; 86140; 87635; 93005; 96374; 99285; A9270; J2270; U0002

== ENCOUNTER 2021-10-29 08:29 | Emergency (ER) | payer BC ==
[2021-10-29] MEDS ORDERED: Sodium Chloride 0.9% 2.5 ML Syringe FLUSH PRN (08:52)
[2021-10-29] MEDS ORDERED: Sodium Chloride 0.9% 10 ML Syringe FLUSH PRN (08:52)
--- NOTE | 2021-10-29 08:55 | EDM.PDOC ---
ED HPI GENERAL MEDICAL PROBLEM - General Chief Complaint: Chest Pain Stated Complaint: COUGH/HARD TO BREATH Time Seen by Provider: 10/29/21 08:34 - History of Present Illness INITIAL COMMENTS - FREE TEXT/NARRATIVE: History of present illness: [] Patient has chest pain that started last night. During the day yesterday she was vomiting and sick and when she felt like her vomiting is gotten better she started to develop a constant chest pain that feels like somebody is pushing her fist through her anterior chest to her back. It is worse with exertion and she is dyspneic for 2 days. Her dyspnea is worse than her usual baseline chronic dyspnea. It is also worse with exertion. Patient's been somewhat diaphoretic and still is somewhat nauseated. Patient has had bypass surgery a little more than a year ago. Patient is diabetic, treated for hypertension and cholesterol, and has a significant family history of cardiovascular disease and stroke. She smokes. Review of systems: As per history of present illness and below otherwise all systems reviewed and negative. Past medical history: As per history of present illness and as reviewed below otherwise noncontributory. Surgical history: As per history of present illness and as reviewed below otherwise noncontributory. Social history: No reported history of drug or alcohol abuse. Family history: As per history of present illness and as reviewed below otherwise noncontributory. Physical exam: Constitutional - well developed, well-nourished and in no acute distress HEENT - normocephalic, no evidence of trauma - external nose and mouth normal - no mass in neck and no JVD - mucosae moist EYES - full EOM, PERRL, no icterus - no evidence of inflammation, injection, or drainage Respiratory - no respiratory distress, equal bilateral expansion, lungs clear to auscultation and no abnormal lung sounds Cardiovascular - Regular Rhythm with S1 and S2 appreciated and no murmur, gallop or rub. GI - abdomen soft without distension or organomegaly - normal bowel sounds - no guard or rebound Musculoskeletal no gross deformity of long bones or joints - no tenderness, swelling or edema Neurologic - Alert and oriented times four - CN II-XII grossly intact - motor sensory and coordination symmetrically normal Psychiatric - appropriate mood and affect with normal thought content Hematologic - No petechiae or purpura - mucosa appropriate color and sclera not pale - normal nail bed color and refill Integument - no rash or evidence of trauma - normal turgor Diagnostics: [] Therapeutics: [] Impression: [] Plan: [] Definitive disposition and diagnosis as appropriate pending reevaluation and review of above. Chest Pain Score (Numeric/FACES): 7 - Related Data Allergies Allergy/AdvReac Type Severity Reaction Status Date / Time morphine Allergy Severe Difficulty Verified 07/07/21 12:02 Breathing Penicillins Allergy Severe Rash Verified 07/07/21 12:02 amoxicillin Allergy Shortness Verified 07/07/21 12:02 of Breath ibuprofen Allergy Cannot Verified 10/29/21 08:54 Remember sumatriptan [From Imitrex] Allergy Anaphylactic Verified 07/07/21 12:02 Shock 2 BP Meds Allergy Confusion Uncoded 07/07/21 12:02 Home Meds: Home Meds Albuterol Sulfate [Proair Hfa] 2 puff IH Q4HR PRN 01/17/16 [History] Aspirin [Halfprin] 81 mg PO DAILY 05/31/19 [History] Clopidogrel Bisulfate [Plavix] 75 mg PO DAILY 05/31/19 [History] Lisinopril/Hydrochlorothiazide [Lisinopril-HCTZ 10-12.5 MG] 1 tab PO DAILY 05/31/19 [History] Metoprolol Succinate [Toprol XL] 25 mg PO BID 05/31/19 [History] Rosuvastatin Calcium [Crestor] 20 mg PO DAILY 05/31/19 [History] Albuterol/Ipratropium [DuoNeb 3.0-0.5 MG/3 ML] 1 ampule INH Q4HR PRN #1 box 09/18/19 [Rx] Cefpodoxime [Vantin] 200 mg PO BID 7 Days #14 tab 01/08/21 [Rx] Acetaminophen/oxyCODONE [Percocet 325-5 MG] 1 each PO Q6H PRN #12 tab 07/07/21 [Rx] ALPRAZolam [Xanax] 0.25 mg PO 10/29/21 [History] Acetaminophen/oxyCODONE [Percocet 325-10 MG] 1 tab PO Q6H PRN #10 tab 10/29/21 [Rx] predniSONE [Prednisone] 60 mg PO DAILY #21 tablet 10/29/21 [Rx] Past Medical History HEENT History: Reports: Impaired Vision Cardiovascular History: Reports: Angina, Arrhythmia, High Cholesterol, Hypertension, [place], Stents, Other (See Below) Other Cardiovascular History: Heart attack in April 2019, narinder ferris; suspected pericarditis 01/2021 Respiratory History: Reports: Asthma Other Respiratory History: long time smoker, quit 3 weeks ago Gastrointestinal History: Reports: Cholelithiasis Genitourinary History: Reports: None BOAT BUFFER PLASTIC History: Reports: Polycystic Ovaries Other BOAT BUFFER PLASTIC History: CS Musculoskeletal History: Reports: Fracture Neurological History: Reports: None Psychiatric History: Reports: Anxiety, Other (See Below) Other Psychiatric History: voices seasonal depression Endocrine/Metabolic History: Reports: Diabetes, Type II, Obesity/BMI 30+ Hematologic History: Reports: None Immunologic History: Reports: None Oncologic (Cancer) History: Reports: None Dermatologic History: Reports: None - Infectious Disease History Infectious Disease History: Reports: Chicken Pox, Novel Coronavirus Other Infectious Disease History: 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, completed tx - Past Surgical History Head Surgeries/Procedures: Reports: None HEENT Surgical History: Reports: None Cardiovascular Surgical History: Reports: Coronary Artery Stent Other Cardiovascular Surgeries/Procedures: Quadruple bypass March 2020 Respiratory Surgical History: Reports: None GI Surgical History: Reports: Cholecystectomy Female Surgical History: Reports: Section, Cystectomy Endocrine Surgical History: Reports: None Neurological Surgical History: Reports: None Musculoskeletal Surgical History: Reports: None Oncologic Surgical History: Reports: None Dermatological Surgical History: Reports: None Social & Family History - Family History Family Medical History: No Pertinent Family History Cardiac: Reports: High Cholesterol, Hypertension, [place] Neurological: Reports: CVA Endocrine/Metabolic: Reports: Diabetes, type II - Caffeine Use Caffeine Use: Reports: Coffee - Recreational Drug Use Recreational Drug Use: No ED ROS GENERAL - Review of Systems Review Of Systems: Comprehensive ROS is negative, except as noted in HPI. ED EXAM, GENERAL - Physical Exam Exam: See Below Free Text/Narrative:: My physical exam is in the HPI #1 Interpretation EKG Interpretation Comments: EKG shows a sinus rhythm with a heart rate 83 [place] 149 QT duration 453 and axis 62. The patient has nonspecific ST and T changes with flat T's in the inferior leads in the lateral leads in the precordium. Compared to 07/07/2021 the T waves are clearly no longer upright and normal in the inferior and lateral leads. The patient did have a history of pericarditis and this may be gradual progression or could be ischemia. Impression possible ischemia. Course - Vital Signs Last Recorded V/S: Last Vital Signs Temp 36.7 C 10/29/21 09:53 Pulse 89 10/29/21 09:53 Resp 16 10/29/21 09:53 BP 167/108 H 10/29/21 09:53 Pulse Ox 97 10/29/21 09:53 - Orders/Labs/Meds Labs: Laboratory Tests 10/29/21 10/29/21 10/29/21 Range/Units 08:40 08:40 08:53 WBC 7.39 (4.0-11.0) K/uL RBC 5.31 (4.30-5.90) M/uL Hgb 15.8 (12.0-16.0) g/dL Hct 44.4 (36.0-46.0) % MCV 83.6 (80.0-98.0) fL MCH 29.8 (27.0-32.0) pg MCHC 35.6 (31.0-37.0) g/dL RDW Std Deviation 45.2 (28.0-62.0) fl RDW Coeff of Pascale 15 (11.0-15.0) % Plt Count 288 (150-400) K/uL MPV 9.60 (7.40-12.00) fL Neut % (Auto) 59.9 (48.0-80.0) % Lymph % (Auto) 29.8 (16.0-40.0) % [place] % (Auto) 6.1 (0.0-15.0) % Eos % (Auto) 3.7 (0.0-7.0) % Baso % (Auto) 0.5 (0.0-1.5) % Neut # (Auto) 4.4 (1.4-5.7) K/uL Lymph # (Auto) 2.2 (0.6-2.4) K/uL [place] # (Auto) 0.5 (0.0-0.8) K/uL Eos # (Auto) 0.3 (0.0-0.7) K/uL Baso # (Auto) 0.0 (0.0-0.1) K/uL Nucleated RBC % 0.0 /100WBC Nucleated RBCs # 0 K/uL Sodium 137 (136-145) mmol/L Potassium 3.4 L (3.5-5.1) mmol/L Chloride 99 (98-107) mmol/L Carbon Dioxide 26.6 (21.0-32.0) mmol/L BUN 9 (7.0-18.0) mg/dL Creatinine 0.9 (0.6-1.0) mg/dL Est Cr Clr Drug Dosing 63.75 mL/min Estimated GFR (MDRD) > 60.0 ml/min Glucose 237 H (74-106) mg/dL Calcium 8.9 (8.5-10.1) mg/dL Total Bilirubin 0.4 (0.2-1.0) mg/dL AST 23 (15-37) IU/L ALT 34 (14-63) IU/L Alkaline Phosphatase 58 (46-116) U/L Troponin I < 0.050 (0.000-0.056) ng/mL Total Protein 7.4 (6.4-8.2) g/dL Albumin 3.8 (3.4-5.0) g/dL Globulin 3.6 (2.6-4.0) g/dL Albumin/Globulin Ratio 1.1 (0.9-1.6) Urine Color YELLOW Urine Appearance SLT CLOUDY Urine pH 6.0 (5.0-8.0) Ur Specific [place] >= 1.030 (1.001-1.035) Urine Protein NEGATIVE (NEGATIVE) mg/dL Urine Glucose (UA) 500 H (NEGATIVE) mg/dL Urine Ketones TRACE H (NEGATIVE) mg/dL Urine Occult Blood SMALL H (NEGATIVE) Urine Nitrite NEGATIVE (NEGATIVE) Urine Bilirubin NEGATIVE (NEGATIVE) Urine Urobilinogen 0.2 (<2.0) EU/dL Ur Leukocyte Esterase NEGATIVE (NEGATIVE) Urine RBC 2-3 (0-2/HPF) Urine WBC 0-1 (0-5/HPF) Ur Epithelial Cells FEW (NONE-FEW) Urine Bacteria RARE (NEGATIVE) Urine Mucus LIGHT (NONE-MOD) Influenza Type A RNA (NEGATIVE) Influenza Type B RNA (NEGATIVE) SARS-CoV-2 RNA (NIGEL) (NEGATIVE) 10/29/21 Range/Units 09:02 WBC (4.0-11.0) K/uL RBC (4.30-5.90) M/uL Hgb (12.0-16.0) g/dL Hct (36.0-46.0) % MCV (80.0-98.0) fL MCH (27.0-32.0) pg MCHC (31.0-37.0) g/dL RDW Std Deviation (28.0-62.0) fl RDW Coeff of [place] (11.0-15.0) % Plt Count (150-400) K/uL MPV (7.40-12.00) fL Neut % (Auto) (48.0-80.0) % Lymph % (Auto) (16.0-40.0) % [place] % (Auto) (0.0-15.0) % Eos % (Auto) (0.0-7.0) % Baso % (Auto) (0.0-1.5) % Neut # (Auto) (1.4-5.7) K/uL Lymph # (Auto) (0.6-2.4) K/uL [place] # (Auto) (0.0-0.8) K/uL Eos # (Auto) (0.0-0.7) K/uL Baso # (Auto) (0.0-0.1) K/uL Nucleated RBC % /100WBC Nucleated RBCs # K/uL Sodium (136-145) mmol/L Potassium (3.5-5.1) mmol/L Chloride (98-107) mmol/L Carbon Dioxide (21.0-32.0) mmol/L BUN (7.0-18.0) mg/dL Creatinine (0.6-1.0) mg/dL Est Cr Clr Drug Dosing mL/min Estimated GFR (MDRD) ml/min Glucose (74-106) mg/dL Calcium (8.5-10.1) mg/dL Total Bilirubin (0.2-1.0) mg/dL AST (15-37) IU/L ALT (14-63) IU/L Alkaline Phosphatase (46-116) U/L Troponin I (0.000-0.056) ng/mL Total Protein (6.4-8.2) g/dL Albumin (3.4-5.0) g/dL Globulin (2.6-4.0) g/dL Albumin/Globulin Ratio (0.9-1.6) Urine Color Urine Appearance Urine pH (5.0-8.0) Ur Specific [place] (1.001-1.035) Urine Protein (NEGATIVE) mg/dL Urine Glucose (UA) (NEGATIVE) mg/dL Urine Ketones (NEGATIVE) mg/dL Urine Occult Blood (NEGATIVE) Urine Nitrite (NEGATIVE) Urine Bilirubin (NEGATIVE) Urine Urobilinogen (<2.0) EU/dL Ur Leukocyte Esterase (NEGATIVE) Urine RBC (0-2/HPF) Urine WBC (0-5/HPF) Ur Epithelial Cells (NONE-FEW) Urine Bacteria (NEGATIVE) Urine Mucus (NONE-MOD) Influenza Type A RNA NEGATIVE (NEGATIVE) Influenza Type B RNA NEGATIVE (NEGATIVE) SARS-CoV-2 RNA (NIGEL) NEGATIVE (NEGATIVE) Meds: Medications Discontinued Medications Generic Name Dose Route Start Last Admin Trade Name Freq PRN Reason Stop Dose Admin Sodium Chloride 10 ml 10/29/21 08:52 10/29/21 09:02 Sodium Chloride 0.9% 10 Ml Syringe FLUSH 10 ml ASDIRECTED PRN Administration Keep Vein Open Sodium Chloride 2.5 ml 10/29/21 08:52 10/29/21 09:02 Sodium Chloride 0.9% 2.5 Ml Syringe FLUSH 2.5 ml ASDIRECTED PRN Administration Keep Vein Open - Re-Assessments/Exams Free Text/Narrative Re-Assessment/Exam: 10/29/21 09:35 Patient has had similar situation before and received antibiotics steroids and painkillers and did well. She has a negative troponin more than 4 hours after the onset of her symptoms. I feel like it is inflammatory pain. Her ST and T changes are probably metamorphosis going on after a recent pericarditis. She will return if not improving on the medications. Just waiting for the Covid test. She had 2 dose of the vaccine in the winter and then had a booster recently. Departure - Departure Time of Disposition: 09:52 Disposition: Home, Self-Care 01 Condition: Good Clinical Impression: Chest pain Qualifiers: Chest pain type: other chest pain Qualified Code(s): R07.89 - Other chest pain - Discharge Information Prescriptions: Acetaminophen/oxyCODONE [Percocet 325-10 MG] 1 tab PO Q6H PRN #10 tab PRN Reason: Pain (Severe 7-10) predniSONE [Prednisone] 60 mg PO DAILY #21 tablet Instructions: Nonspecific Chest Pain, Adult, Czjr-[id number] Referrals: Floyd Sahni MD [Primary Care Provider] - Forms: ED Department Discharge Additional Instructions: [place] went [place] [facility] which is open until 6 PM. There will be no pharmacy in [place] open until 8 AM Monday after this closes. if you are not improving he should return and we should consider doing further cardiac studies. [facility] - Primary Care [address] [place] [id number] [facility] [address] [place] [id number] The following information is given to patients seen in the emergency department who are being discharged to home. This information is to outline your options for follow-up care. We provide all patients seen in our emergency department with a follow-up referral. The need for follow-up, as well as the timing and circumstances, are variable depending upon the specifics of your emergency department visit. If you don't have a primary care physician on staff, we will provide you with a referral. We always advise you to contact your personal physician following an emergency department visit to inform them of the circumstance of the visit and for follow-up with them and/or the need for any referrals to a consulting specialist. The emergency department will also refer you to a specialist when appropriate. This referral assures that you have the opportunity for follow-up care with a specialist. All of these measure are taken in an effort to provide you with optimal care, which includes your follow-up. Under all circumstances we always encourage you to contact your private physician who remains a resource for coordinating your care. When calling for follow-up care, please make the office aware that this follow-up is from your recent emergency room visit. If for any reason you are refused follow-up, please contact the [facility] Emergency Department at and asked to speak to the emergency department charge nurse. Sepsis Event Note (ED) - Evaluation Sepsis Screening Result: No Definite Risk
[2021-10-29 09:12] LABS: BLOOD UREA NITROGEN,BUN 9 mg/dL (7.0-18.0); CARBON DIOXIDE,CO2 26.6 mmol/L (21.0-32.0); CHLORIDE,CL 99 mmol/L (98-107); GLUCOSE RANDOM 237 mg/dL (74-106); POTASSIUM,K 3.4 mmol/L (3.5-5.1); SODIUM,NA 137 mmol/L (136-145)
[2021-10-29 09:49] LABS: CORONAVIRUS COVID-19 NAA NEGATIVE (NEGATIVE); INFLUENZA A NAA NEGATIVE (NEGATIVE); INFLUENZA B NAA NEGATIVE (NEGATIVE)
--- NOTE | 2021-10-29 09:50 | CR ---
INDICATION: Chest pain TECHNIQUE: Chest 1 view Comparison: 07/07/2021 Findings: Cardiomediastinal silhouette is unremarkable. No focal lung consolidation, pleural effusion or pneumothorax. Sternotomy hardware. Impression: No acute cardiopulmonary abnormality. Dictated by Hood Gr MD @ 10/29/2021 9:48:28 AM (Electronically Signed)
[2021-10-29 09:52] VITALS: PULSE 89
[2021-10-29 09:54] VITALS: BP 167/108
== END 2021-10-29 09:56 | disposition home or self-care (01) ==
LOC: MW.ED 08:29
DX: R07.89 Other chest pain (principal); E78.00 Pure hypercholesterolemia, unspecified; I10 Essential (primary) hypertension; I25.2 Old myocardial infarction; Z95.5 Presence of coronary angioplasty implant and graft; Z88.0 Allergy status to penicillin; Z88.5 Allergy status to narcotic agent; Z88.8 Allergy status to other drugs, medicaments and biological substances; Z79.82 Long term (current) use of aspirin; Z79.02 Long term (current) use of antithrombotics/antiplatelets; Z79.899 Other long term (current) drug therapy; Z20.822 Contact with and (suspected) exposure to COVID-19
CPT/HCPCS: 0240U; 36415; 71045; 80053; 81001; 84484; 85025; 93005; 99285

== ENCOUNTER 2021-11-10 12:00 | Emergency (ER) | payer BC ==
[2021-11-10] MEDS ORDERED: Aspirin 81 MG Tab.Chew PO ONE (12:20)
[2021-11-10] MEDS ORDERED: Sodium Chloride 0.9% 10 ML Syringe FLUSH PRN (12:21)
[2021-11-10] MEDS ORDERED: Sodium Chloride 0.9% 2.5 ML Syringe FLUSH PRN (12:21)
[2021-11-10 12:51] LABS: BLOOD UREA NITROGEN,BUN 10 mg/dL (7.0-18.0); CARBON DIOXIDE,CO2 23.1 mmol/L (21.0-32.0); CHLORIDE,CL 97 mmol/L (98-107); GLUCOSE RANDOM 229 mg/dL (74-106); POTASSIUM,K 3.3 mmol/L (3.5-5.1); SODIUM,NA 134 mmol/L (136-145)
[2021-11-10] MEDS ORDERED: Acetaminophen/oxyCODONE 325-10 MG Tab PO ONE (13:42)
[2021-11-10 13:58] VITALS: BP 111/74; PULSE 92
== END 2021-11-10 14:02 | disposition home or self-care (01) ==
LOC: MW.ED 12:00
DX: R07.89 Other chest pain (principal); I95.9 Hypotension, unspecified; E78.00 Pure hypercholesterolemia, unspecified; I10 Essential (primary) hypertension; I25.2 Old myocardial infarction; E11.9 Type 2 diabetes mellitus without complications; E66.9 Obesity, unspecified; Z68.37 Body mass index [BMI] 37.0-37.9, adult; Z87.891 Personal history of nicotine dependence; Z95.5 Presence of coronary angioplasty implant and graft; Z88.0 Allergy status to penicillin; Z88.1 Allergy status to other antibiotic agents; Z88.5 Allergy status to narcotic agent; Z88.8 Allergy status to other drugs, medicaments and biological substances; Z79.82 Long term (current) use of aspirin; Z79.02 Long term (current) use of antithrombotics/antiplatelets; Z79.899 Other long term (current) drug therapy
CPT/HCPCS: 36415; 80053; 84484; 85025; 93005; 99285; A9270

== ENCOUNTER 2022-02-05 16:42 | Emergency (ER) | payer BC ==
[2022-02-05] MEDS ORDERED: Sodium Chloride 0.9% 10 ML Syringe FLUSH PRN (17:08)
[2022-02-05] MEDS ORDERED: Sodium Chloride 0.9% 2.5 ML Syringe FLUSH PRN (17:08)
[2022-02-05] MEDS ORDERED: Morphine 2 MG/ML SYRINGE IVPUSH ONE (17:17)
[2022-02-05] MEDS ORDERED: Ondansetron 4 MG/2 ML SDV IVPUSH ONE (17:18)
[2022-02-05 17:55] LABS: BLOOD UREA NITROGEN,BUN 14 mg/dL (7.0-18.0); CARBON DIOXIDE,CO2 28.2 mmol/L (21.0-32.0); CHLORIDE,CL 99 mmol/L (98-107); GLUCOSE RANDOM 141 mg/dL (74-106); POTASSIUM,K 3.2 mmol/L (3.5-5.1); SODIUM,NA 139 mmol/L (136-145)
[2022-02-05 18:00] LABS: CORONAVIRUS COVID-19 NAA NEGATIVE (NEGATIVE); INFLUENZA A NAA NEGATIVE (NEGATIVE); INFLUENZA B NAA NEGATIVE (NEGATIVE)
[2022-02-05] MEDS ORDERED: Potassium Chloride 20 MEQ Tab.ER PO ONE (18:30)
[2022-02-05 18:57] VITALS: BP 114/69; PULSE 75
== END 2022-02-05 18:55 | disposition home or self-care (01) ==
LOC: MW.ED 16:42
DX: R07.89 Other chest pain (principal); E78.00 Pure hypercholesterolemia, unspecified; I10 Essential (primary) hypertension; I25.2 Old myocardial infarction; E11.9 Type 2 diabetes mellitus without complications; E66.9 Obesity, unspecified; Z68.37 Body mass index [BMI] 37.0-37.9, adult; Z95.5 Presence of coronary angioplasty implant and graft; Z88.0 Allergy status to penicillin; Z88.8 Allergy status to other drugs, medicaments and biological substances; Z79.82 Long term (current) use of aspirin; Z79.02 Long term (current) use of antithrombotics/antiplatelets; Z79.899 Other long term (current) drug therapy; Z79.84 Long term (current) use of oral hypoglycemic drugs; Z20.822 Contact with and (suspected) exposure to COVID-19
CPT/HCPCS: 0240U; 36415; 71045; 80053; 83735; 84484; 85025; 85610; 93005; 96374; 96375; 99285; J2270; J2405; J3490; 93010; 99284

== ENCOUNTER 2022-04-10 02:19 | Emergency (ER) | payer BC ==
[2022-04-10 03:31] LABS: BLOOD UREA NITROGEN,BUN 6 mg/dL (7.0-18.0); CARBON DIOXIDE,CO2 20.9 mmol/L (21.0-32.0); CHLORIDE,CL 105 mmol/L (98-107); GLUCOSE RANDOM 160 mg/dL (74-106); SODIUM,NA 138 mmol/L (136-145)
[2022-04-10 03:42] LABS: ESTIMATED GFR > 60.0 ml/min
[2022-04-10] MEDS ORDERED: Magnesium Oxide 400 MG Tab PO ONE (03:51)
[2022-04-10] MEDS ORDERED: Potassium Chloride 10% 20 MEQ/15 ML Soln 30 ML UD Cup PO ONE (03:51)
[2022-04-10 06:20] VITALS: BP 135/101; PULSE 83
== END 2022-04-10 06:19 | disposition home or self-care (01) ==
LOC: MW.ED 02:19
DX: R00.2 Palpitations (principal); E78.00 Pure hypercholesterolemia, unspecified; I25.10 Atherosclerotic heart disease of native coronary artery without angina pectoris; I10 Essential (primary) hypertension; I25.2 Old myocardial infarction; E11.9 Type 2 diabetes mellitus without complications; E66.9 Obesity, unspecified; Z68.37 Body mass index [BMI] 37.0-37.9, adult; Z95.5 Presence of coronary angioplasty implant and graft; Z88.0 Allergy status to penicillin; Z88.8 Allergy status to other drugs, medicaments and biological substances; Z79.82 Long term (current) use of aspirin; Z79.02 Long term (current) use of antithrombotics/antiplatelets; Z79.899 Other long term (current) drug therapy; Z87.891 Personal history of nicotine dependence
CPT/HCPCS: 36415; 71045; 80053; 83735; 84484; 85025; 93005; 99285; A9270; 93010; 99284

== ENCOUNTER 2022-05-05 10:48 | Emergency (ER) | payer BC ==
[2022-05-05 11:01] VITALS: BP 141/91; PULSE 99
[2022-05-05] MEDS ORDERED: methylPREDNISolone Sodium Succinate 125 MG/2 ML SDV IM ONE (11:15)
[2022-05-05] MEDS ORDERED: Acetaminophen/oxyCODONE 325-5 MG Tab PO ONE (11:16)
[2022-05-05 12:27] LABS: CARBON DIOXIDE,CO2 23.8 mmol/L (21.0-32.0); POTASSIUM,K 3.4 mmol/L (3.5-5.1)
[2022-05-05] MEDS ORDERED: Iopamidol 755 MG/ML 500 ML Multipack Bottle IVPUSH STA (13:49)
== END 2022-05-05 15:13 | disposition home or self-care (01) ==
LOC: MW.ED 10:48
DX: R07.89 Other chest pain (principal); E78.00 Pure hypercholesterolemia, unspecified; I10 Essential (primary) hypertension; I25.2 Old myocardial infarction; F17.210 Nicotine dependence, cigarettes, uncomplicated; Z79.82 Long term (current) use of aspirin; Z79.02 Long term (current) use of antithrombotics/antiplatelets; Z88.0 Allergy status to penicillin; Z88.8 Allergy status to other drugs, medicaments and biological substances; Z79.84 Long term (current) use of oral hypoglycemic drugs
CPT/HCPCS: 36415; 71045; 71275; 80053; 84484; 84703; 85025; 96372; 99285; A9270; J2930; Q9967

== ENCOUNTER 2022-06-29 10:11 | Emergency (ER) | payer BC ==
[2022-06-29] MEDS ORDERED: Aspirin 81 MG Tab.Chew PO STA (10:30)
[2022-06-29] MEDS ORDERED: Ondansetron 4 MG/2 ML SDV IVPUSH ONE (11:11)
[2022-06-29] MEDS ORDERED: Morphine 4 MG/ML VIAL IVPUSH ONE (11:11)
[2022-06-29] MEDS ORDERED: Nitroglycerin 0.4 MG Tab.SL SL PRN (11:12)
[2022-06-29 11:28] LABS: CARBON DIOXIDE,CO2 25.1 mmol/L (21.0-32.0); POTASSIUM,K 3.8 mmol/L (3.5-5.1)
[2022-06-29 13:01] VITALS: BP 111/75; PULSE 71
== END 2022-06-29 12:58 | disposition home or self-care (01) ==
LOC: MW.ED 10:11
DX: U07.1 COVID-19 (principal); I25.2 Old myocardial infarction; E78.00 Pure hypercholesterolemia, unspecified; I10 Essential (primary) hypertension; E11.9 Type 2 diabetes mellitus without complications; E66.9 Obesity, unspecified; Z68.34 Body mass index [BMI] 34.0-34.9, adult; Z88.0 Allergy status to penicillin; Z91.048 Other nonmedicinal substance allergy status; Z79.82 Long term (current) use of aspirin; Z79.899 Other long term (current) drug therapy
CPT/HCPCS: 36415; 71045; 80053; 84484; 85025; 85379; 85610; 85730; 86140; 93005; 96374; 96375; 99285; A9270; J2270; J2405; 93010; 99284

== ENCOUNTER 2022-09-17 16:18 | Emergency (ER) | payer BC ==
[2022-09-17] MEDS ORDERED: Albuterol/Ipratropium 3.0-0.5 MG/3 ML Neb Soln NEB ONE (17:06)
[2022-09-17 17:20] LABS: CARBON DIOXIDE,CO2 24.9 mmol/L (21.0-32.0); POTASSIUM,K 3.5 mmol/L (3.5-5.1)
[2022-09-17 17:52] LABS: CORONAVIRUS COVID-19 NAA NEGATIVE (NEGATIVE); INFLUENZA A NAA NEGATIVE (NEGATIVE); INFLUENZA B NAA NEGATIVE (NEGATIVE); RESPIRATORY SYNCYTIAL VIR NAA NEGATIVE (NEGATIVE)
[2022-09-17] MEDS ORDERED: Acetaminophen 325 MG Tab PO ONE (18:01)
[2022-09-17 18:07] VITALS: BP 122/86; PULSE 77
== END 2022-09-17 19:33 | disposition home or self-care (01) ==
LOC: MW.ED 16:18
DX: R07.89 Other chest pain (principal); E78.00 Pure hypercholesterolemia, unspecified; I10 Essential (primary) hypertension; I25.2 Old myocardial infarction; E11.9 Type 2 diabetes mellitus without complications; F17.210 Nicotine dependence, cigarettes, uncomplicated; E66.9 Obesity, unspecified; Z68.35 Body mass index [BMI] 35.0-35.9, adult; Z88.0 Allergy status to penicillin; Z88.8 Allergy status to other drugs, medicaments and biological substances; Z79.82 Long term (current) use of aspirin; Z79.84 Long term (current) use of oral hypoglycemic drugs; Z79.899 Other long term (current) drug therapy; Z79.02 Long term (current) use of antithrombotics/antiplatelets; Z20.822 Contact with and (suspected) exposure to COVID-19
CPT/HCPCS: 0241U; 36415; 71046; 80053; 84484; 85025; 93005; 99285; A9270; J7620-GY

== ENCOUNTER 2022-09-18 17:51 | Emergency (ER) | payer BC ==
[2022-09-18 21:42] VITALS: BP 126/68; PULSE 72
== END 2022-09-18 21:41 | disposition home or self-care (01) ==
LOC: MW.ED 17:51
DX: E11.42 Type 2 diabetes mellitus with diabetic polyneuropathy (principal); E78.00 Pure hypercholesterolemia, unspecified; I10 Essential (primary) hypertension; I25.2 Old myocardial infarction; E66.9 Obesity, unspecified; Z68.35 Body mass index [BMI] 35.0-35.9, adult; Z88.0 Allergy status to penicillin; Z88.8 Allergy status to other drugs, medicaments and biological substances; Z79.82 Long term (current) use of aspirin; Z79.02 Long term (current) use of antithrombotics/antiplatelets; Z79.899 Other long term (current) drug therapy
CPT/HCPCS: 99282

== ENCOUNTER 2022-11-21 11:22 | Emergency (ER) | payer BC ==
[2022-11-21] MEDS ORDERED: Sodium Chloride 0.9% 1,000 ML IV ONE (11:23)
[2022-11-21] MEDS ORDERED: Aspirin 81 MG Tab.Chew PO ONE (11:32)
[2022-11-21] MEDS ORDERED: Ondansetron 4 MG/2 ML SDV IVPUSH ONE (11:33)
[2022-11-21] MEDS ORDERED: Morphine 4 MG/ML Syringe IVPUSH ONE (11:33)
[2022-11-21 13:05] LABS: CARBON DIOXIDE,CO2 24.4 mmol/L (21.0-32.0); POTASSIUM,K 3.1 mmol/L (3.5-5.1)
[2022-11-21] MEDS ORDERED: Potassium Chloride 20 MEQ Tab.ER PO ONE (13:09)
[2022-11-21 13:14] LABS: CORONAVIRUS COVID-19 NAA NEGATIVE (NEGATIVE); INFLUENZA A NAA NEGATIVE (NEGATIVE); INFLUENZA B NAA NEGATIVE (NEGATIVE); RESPIRATORY SYNCYTIAL VIR NAA NEGATIVE (NEGATIVE)
[2022-11-21] MEDS ORDERED: Acetaminophen/HYDROcodone 325-5 MG Tab PO ONE (14:07)
[2022-11-21 14:24] VITALS: BP 125/78; PULSE 79
== END 2022-11-21 14:22 | disposition home or self-care (01) ==
LOC: MW.ED 11:22
DX: R07.89 Other chest pain (principal); J45.909 Unspecified asthma, uncomplicated; E78.00 Pure hypercholesterolemia, unspecified; I10 Essential (primary) hypertension; I25.2 Old myocardial infarction; E11.9 Type 2 diabetes mellitus without complications; E66.9 Obesity, unspecified; Z68.30 Body mass index [BMI] 30.0-30.9, adult; Z88.0 Allergy status to penicillin; Z88.6 Allergy status to analgesic agent; Z88.8 Allergy status to other drugs, medicaments and biological substances; Z79.82 Long term (current) use of aspirin; Z79.899 Other long term (current) drug therapy; Z79.84 Long term (current) use of oral hypoglycemic drugs; Z86.16 Personal history of COVID-19; Z90.49 Acquired absence of other specified parts of digestive tract; Z20.822 Contact with and (suspected) exposure to COVID-19
CPT/HCPCS: 0241U; 36415; 71045; 80053; 81001; 81025; 84484; 85025; 93005; 96361; 96374; 96375; 99285; A9270; J2270; J2405; J7030; 93010; 99284

== ENCOUNTER 2022-11-27 00:19 | Emergency (ER) | payer BC ==
[2022-11-27] MEDS ORDERED: Ondansetron 4 MG Tab.DIS PO ONE (02:41)
[2022-11-27 05:11] LABS: CARBON DIOXIDE,CO2 25.9 mmol/L (21.0-32.0); POTASSIUM,K 3.1 mmol/L (3.5-5.1)
[2022-11-27] MEDS ORDERED: Potassium Chloride 10% 20 MEQ/15 ML Soln 30 ML UD Cup PO ONE (05:39)
[2022-11-27 06:22] VITALS: BP 119/82; PULSE 80
== END 2022-11-27 06:33 | disposition home or self-care (01) ==
LOC: MW.ED 00:19
DX: R07.89 Other chest pain (principal); R11.0 Nausea; I10 Essential (primary) hypertension; E78.00 Pure hypercholesterolemia, unspecified; I25.2 Old myocardial infarction; J45.909 Unspecified asthma, uncomplicated; E11.9 Type 2 diabetes mellitus without complications; E66.9 Obesity, unspecified; Z68.34 Body mass index [BMI] 34.0-34.9, adult; Z79.82 Long term (current) use of aspirin; Z88.8 Allergy status to other drugs, medicaments and biological substances; Z88.0 Allergy status to penicillin; Z79.899 Other long term (current) drug therapy; Z79.84 Long term (current) use of oral hypoglycemic drugs
CPT/HCPCS: 36415; 71045; 80053; 83605; 83735; 83880; 84443; 84484; 84703; 85025; 85610; 93005; 99285; A9270

== ENCOUNTER 2023-01-17 10:59 | Emergency (ER) | payer BC ==
[2023-01-17] MEDS ORDERED: Sodium Chloride 0.9% 10 ML Syringe FLUSH PRN (11:01)
[2023-01-17] MEDS ORDERED: Sodium Chloride 0.9% 2.5 ML Syringe FLUSH PRN (11:01)
[2023-01-17] MEDS ORDERED: Ondansetron 4 MG/2 ML SDV IVPUSH ONE (11:30)
[2023-01-17] MEDS ORDERED: Morphine 4 MG/ML Syringe IVPUSH ONE (11:30)
[2023-01-17 12:19] LABS: CORONAVIRUS COVID-19 NAA NEGATIVE (NEGATIVE); INFLUENZA A NAA NEGATIVE (NEGATIVE); INFLUENZA B NAA NEGATIVE (NEGATIVE)
[2023-01-17 12:23] LABS: CARBON DIOXIDE,CO2 24.2 mmol/L (21.0-32.0); POTASSIUM,K 3.5 mmol/L (3.5-5.1)
[2023-01-17 13:23] VITALS: BP 138/94; PULSE 78
== END 2023-01-17 13:22 | disposition home or self-care (01) ==
LOC: MW.ED 10:59
DX: R07.89 Other chest pain (principal); I10 Essential (primary) hypertension; E78.00 Pure hypercholesterolemia, unspecified; I25.2 Old myocardial infarction; J45.909 Unspecified asthma, uncomplicated; E11.9 Type 2 diabetes mellitus without complications; E66.9 Obesity, unspecified; Z68.33 Body mass index [BMI] 33.0-33.9, adult; Z88.0 Allergy status to penicillin; Z88.8 Allergy status to other drugs, medicaments and biological substances; Z91.048 Other nonmedicinal substance allergy status; Z79.82 Long term (current) use of aspirin; Z79.02 Long term (current) use of antithrombotics/antiplatelets; Z79.899 Other long term (current) drug therapy; Z72.0 Tobacco use; Z20.822 Contact with and (suspected) exposure to COVID-19
CPT/HCPCS: 0240U; 36415; 71045; 80053; 81003; 83735; 84484; 85025; 93005; 96374; 96375; 99285; J2270; J2405; J3490; 93010; 99284

== ENCOUNTER 2023-01-24 14:04 | Emergency (ER) | payer BC ==
[2023-01-24 15:24] LABS: CARBON DIOXIDE,CO2 27.1 mmol/L (21.0-32.0); POTASSIUM,K 3.5 mmol/L (3.5-5.1)
[2023-01-24] MEDS ORDERED: Sodium Chloride 0.9% 1,000 ML IV ONE (15:50)
[2023-01-24] MEDS ORDERED: Iopamidol 755 MG/ML 500 ML Multipack Bottle IVPUSH STA (15:50)
[2023-01-24] MEDS ORDERED: Ondansetron 4 MG/2 ML SDV IVPUSH ONE (15:55)
[2023-01-24 17:12] VITALS: BP 145/97; PULSE 74
== END 2023-01-24 17:15 | disposition home or self-care (01) ==
LOC: MW.ED 14:04
DX: R07.89 Other chest pain (principal); I10 Essential (primary) hypertension; I25.2 Old myocardial infarction; E78.00 Pure hypercholesterolemia, unspecified; J45.909 Unspecified asthma, uncomplicated; I25.10 Atherosclerotic heart disease of native coronary artery without angina pectoris; E11.42 Type 2 diabetes mellitus with diabetic polyneuropathy; E66.9 Obesity, unspecified; Z68.33 Body mass index [BMI] 33.0-33.9, adult; Z88.8 Allergy status to other drugs, medicaments and biological substances; Z88.0 Allergy status to penicillin; Z79.82 Long term (current) use of aspirin; Z79.02 Long term (current) use of antithrombotics/antiplatelets; Z79.84 Long term (current) use of oral hypoglycemic drugs; Z79.899 Other long term (current) drug therapy; Z86.16 Personal history of COVID-19
CPT/HCPCS: 36415; 71045; 71275; 80053; 83880; 84484; 85025; 85379; 93005; 96361; 96374; 99285; J2405; J7030; Q9967; 93010; 99284

== ENCOUNTER 2023-04-12 07:26 | Emergency (ER) | payer BC ==
[2023-04-12 08:37] VITALS: PULSE 94
[2023-04-12] MEDS ORDERED: Ondansetron 4 MG Tab.DIS PO ONE (08:54)
[2023-04-12] MEDS ORDERED: Dexamethasone 10 MG/ML SDV PO ONE (08:55)
[2023-04-12] MEDS ORDERED: diphenhydrAMINE 25 MG Cap PO ONE (09:17)
[2023-04-12] MEDS ORDERED: Acetaminophen/HYDROcodone 325-5 MG Tab PO ONE (09:17)
[2023-04-12 09:35] VITALS: BP 128/83
== END 2023-04-12 10:07 | disposition home or self-care (01) ==
LOC: MW.ED 07:26
DX: T78.40XA Allergy, unspecified, initial encounter (principal); I10 Essential (primary) hypertension; E78.00 Pure hypercholesterolemia, unspecified; I25.2 Old myocardial infarction; J45.909 Unspecified asthma, uncomplicated; M19.90 Unspecified osteoarthritis, unspecified site; E11.9 Type 2 diabetes mellitus without complications; E66.9 Obesity, unspecified; Z68.33 Body mass index [BMI] 33.0-33.9, adult; Z86.16 Personal history of COVID-19; Z88.0 Allergy status to penicillin; Z88.8 Allergy status to other drugs, medicaments and biological substances; Z79.82 Long term (current) use of aspirin; Z79.02 Long term (current) use of antithrombotics/antiplatelets; Z79.899 Other long term (current) drug therapy; Z79.84 Long term (current) use of oral hypoglycemic drugs
CPT/HCPCS: 99283; A9270; J8540

== ENCOUNTER 2023-09-09 21:17 | Observation (INO) | payer BC ==
[2023-09-09] MEDS ORDERED: Sodium Chloride 0.9% 1,000 ML IV ONE (21:36)
[2023-09-09] MEDS ORDERED: Sodium Chloride 0.9% 10 ML Syringe FLUSH PRN (21:36)
[2023-09-09] MEDS ORDERED: Sodium Chloride 0.9% 2.5 ML Syringe FLUSH PRN (21:36)
[2023-09-09 21:55] LABS: BASOPHILS ABSOLUTE AUTO 0.07 K/uL (0.00-0.20); BASOPHILS PERCENT AUTO 0.7 % (0.0-1.0); EOSINOPHILS ABSOLUTE AUTO 0.27 K/uL (0.00-0.45); EOSINOPHILS PERCENT AUTO 2.8 % (0.0-6.0); HEMATOCRIT 42.3 % (37.0-47.0); HEMOGLOBIN 15.2 g/dL (12.0-16.0); IMMATURE GRAN ABSOLUTE AUTO 0.02 K/uL (0.00-0.05); IMMATURE GRAN PERCENT AUTO 0.2 % (0.0-0.4); LYMPHOCYTES ABSOLUTE AUTO 3.35 K/uL (1.00-4.80); MEAN CORPUSCULAR HEMOGLOBIN 30.6 pg (28.0-32.0); MEAN CORPUSCULAR HGB CONC 35.9 g/dL (32.0-36.0); MEAN CORPUSCULAR VOLUME 85.3 fL (83.0-99.0); MEAN PLATELET VOLUME 8.9 fL (9.4-12.3); MONOCYTES PERCENT AUTO 7.3 % (0.0-8.0); NEUTROPHILS ABSOLUTE AUTO 5.15 K/uL (1.80-7.70); PLATELET COUNT,PLT 345 K/uL (150-400); RED BLOOD CELL COUNT 4.96 M/uL (4.10-5.30); WHITE BLOOD CELL COUNT,WBC 9.56 K/uL (3.9-11.3)
[2023-09-09 22:24] LABS: CORONAVIRUS COVID-19 NAA NEGATIVE (NEGATIVE); INFLUENZA A NAA NEGATIVE (NEGATIVE); INFLUENZA B NAA NEGATIVE (NEGATIVE)
[2023-09-09 22:32] LABS: ALANINE AMINOTRANSFERASE,ALT 22 IU/L (14-63); ALBUMIN 3.7 g/dL (3.4-5.0); ALKALINE PHOSPHATASE 47 U/L (46-116); ASPARTATE AMNIOTRANSFERASE,AST 17 IU/L (15-37); BILIRUBIN TOTAL 0.2 mg/dL (0.2-1.0); BLOOD UREA NITROGEN,BUN 2 mg/dL (7.0-18.0); CALCIUM 8.8 mg/dL (8.5-10.1); CARBON DIOXIDE,CO2 25.9 mmol/L (21.0-32.0); CHLORIDE,CL 100 mmol/L (98-107); CREATININE 0.8 mg/dL (0.6-1.0); ESTIMATED GFR 93 mL/min (>60); GLUCOSE RANDOM 172 mg/dL (74-106); MAGNESIUM 1.7 mg/dL (1.8-2.4); POTASSIUM,K 3.2 mmol/L (3.5-5.1); PROTEIN TOTAL,TP 7.3 g/dL (6.4-8.2); SODIUM,NA 136 mmol/L (136-145)
[2023-09-09] MEDS ORDERED: Potassium Chloride 20 MEQ Tab.ER PO ONE (22:35)
[2023-09-09] MEDS ORDERED: Magnesium Sulfate/Water 2 GM in Premix Bag 1 BAG IV ONE (22:35)
[2023-09-10] MEDS ORDERED: 50% Dextrose in Water 50 ML Syringe IVPUSH PRN (02:13)
[2023-09-10] MEDS ORDERED: Glucagon,Human Recombinant 1 MG Vial IM PRN (02:13)
[2023-09-10] MEDS ORDERED: Isosorbide Mononitrate 60 MG Tab.ER PO SCH (02:15)
[2023-09-10 07:14] LABS: CALCIUM 8.2 mg/dL (8.5-10.1); CARBON DIOXIDE,CO2 22.9 mmol/L (21.0-32.0); CREATININE 0.7 mg/dL (0.6-1.0); EST CRCL DRUG DOSING (CG) 84.84 mL/min; POTASSIUM,K 4.2 mmol/L (3.5-5.1)
[2023-09-10] MEDS ORDERED: Insulin Aspart 100 Units/ML 3 ML Pen SUBCUT SCH (07:30)
[2023-09-10] MEDS ORDERED: Nitroglycerin 0.4 MG Tab.SL SL PRN (08:07)
[2023-09-10] MEDS ORDERED: Clopidogrel 75 MG Tab PO SCH (09:00)
[2023-09-10] MEDS ORDERED: MAGNESIUM CITRATE AND OXIDE 250 MG PO SCH (09:00)
[2023-09-10] MEDS ORDERED: Aspirin 81 MG Tab.EC PO SCH (09:00)
[2023-09-10] MEDS ORDERED: Lisinopril 5 MG Tablet PO SCH (09:00)
[2023-09-10] MEDS ORDERED: METOPROLOL SUCCINATE 200 MG PO SCH (09:00)
[2023-09-10] MEDS ORDERED: Gabapentin 600 MG Tablet PO SCH (14:00)
[2023-09-10 14:04] VITALS: BP 124/71; PULSE 93
[2023-09-10] MEDS ORDERED: Rosuvastatin Calcium [Crestor] 40 MG Tablet PO SCH (21:00)
[2023-09-11] MEDS ORDERED: Isosorbide Mononitrate 60 MG Tab.ER PO SCH ×2 (09:00)
== END 2023-09-10 13:30 | disposition home or self-care (01) ==
LOC: MW.ED 21:17 → MW.MS 09-10 00:34
PROVIDERS: ADMIT Internal Medicine; ATTEND Internal Medicine
DX: R07.89 Other chest pain (principal); R00.8 Other abnormalities of heart beat; E87.6 Hypokalemia; I10 Essential (primary) hypertension; E11.9 Type 2 diabetes mellitus without complications; I25.10 Atherosclerotic heart disease of native coronary artery without angina pectoris; J44.9 Chronic obstructive pulmonary disease, unspecified; E78.00 Pure hypercholesterolemia, unspecified; I25.2 Old myocardial infarction; J45.909 Unspecified asthma, uncomplicated; M79.7 Fibromyalgia; E66.9 Obesity, unspecified; F17.210 Nicotine dependence, cigarettes, uncomplicated; Z20.822 Contact with and (suspected) exposure to COVID-19; Z88.0 Allergy status to penicillin; Z95.5 Presence of coronary angioplasty implant and graft; Z88.8 Allergy status to other drugs, medicaments and biological substances; Z91.041 Radiographic dye allergy status; Z79.82 Long term (current) use of aspirin; Z79.84 Long term (current) use of oral hypoglycemic drugs; Z79.899 Other long term (current) drug therapy; Z79.02 Long term (current) use of antithrombotics/antiplatelets
CPT/HCPCS: 0240U; 36415; 71045; 80048; 80053; 82947; 83735; 84484; 85025; 93005; A9270; J3475; J3490; J7030; 93010; 96365; 96366; 99235; 99283; 99285-25; G0378

== ENCOUNTER 2023-11-09 12:46 | Observation (INO) | payer BC ==
[2023-11-09] MEDS ORDERED: Sodium Chloride 0.9% 2.5 ML Syringe FLUSH PRN (13:18)
[2023-11-09] MEDS ORDERED: Sodium Chloride 0.9% 10 ML Syringe FLUSH PRN (13:18)
[2023-11-09] MEDS ORDERED: Ondansetron 4 MG/2 ML SDV IVPUSH ONE (13:18)
[2023-11-09] MEDS ORDERED: Sodium Chloride 0.9% 1,000 ML IV ONE (13:25)
[2023-11-09 13:51] LABS: BASOPHILS ABSOLUTE AUTO 0.03 K/uL (0.00-0.20); BASOPHILS PERCENT AUTO 0.3 % (0.0-1.0); EOSINOPHILS ABSOLUTE AUTO 0.04 K/uL (0.00-0.45); EOSINOPHILS PERCENT AUTO 0.3 % (0.0-6.0); HEMATOCRIT 49.2 % (37.0-47.0); HEMOGLOBIN 17.2 g/dL (12.0-16.0); IMMATURE GRAN ABSOLUTE AUTO 0.04 K/uL (0.00-0.05); IMMATURE GRAN PERCENT AUTO 0.3 % (0.0-0.4); LYMPHOCYTES ABSOLUTE AUTO 0.62 K/uL (1.00-4.80); LYMPHOCYTES PERCENT AUTO 5.4 % (24.0-44.0); MEAN CORPUSCULAR HEMOGLOBIN 30.1 pg (28.0-32.0); MEAN CORPUSCULAR VOLUME 86.2 fL (83.0-99.0); MEAN PLATELET VOLUME 8.9 fL (9.4-12.3); MONOCYTES ABSOLUTE AUTO 0.53 K/uL (0.00-0.80); MONOCYTES PERCENT AUTO 4.6 % (0.0-8.0); NEUTROPHILS ABSOLUTE AUTO 10.21 K/uL (1.80-7.70); NEUTROPHILS PERCENT AUTO 89.1 % (41.0-71.0); PLATELET COUNT,PLT 341 K/uL (150-400); RED BLOOD CELL COUNT 5.71 M/uL (4.10-5.30); WHITE BLOOD CELL COUNT,WBC 11.47 K/uL (3.9-11.3)
[2023-11-09 14:17] LABS: LACTIC ACID 3.6 mmol/L (0.4-2.0)
[2023-11-09] MEDS ORDERED: Sodium Chloride 0.9% 1,000 ML IV STA (14:20)
[2023-11-09 14:26] LABS: A/G RATIO 1.2 (0.9-1.6); ALBUMIN 4.2 g/dL (3.4-5.0); BILIRUBIN TOTAL 0.5 mg/dL (0.2-1.0); CALCIUM 8.9 mg/dL (8.5-10.1); EST CRCL DRUG DOSING (CG) 56.19 mL/min; MAGNESIUM 1.3 mg/dL (1.8-2.4); PROTEIN TOTAL,TP 7.7 g/dL (6.4-8.2); TSH ULTRASENSITIVE 0.94 uIU/mL (0.36-3.74)
[2023-11-09] MEDS ORDERED: droPERidol 5 MG/2 ML SDV IVPUSH ONE (15:07)
[2023-11-09 15:22] LABS: CORONAVIRUS COVID-19 NAA NEGATIVE (NEGATIVE); INFLUENZA A NAA NEGATIVE (NEGATIVE); INFLUENZA B NAA NEGATIVE (NEGATIVE)
[2023-11-09] MEDS ORDERED: Aspirin 81 MG Tab.Chew PO ONE (15:57)
[2023-11-09] MEDS: Metoprolol Succinate 100 MG Tab.ER PO SCH (16:11)
[2023-11-09 17:30] LABS: BASE EXCESS VENOUS -3.8 (-2.0-3.0); PH,VENOUS 7.41 (7.31-7.41)
[2023-11-09 18:11] LABS: CALCIUM 7.9 mg/dL (8.5-10.1); CARBON DIOXIDE,CO2 20.8 mmol/L (21.0-32.0); CREATININE 0.8 mg/dL (0.6-1.0); EST CRCL DRUG DOSING (CG) 70.24 mL/min; POTASSIUM,K 3.9 mmol/L (3.5-5.1)
[2023-11-09] MEDS ORDERED: Metoprolol Tartrate 5 MG in Sodium Chloride 0.9% 50 ML IV ONE (18:39)
[2023-11-09] MEDS ORDERED: Metoprolol Tartrate 5 MG/5 ML SDV IVPUSH STA (18:44)
[2023-11-09] MEDS ORDERED: Magnesium Sulfate/Water 2 GM in Premix Bag 1 BAG IV STA (18:55)
[2023-11-09] MEDS ORDERED: Glucagon,Human Recombinant 1 MG Vial IM PRN (19:42)
[2023-11-09] MEDS ORDERED: 50% Dextrose in Water 50 ML Syringe IVPUSH PRN (19:42)
[2023-11-09] MEDS ORDERED: Acetaminophen 325 MG Tab PO PRN (19:52)
[2023-11-09] MEDS ORDERED: Ondansetron 4 MG/2 ML SDV IVPUSH PRN (19:52)
[2023-11-09] MEDS ORDERED: Albuterol/Ipratropium 3.0-0.5 MG/3 ML Neb Soln NEB PRN (19:52)
[2023-11-09] MEDS ORDERED: Pantoprazole 40 MG in Sodium Chloride 0.9% 10 ML IVPUSH SCH (20:00)
[2023-11-09] MEDS ORDERED: Sodium Chloride 0.9% 1,000 ML IV SCH (20:00)
[2023-11-09] MEDS ORDERED: Non-Formulary Medication 1 Each (Albuterol 8.5 GM Hfa.Aer.Ad) INH PRN (20:07)
[2023-11-09] MEDS ORDERED: Nitroglycerin 0.4 MG Tab.SL SL PRN (20:07)
[2023-11-09] MEDS: Sodium Chloride 0.9% 1,000 ML IV SCH (20:56)
[2023-11-09] MEDS: Insulin Aspart 100 Units/ML 3 ML Pen SUBCUT SCH (20:59)
[2023-11-09] MEDS ORDERED: Non-Formulary Medication 1 Each (Duloxetine 20 MG Cap) PO SCH (21:00)
[2023-11-09] MEDS: Diltiazem 120 MG Cap.CD PO SCH (21:06)
[2023-11-09] MEDS ORDERED: Albuterol 8 GM Inhaler INH PRN (21:27)
[2023-11-09] MEDS ORDERED: Sodium Chloride 0.9% 10 ML SDV IV ONE (21:32)
[2023-11-09 21:35] LABS: APPEARANCE,URINE CLEAR; BILIRUBIN,URINE NEGATIVE (NEGATIVE); COLOR,URINE YELLOW; GLUCOSE,URINE NEGATIVE (NEGATIVE); KETONES,URINE TRACE mg/dL (NEGATIVE); LEUKOCYTE ESTERASE,URINE NEGATIVE (NEGATIVE); NITRITE,URINE NEGATIVE (NEGATIVE); OCCULT BLOOD,URINE TRACE-INTACT (NEGATIVE); PROTEIN,URINE NEGATIVE (NEGATIVE); UROBILINOGEN,URINE 0.2 EU/dL (<2.0)
[2023-11-09 21:42] LABS: AMPHETAMINES SCREEN, URINE NEGATIVE (CUTOFF=500); BARBITURATE SCREEN,URINE NEGATIVE (CUTOFF=200); BENZODIAZEPINES SCREEN,URINE NEGATIVE (CUTOFF=150); BUPRENORPHINE SCREEN,URINE NEGATIVE (CUTOFF=10); METHADONE SCREEN, URINE NEGATIVE (CUTOFF=200); METHAMPHETAMINES SCREEN, URINE NEGATIVE (CUTOFF=500); OXYCODONE SCREEN,URINE NEGATIVE (CUT0FF=100); PCP SCREEN,URINE NEGATIVE (CUTOFF=25); THC SCREEN,URINE 20 NG/ML NEGATIVE (CUTOFF=50)
[2023-11-09 21:55] LABS: BACTERIA,URINE FEW (NEGATIVE); EPITHELIAL CELLS,URINE FEW (NONE-FEW); RBC,URINE 0-1 (0-2/HPF); WBC,URINE 0-2 (0-5/HPF)
[2023-11-09 21:59] LABS: LACTIC ACID 2.1 mmol/L (0.4-2.0)
[2023-11-10 06:12] LABS: HEMATOCRIT 39.3 % (37.0-47.0); HEMOGLOBIN 13.8 g/dL (12.0-16.0); MEAN CORPUSCULAR HEMOGLOBIN 30.1 pg (28.0-32.0); MEAN CORPUSCULAR HGB CONC 35.1 g/dL (32.0-36.0); MEAN CORPUSCULAR VOLUME 85.8 fL (83.0-99.0); PLATELET COUNT,PLT 246 K/uL (150-400); RED BLOOD CELL COUNT 4.58 M/uL (4.10-5.30); WHITE BLOOD CELL COUNT,WBC 7.12 K/uL (3.9-11.3)
[2023-11-10] MEDS: Sodium Chloride 0.9% 1,000 ML IV SCH (06:31)
[2023-11-10] MEDS: Insulin Aspart 100 Units/ML 3 ML Pen SUBCUT SCH (06:33)
[2023-11-10 06:41] LABS: ALBUMIN 3.2 g/dL (3.4-5.0); BILIRUBIN TOTAL 0.4 mg/dL (0.2-1.0); CALCIUM 7.1 mg/dL (8.5-10.1); CARBON DIOXIDE,CO2 21.8 mmol/L (21.0-32.0); CREATININE 0.7 mg/dL (0.6-1.0); EST CRCL DRUG DOSING (CG) 80.27 mL/min; MAGNESIUM 1.8 mg/dL (1.8-2.4); POTASSIUM,K 3.7 mmol/L (3.5-5.1); PROTEIN TOTAL,TP 6.4 g/dL (6.4-8.2)
[2023-11-10 08:53] VITALS: BP 116/63; PULSE 79
[2023-11-10] MEDS: Metoprolol Succinate 100 MG Tab.ER PO SCH (08:53)
[2023-11-10] MEDS: Diltiazem 120 MG Cap.CD PO SCH (08:54)
[2023-11-10] MEDS ORDERED: Metoprolol Succinate 100 MG Tab.ER PO SCH (09:00)
[2023-11-10] MEDS ORDERED: Aspirin 81 MG Tab.EC PO SCH (09:00)
[2023-11-10] MEDS ORDERED: Non-Formulary Medication 1 Each (Duloxetine 20 MG Cap) PO SCH (09:00)
[2023-11-10] MEDS ORDERED: Clopidogrel 75 MG Tab PO SCH (09:00)
[2023-11-10] MEDS ORDERED: Rosuvastatin 10 MG Tab PO SCH (09:00)
[2023-11-10] MEDS ORDERED: Isosorbide Mononitrate 60 MG Tab.ER PO SCH (18:00)
== END 2023-11-10 09:10 | disposition home or self-care (01) ==
LOC: MW.ED 12:46 → MW.MS 18:51
PROVIDERS: ADMIT Family Medicine; ATTEND Family Medicine
DX: R00.0 Tachycardia, unspecified (principal); I25.10 Atherosclerotic heart disease of native coronary artery without angina pectoris; E11.9 Type 2 diabetes mellitus without complications; E78.00 Pure hypercholesterolemia, unspecified; E83.42 Hypomagnesemia; F17.200 Nicotine dependence, unspecified, uncomplicated; Z20.822 Contact with and (suspected) exposure to COVID-19; Z79.51 Long term (current) use of inhaled steroids; Z79.899 Other long term (current) drug therapy; Z88.8 Allergy status to other drugs, medicaments and biological substances; Z88.0 Allergy status to penicillin
CPT/HCPCS: 0240U; 36415; 71046; 80048; 80053; 80305; 81001; 82803; 82947; 83605; 83690; 83735; 83880; 84443; 84484; 85025; 85027; 87040; 87086; 96361; 96365; 96366; 96375; 99285; A9270; C9113; G0378; J1790; J2405; J3475; J3490; J7030; 93010

== ENCOUNTER 2025-06-27 08:45 | Emergency (ER) | payer BC, MEDICAID, OTHER ==
[2025-06-27] MEDS ORDERED: Sodium Chloride 0.9% 2.5 ML Syringe FLUSH PRN (09:05)
[2025-06-27] MEDS ORDERED: Sodium Chloride 0.9% 10 ML Syringe FLUSH PRN (09:05)
[2025-06-27 09:36] LABS: BASOPHILS ABSOLUTE AUTO 0.08 K/uL (0.00-0.20); BASOPHILS PERCENT AUTO 1.1 % (0.0-1.0); EOSINOPHILS ABSOLUTE AUTO 0.19 K/uL (0.00-0.45); EOSINOPHILS PERCENT AUTO 2.5 % (0.0-6.0); IMMATURE GRAN ABSOLUTE AUTO 0.02 K/uL (0.00-0.05); IMMATURE GRAN PERCENT AUTO 0.3 % (0.0-0.4); LYMPHOCYTES ABSOLUTE AUTO 2.34 K/uL (1.00-4.80); LYMPHOCYTES PERCENT AUTO 31.4 % (24.0-44.0); MEAN PLATELET VOLUME 8.9 fL (9.4-12.3); MONOCYTES ABSOLUTE AUTO 0.55 K/uL (0.00-0.80); MONOCYTES PERCENT AUTO 7.4 % (0.0-8.0); NEUTROPHILS ABSOLUTE AUTO 4.28 K/uL (1.80-7.70); NEUTROPHILS PERCENT AUTO 57.3 % (41.0-71.0); NRBC ABSOLUTE 0.00 K/uL (0.00-0.02); NRBC PERCENT 0.0 /100WBC (0.0-0.2); PLATELET COUNT,PLT 356 K/uL (150-400); RED BLOOD CELL COUNT 5.61 M/uL (4.10-5.30); WHITE BLOOD CELL COUNT,WBC 7.46 K/uL (3.9-11.3)
[2025-06-27 10:03] LABS: A/G RATIO 1.1 (0.9-1.6); ALANINE AMINOTRANSFERASE,ALT 47.0 IU/L (14-63); ASPARTATE AMNIOTRANSFERASE,AST 32.0 IU/L (15-37); BILIRUBIN TOTAL 0.3 mg/dL (0.2-1.0); BLOOD UREA NITROGEN,BUN 5.0 mg/dL (7.0-18.0); CARBON DIOXIDE,CO2 25.7 mmol/L (21.0-32.0); CHLORIDE,CL 100.0 mmol/L (98-107); CREATININE 0.9 mg/dL (0.6-1.0); EST CRCL DRUG DOSING (CG) 63.19 mL/min; GLUCOSE RANDOM 127.0 mg/dL (74-106); POTASSIUM,K 4.2 mmol/L (3.5-5.1); PROTEIN TOTAL,TP 8.7 g/dL (6.4-8.2); SODIUM,NA 138.0 mmol/L (136-145)
[2025-06-27 10:05] LABS: ESTIMATED GFR 80.0 mL/min (>60)
[2025-06-27 10:29] VITALS: BP 150/98; PULSE 83
== END 2025-06-27 10:31 | disposition home or self-care (01) ==
LOC: MW.ED 08:45
DX: G89.29 Other chronic pain (principal); R52 Pain, unspecified; I10 Essential (primary) hypertension; I25.2 Old myocardial infarction; I25.10 Atherosclerotic heart disease of native coronary artery without angina pectoris; J45.909 Unspecified asthma, uncomplicated; E11.9 Type 2 diabetes mellitus without complications; Z86.16 Personal history of COVID-19; Z88.0 Allergy status to penicillin; Z88.5 Allergy status to narcotic agent; Z88.8 Allergy status to other drugs, medicaments and biological substances; Z91.041 Radiographic dye allergy status; Z79.51 Long term (current) use of inhaled steroids; Z79.82 Long term (current) use of aspirin; Z79.899 Other long term (current) drug therapy; Z79.85 Long-term (current) use of injectable non-insulin antidiabetic drugs; Z79.02 Long term (current) use of antithrombotics/antiplatelets; Z79.84 Long term (current) use of oral hypoglycemic drugs; E78.00 Pure hypercholesterolemia, unspecified
CPT/HCPCS: 36415; 80053; 85025; 99283; A9270